=== PATIENT | female | born 1980 | race African-American/Black ===

== ENCOUNTER 2017-05-03 18:00 | Emergency (ER) | payer OTHER | END 2017-05-03 18:44 | disposition home or self-care (01) | LOC: ERS 18:00 | DX: S29.012A Strain of muscle and tendon of back wall of thorax, initial encounter (principal); S39.012A Strain of muscle, fascia and tendon of lower back, initial encounter; F32.9 Major depressive disorder, single episode, unspecified; F41.9 Anxiety disorder, unspecified; F43.10 Post-traumatic stress disorder, unspecified; F17.210 Nicotine dependence, cigarettes, uncomplicated; Z79.899 Other long term (current) drug therapy; V43.62XA Car passenger injured in collision with other type car in traffic accident, initial encounter | CPT/HCPCS: 99284 ==

== ENCOUNTER 2017-07-10 11:30 | Emergency (ER) | payer OTHER ==
--- NOTE | 2017-07-10 12:15 | RAD ---
LEFT HAND 3 VIEWS: Date: 07/10/17 HISTORY: Trauma to hand. FINDINGS: There are no signs of fracture or dislocation. IMPRESSION: Negative left hand. POS: [facility]
[2017-07-10] MEDS ORDERED: Acetaminophen 500 MG TAB ONE ×2 (13:00→13:03)
== END 2017-07-10 13:02 | disposition home or self-care (01) ==
LOC: ERS 11:30
DX: M79.642 Pain in left hand (principal); F32.9 Major depressive disorder, single episode, unspecified; F41.9 Anxiety disorder, unspecified; F43.10 Post-traumatic stress disorder, unspecified; F17.210 Nicotine dependence, cigarettes, uncomplicated; W22.01XA Walked into wall, initial encounter
CPT/HCPCS: 29125

== ENCOUNTER 2017-10-07 14:22 | Emergency (ER) | payer OTHER | END 2017-10-07 15:07 | disposition left against medical advice (07) | LOC: ERS 14:22 | DX: Z53.21 Procedure and treatment not carried out due to patient leaving prior to being seen by health care provider (principal) ==

== ENCOUNTER 2017-10-08 12:01 | Emergency (ER) | payer OTHER ==
[2017-10-08 15:19] LABS: #Basophils 0.1 thou/uL (0.0-0.2); #Lymphocytes 2.4 thou/uL (1.20-3.40); #Monocytes 0.4 thou/uL (0.11-0.59); #Neutrophils 2.1 thou/uL (1.40-6.50); %Basophils 1.4 % (0.0-1.0); %Lymphocytes 48.9 % (21.0-51.0); %Monocytes 7.2 % (0.0-10.0); %Neutrophils 41.6 % (42.0-75.0); Hemoglobin 15.1 g/dL (12.0-16.0); Mean Corpuscular HGB CONC 33.7 g/dL (32.0-36.0); Mean Corpuscular Hemoglobin 33.9 pg (27.0-31.0); Mean Platelet Volume 7.6 fL (7.4-10.4); Platelet Count 193 thou/uL (130-400); RBC Distribution Width 11.6 % (11.5-14.5); Red Blood Cell (RBC) Count 4.45 mill/uL (4.20-5.40)
[2017-10-08 15:37] LABS: BHCG - Serum Negative (NEGATIVE); Pregs Control Background? CLEAR/WHITE (CLR/WHITE); Pregs Control Bar Appear? YES (CONTROL BAR)
[2017-10-08 15:39] LABS: ALT (SGPT) 9 U/L (8-55); AST (SGOT) 17 U/L (5-34); Albumin 4.9 g/dL (3.5-5.0); Alkaline Phosphatase 75 U/L (40-150); Anion Gap 12 mmol/L (10-20); BUN (Urea Nitrogen) 11 mg/dL (7.0-18.7); Bilirubin, Total 0.6 mg/dL (0.2-1.2); Calc. Creatinine Clearance 0 mL/min (70-130); Carbon Dioxide 27 mmol/L (22-29); Chloride 103 mmol/L (98-107); Estimated GFR-MDRD 89; Globulin 2.9 g/dL (2.4-3.5); Glucose 83 mg/dL (70-105); Potassium 3.9 mmol/L (3.5-5.1); Protein, Total 7.8 g/dL (6.0-8.3); Sodium 138 mmol/L (136-145)
--- NOTE | 2017-10-08 15:50 | CT ---
NONCONTRAST CT HEAD: 10/08/17 HISTORY: Headache and neck stiffness. Patient's symptoms have been present for one month. COMPARISON: 03/10/17. FINDINGS: There is no evidence of a hemorrhage, acute infarction, mass effect, or midline shift. Ventricular sy stem is normal in size, shape, and position. There has been no interval change when compared to the p rior exam. IMPRESSION: No acute intracranial abnormality is demonstrated. POS: [facility]
[2017-10-08] MEDS ORDERED: Ketorolac Tromethamine 30 MG/ML VIAL ONE (15:52)
[2017-10-08] MEDS ORDERED: diphenhydrAMINE 50 MG/ML VIAL ONE (15:52)
[2017-10-08] MEDS ORDERED: methylPREDNISolone Sod Succ/PF 125 MG/2 ML VIAL ONE (17:40)
[2017-10-08] MEDS ORDERED: Magnesium Sulfate 2 GM/100 ML BAG ONE (17:40)
--- NOTE | 2017-10-12 13:25 | EKG ---
Test Reason : Blood Pressure : / mmHG Vent. Rate : 059 BPM Atrial Rate : 059 BPM P-R Int : 154 ms QRS Dur : 086 ms QT Int : 422 ms P-R-T Axes : 067 071 033 degrees QTc Int : 417 ms Sinus bradycardia with sinus arrhythmia Otherwise normal ECG Confirmed by SHIRA VEGA, CHEO ([id number]), commissioning editor VANESSA DAVIS ([id number]) on 10/12/2017 1:25:04 PM Referred By: Confirmed By:CHEO SILVA MD
== END 2017-10-08 19:00 | disposition home or self-care (01) ==
LOC: ERS 12:01
DX: G43.909 Migraine, unspecified, not intractable, without status migrainosus (principal); F41.9 Anxiety disorder, unspecified; F32.9 Major depressive disorder, single episode, unspecified; F17.210 Nicotine dependence, cigarettes, uncomplicated; F43.10 Post-traumatic stress disorder, unspecified
CPT/HCPCS: 70450; 80053; 84703; 85025; 93005; 96361; 96365; 96375; 99406; J1200; J1885; J2930; J3475

== ENCOUNTER 2017-11-27 18:57 | Emergency (ER) | payer OTHER ==
--- NOTE | 2017-11-27 20:19 | RAD ---
THREE VIEWS OF THE LEFT SHOULDER: 11/27/17 INDICATION; Left shoulder pain. COMPARISON: None. FINDINGS: No acute fracture or subluxation is evident. The visualized left lung is clear. AC joint is normal ap pearing. IMPRESSION: No acute osseous abnormality. POS: [facility]
--- NOTE | 2017-11-27 20:32 | RAD ---
FIVE VIEWS CERVICAL SPINE: 11/27/17 INDICATION: History of neck injury. FINDINGS: The exam is compared to a prior dated 02/25/12. The spinal alignment is preserved. Prevertebral soft tissues are normal in appearance. No acute fract ure or subluxation is evident. Lung apices are clear. Lateral masses are symmetric appearing. IMPRESSION: No acute osseous abnormality. POS: [facility]
[2017-11-27] MEDS ORDERED: Acetaminophen 500 MG TAB ONE (20:44)
== END 2017-11-27 21:02 | disposition home or self-care (01) ==
LOC: ERS 18:57
DX: S16.1XXA Strain of muscle, fascia and tendon at neck level, initial encounter (principal); S46.911A Strain of unspecified muscle, fascia and tendon at shoulder and upper arm level, right arm, initial encounter; F41.9 Anxiety disorder, unspecified; F32.9 Major depressive disorder, single episode, unspecified; F43.10 Post-traumatic stress disorder, unspecified; F17.210 Nicotine dependence, cigarettes, uncomplicated; W17.89XA Other fall from one level to another, initial encounter
CPT/HCPCS: 72040

== ENCOUNTER 2018-01-19 02:53 | Emergency (ER) | payer OTHER ==
[2018-01-19] MEDS ORDERED: Lorazepam 2 MG/ML VIAL ONE (03:46)
[2018-01-19 04:28] LABS: #Basophils 0.1 thou/uL (0.0-0.2); #Eosinphils 0.1 thou/uL (0.0-0.7); #Lymphocytes 1.3 thou/uL (1.20-3.40); #Monocytes 0.3 thou/uL (0.11-0.59); #Neutrophils 3.5 thou/uL (1.40-6.50); %Eosinophils 1.9 % (0.0-10.0); %Monocytes 5.6 % (0.0-10.0); %Neutrophils 66.5 % (42.0-75.0); Hemoglobin 14.8 g/dL (12.0-16.0); Mean Corpuscular HGB CONC 33.6 g/dL (32.0-36.0); Mean Corpuscular Hemoglobin 32.9 pg (27.0-31.0); Mean Corpuscular Volume 97.9 fl (81.0-99.0); Mean Platelet Volume 7.9 fL (7.4-10.4); Platelet Count 174 thou/uL (130-400); RBC Distribution Width 11.6 % (11.5-14.5); Red Blood Cell (RBC) Count 4.51 mill/uL (4.20-5.40); White Blood Cell (WBC) Count 5.2 thou/uL (4.8-10.8)
[2018-01-19 04:43] LABS: BHCG - Serum Negative (NEGATIVE)
[2018-01-19 04:44] LABS: Pregs Control Background? CLEAR/WHITE (CLR/WHITE); Pregs Control Bar Appear? YES (CONTROL BAR)
[2018-01-19 05:04] LABS: ALT (SGPT) 8 U/L (8-55); AST (SGOT) 19 U/L (5-34); Alkaline Phosphatase 81 U/L (40-150); Anion Gap 12 mmol/L (10-20); BUN (Urea Nitrogen) 14 mg/dL (7.0-18.7); Bilirubin, Total 0.3 mg/dL (0.2-1.2); CK (CPK) 195 U/L (29-168); Calc. Creatinine Clearance 0 mL/min (70-130); Carbon Dioxide 26 mmol/L (22-29); Chloride 102 mmol/L (98-107); Estimated GFR-MDRD 74; Globulin 2.9 g/dL (2.4-3.5); Glucose 100 mg/dL (70-105); Potassium 3.3 mmol/L (3.5-5.1); Protein, Total 7.9 g/dL (6.0-8.3); Sodium 137 mmol/L (136-145)
[2018-01-19 05:08] LABS: CKMB 0.6 ng/mL (0-6.6); Troponin I Less than 0.010 ng/mL (< 0.028)
== END 2018-01-19 06:30 | disposition home or self-care (01) ==
LOC: ERS 02:53
DX: F12.10 Cannabis abuse, uncomplicated (principal); R00.2 Palpitations; F41.9 Anxiety disorder, unspecified; F32.9 Major depressive disorder, single episode, unspecified; F43.10 Post-traumatic stress disorder, unspecified
CPT/HCPCS: 80053; 82553; 84484; 84703; 85025; 93005; 96361; 96374; J2060

== ENCOUNTER 2018-01-29 12:03 | Observation (INO) | payer OTHER ==
[2018-01-29 13:33] LABS: #Lymphocytes 1.6 thou/uL (1.20-3.40); #Monocytes 0.2 thou/uL (0.11-0.59); #Neutrophils 2.4 thou/uL (1.40-6.50); %Basophils 0.9 % (0.0-1.0); %Eosinophils 0.8 % (0.0-10.0); %Lymphocytes 37.5 % (21.0-51.0); %Monocytes 4.1 % (0.0-10.0); %Neutrophils 56.7 % (42.0-75.0); Hemoglobin 14.6 g/dL (12.0-16.0); Mean Corpuscular Hemoglobin 33.4 pg (27.0-31.0); Mean Corpuscular Volume 98.1 fL (78.0-98.0); Mean Platelet Volume 7.8 fL (7.4-10.4); Platelet Count 173 thou/uL (130-400); RBC Distribution Width 11.6 % (11.5-14.5); Red Blood Cell (RBC) Count 4.37 mill/uL (4.20-5.40); White Blood Cell (WBC) Count 4.2 thou/uL (4.8-10.8)
--- NOTE | 2018-01-29 13:52 | RAD ---
2 VIEWS CHEST: Date: 01/29/18 COMPARISON: 10/06/15. HISTORY: Chest pain. FINDINGS: Two views of the chest show normal sized cardiomediastinal silhouette. There is no evidence of consol idation, mass, or pleural effusion. The bones are unremarkable. IMPRESSION: No evidence of acute cardiopulmonary disease. POS: [facility]
[2018-01-29 13:56] LABS: ALT (SGPT) 10 U/L (8-55); AST (SGOT) 16 U/L (5-34); Alkaline Phosphatase 63 U/L (40-150); Anion Gap 9 mmol/L (10-20); BUN (Urea Nitrogen) 11 mg/dL (7.0-18.7); Bilirubin, Total 0.3 mg/dL (0.2-1.2); CK (CPK) 170 U/L (29-168); Calc. Creatinine Clearance 0 mL/min (70-130); Calcium 8.5 mg/dL (7.8-10.44); Carbon Dioxide 24 mmol/L (22-29); Chloride 112 mmol/L (98-107); Estimated GFR-MDRD Greater than 90; Globulin 2.2 g/dL (2.4-3.5); Glucose 68 mg/dL (70-105); Potassium 3.5 mmol/L (3.5-5.1); Protein, Total 6.2 g/dL (6.0-8.3); Sodium 141 mmol/L (136-145)
[2018-01-29 13:58] LABS: CKMB 0.7 ng/mL (0-6.6); Troponin I Less than 0.010 ng/mL (< 0.028)
[2018-01-29] MEDS ORDERED: Lorazepam 2 MG/ML VIAL ONE (14:38)
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
[2018-01-29] MEDS ORDERED: Ondansetron HCl/PF 4 MG/2 ML Vial IVP PRN (17:08)
[2018-01-29] MEDS ORDERED: Ondansetron ODT 4 MG TAB PO PRN (17:08)
[2018-01-29] MEDS ORDERED: Lorazepam 0.5 MG TAB PO PRN ×2 (17:08→20:43)
[2018-01-29] MEDS: Acetaminophen 325 MG TAB PO PRN (17:28)
[2018-01-29 17:32] LABS: Magnesium 1.8 mg/dL (1.6-2.6); Phosphorus 2.4 mg/dL (2.3-4.7)
[2018-01-29 17:42] VITALS: BMI 19.9
[2018-01-29 18:57] LABS: Amphetamine Not Detected (NotDetected); Barbiturates Screen Not Detected (NotDetected); Benzodiazepine Screen Detected (NotDetected); Cocaine Metabolite Screen Not Detected (NotDetected); Medtox Control Line Valid? VALID (VALID); Medtox Reader # READER 4; Methadone Not Detected (NotDetected); Methamphetamine Not Detected (NotDetected); Opiate Screen Not Detected (NotDetected); Oxycodone Screen Not Detected (NotDetected); Phencyclidine (PCP) Not Detected (NotDetected); THC/Cannabinoid Screen Detected (NotDetected); Tricyclic Screen Not Detected (NotDetected)
[2018-01-29 19:27] LABS: Troponin I Less than 0.010 ng/mL (< 0.028)
[2018-01-29] MEDS: busPIRone HCl 5 MG TAB PO SCH (21:00)
[2018-01-29 22:12] LABS: Troponin I Less than 0.010 ng/mL (< 0.028)
[2018-01-30 06:26] LABS: Cardiac Risk 3.1 (Less than 4.5)
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
[2018-01-30] MEDS: Acetaminophen 325 MG TAB PO PRN (07:49)
[2018-01-30] MEDS ORDERED: Aspirin 325 MG TAB PO SCH (09:00)
[2018-01-30] MEDS: busPIRone HCl 5 MG TAB PO SCH (10:41)
[2018-01-30] MEDS ORDERED: busPIRone HCl 5 MG TAB PO SCH (11:45)
[2018-01-30 12:21] VITALS: BP 114/72; TEMP 98.6
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
== END 2018-01-30 14:17 | disposition home or self-care (01) ==
LOC: ERS 12:03 → 2SW 16:57
PROVIDERS: ADMIT Student in an Organized Health Care Education/Training Program; ATTEND Student in an Organized Health Care Education/Training Program
DX: F41.9 Anxiety disorder, unspecified (principal); R07.89 Other chest pain; R55 Syncope and collapse; F31.9 Bipolar disorder, unspecified; F41.0 Panic disorder [episodic paroxysmal anxiety]; F12.10 Cannabis abuse, uncomplicated; Z88.8 Allergy status to other drugs, medicaments and biological substances
CPT/HCPCS: 36415; 36416; 71046; 80053; 80061; 80306; 82550; 82553; 83036; 83735; 84100; 84443; 84484; 85025; 93005; 93017; 93306; 96361; 96374; G0378; J2060

== ENCOUNTER 2018-05-20 13:38 | Emergency (ER) | payer OTHER ==
[~2018-05-20 13:38] MED LIST: ISOVUE-370 76%-LOCM 1 ML ONE
[2018-05-20 14:03] LABS: #Basophils 0.1 thou/uL (0.0-0.2); #Eosinphils 0.1 thou/uL (0.0-0.7); #Lymphocytes 1.8 thou/uL (1.20-3.40); #Monocytes 0.2 thou/uL (0.11-0.59); #Neutrophils 2.1 thou/uL (1.40-6.50); %Basophils 1.4 % (0.0-1.0); %Eosinophils 1.6 % (0.0-10.0); %Lymphocytes 43.3 % (21.0-51.0); %Monocytes 4.8 % (0.0-10.0); %Neutrophils 48.9 % (42.0-75.0); Hemoglobin 13.6 g/dL (12.0-16.0); Lavender RECEIVED; Mean Corpuscular HGB CONC 32.7 g/dL (32.0-36.0); Mean Corpuscular Hemoglobin 33.2 pg (27.0-31.0); Mean Platelet Volume 7.2 fL (7.4-10.4); Platelet Count 200 thou/uL (130-400); RBC Distribution Width 11.2 % (11.5-14.5); Red RECEIVED; Red Blood Cell (RBC) Count 4.08 mill/uL (4.20-5.40); White Blood Cell (WBC) Count 4.3 thou/uL (4.8-10.8)
[2018-05-20 14:28] LABS: ALT (SGPT) 13 U/L (8-55); AST (SGOT) 19 U/L (5-34); Albumin 4.3 g/dL (3.5-5.0); Alkaline Phosphatase 91 U/L (40-150); Anion Gap 9 mmol/L (10-20); BUN (Urea Nitrogen) 11 mg/dL (7.0-18.7); Bilirubin, Total 0.2 mg/dL (0.2-1.2); Calc. Creatinine Clearance 0 mL/min (70-130); Calcium 9.4 mg/dL (7.8-10.44); Carbon Dioxide 30 mmol/L (22-29); Chloride 106 mmol/L (98-107); Estimated GFR-MDRD 86; Globulin 2.6 g/dL (2.4-3.5); Lipase 33 U/L (8-78); Protein, Total 6.9 g/dL (6.0-8.3); Sodium 141 mmol/L (136-145)
[2018-05-20 14:31] LABS: Glucose 58 mg/dL (70-105)
--- NOTE | 2018-05-20 14:57 | CT ---
CT HEAD WITHOUT CONTRAST: Technique: Multiple axial tomograms were obtained through the head without IV enhancement. Indications: Headache. FINDINGS: Ventricles have normal size and position. No evidence of intracranial mass or hemorrhage. No edema or infarct apparent. Sinuses and mastoids are well aerated. IMPRESSION: No acute abnormality. POS: [facility]
[2018-05-20 16:06] LABS: BHCG - Serum Negative (NEGATIVE); Pregs Control Background? CLEAR/WHITE (CLR/WHITE); Pregs Control Bar Appear? YES (CONTROL BAR)
[2018-05-20] MEDS ORDERED: Ketorolac Tromethamine 30 MG/ML VIAL ONE (16:13)
[2018-05-20 17:28] LABS: Bilirubin Negative (Negative); Blood, Urine Negative (Negative); Clarity CLEAR (Clear); Glucose, Urine (Dipstick) Negative (Negative); Leukocyte Negative (Negative); Nitrite Negative (Negative); Protein, Urine (Dipstick) Negative (Neg-Trace)
[2018-05-20 17:36] LABS: Specific Gravity, Urine 1.058 (1.002-1.036)
--- NOTE | 2018-05-20 18:07 | CT ---
CT ABDOMEN AND PELVIS WITH IV CONTRAST: Date: 05/20/18 Multiple axial tomograms obtained through the abdomen and pelvis with IV enhancement. INDICATION: Abdominal pain. FINDINGS: Lung bases appear clear. Liver, spleen, and pancreas unremarkable. Stomach is distended with ingested material. Adrenal glands unremarkable. Kidneys unremarkable. There is a small, nonobstructing calculus in the lower pole collecting structur es of the right kidney measuring approximately 2.0 mm. Urinary bladder is distended and unremarkable. Small bowel loops appear unremarkable. Appendix is difficult to delineate due to the lack of intraabd ominal fat and the unenhanced bowel. The appendix is probably visualized and appears unremarkable. Th ere is stool throughout the colon. Images through the pelvis show mildly prominent uterus. There may be a small amount of fluid in deep pelvis. IMPRESSION: No evidence of acute process. POS: [facility]
[2018-05-20 18:09] LABS: Pregnancy Test - Urine (BHCG) Negative (Negative); Pregu Control Background? CLEAR/WHITE (CLR/WHITE); Pregu Control Bar Appear? YES (CONTROL BAR); Specific Gravity 1.058 (1.002-1.036)
[2018-05-20 18:19] LABS: Amphetamine Not Detected (NotDetected); Barbiturates Screen Not Detected (NotDetected); Benzodiazepine Screen Not Detected (NotDetected); Cocaine Metabolite Screen Not Detected (NotDetected); Medtox Control Line Valid? VALID (VALID); Medtox Reader # READER 4; Methadone Not Detected (NotDetected); Methamphetamine Not Detected (NotDetected); Opiate Screen Not Detected (NotDetected); Oxycodone Screen Not Detected (NotDetected); Phencyclidine (PCP) Not Detected (NotDetected); THC/Cannabinoid Screen Detected (NotDetected); Tricyclic Screen Not Detected (NotDetected)
== END 2018-05-20 18:20 | disposition home or self-care (01) ==
LOC: ERS 13:38
DX: R10.33 Periumbilical pain (principal); F41.9 Anxiety disorder, unspecified; F32.9 Major depressive disorder, single episode, unspecified; Z79.899 Other long term (current) drug therapy
CPT/HCPCS: 36415; 36416; 70450; 74177; 80053; 80306; 81003; 81025; 83690; 84146; 84703; 85025; 96374; J1885

== ENCOUNTER 2018-05-30 08:48 | Emergency (ER) | payer OTHER ==
[2018-05-30] MEDS ORDERED: Acetaminophen 500 MG TAB ONE (09:44)
[2018-05-30] MEDS ORDERED: Dexamethasone 10 MG/ML VIAL ONE (09:44)
--- NOTE | 2018-05-30 10:10 | RAD ---
CHEST 2 VIEWS: HISTORY: A 38-year-old female with a history of cough and congestion. COMPARISON: 01/29/2018. FINDINGS: Heart size is within normal limits. The lungs are clear. No pneumonia, edema, pleural effusion, or other acute intrathoracic disease. POS: [facility]
[2018-05-30] MEDS ORDERED: Azithromycin 250 MG TAB ONE (10:24)
== END 2018-05-30 10:26 | disposition home or self-care (01) ==
LOC: ERS 08:48
DX: J02.9 Acute pharyngitis, unspecified (principal); R06.00 Dyspnea, unspecified; R05 Cough; F41.9 Anxiety disorder, unspecified; F43.10 Post-traumatic stress disorder, unspecified; Z71.6 Tobacco abuse counseling; Z79.899 Other long term (current) drug therapy
CPT/HCPCS: 71046; 87081; 87430; 94640; 96372; 99406; J1100; J7620

== ENCOUNTER 2018-07-14 08:58 | Emergency (ER) | payer OTHER ==
[2018-07-14] MEDS ORDERED: Lorazepam 2 MG/ML VIAL ONE (09:26)
[2018-07-14] MEDS ORDERED: Morphine 4 MG/ML VIAL ONE (09:27)
[2018-07-14] MEDS ORDERED: Ondansetron PF 4 MG/2 ML Vial ONE (09:27)
[2018-07-14 09:34] LABS: #Eosinphils 0.1 thou/uL (0.0-0.7); #Monocytes 0.2 thou/uL (0.11-0.59); #Neutrophils 2.2 thou/uL (1.40-6.50); %Eosinophils 1.6 % (0.0-10.0); %Monocytes 5.1 % (0.0-10.0); %Neutrophils 48.2 % (42.0-75.0); Hemoglobin 14.8 g/dL (12.0-16.0); Mean Corpuscular HGB CONC 33.1 g/dL (32.0-36.0); Mean Corpuscular Hemoglobin 31.7 pg (27.0-31.0); Mean Platelet Volume 7.8 fL (7.4-10.4); Platelet Count 197 thou/uL (130-400); RBC Distribution Width 11.5 % (11.5-14.5); Red Blood Cell (RBC) Count 4.65 mill/uL (4.20-5.40); White Blood Cell (WBC) Count 4.5 thou/uL (4.8-10.8)
[2018-07-14 09:49] LABS: BHCG - Serum Negative (NEGATIVE); Pregs Control Background? CLEAR/WHITE (CLR/WHITE); Pregs Control Bar Appear? YES (CONTROL BAR)
[2018-07-14] MEDS ORDERED: Morphine 2 MG/ML SYRINGE ONE ×2 (09:56→11:34)
[2018-07-14 09:58] LABS: ALT (SGPT) 14 U/L (8-55); AST (SGOT) 27 U/L (5-34); Alkaline Phosphatase 88 U/L (40-150); Anion Gap 16 mmol/L (10-20); BUN (Urea Nitrogen) 10 mg/dL (7.0-18.7); Bilirubin, Total 0.4 mg/dL (0.2-1.2); Calc. Creatinine Clearance 0 mL/min (70-130); Calcium 10.3 mg/dL (7.8-10.44); Carbon Dioxide 23 mmol/L (22-29); Chloride 102 mmol/L (98-107); Estimated GFR-MDRD 80; Globulin 3.4 g/dL (2.4-3.5); Glucose 90 mg/dL (70-105); Lipase 21 U/L (8-78); Potassium 3.7 mmol/L (3.5-5.1); Protein, Total 8.4 g/dL (6.0-8.3); Sodium 137 mmol/L (136-145)
--- NOTE | 2018-07-14 11:10 | ULT ---
PELVIC ULTRASOUND: Date: 07/14/18 COMPARISON: 03/19/13. HISTORY: Right lower pelvic pain. TECHNIQUE: Multiplanar Velez scale and color Doppler images were obtained in a transabdominal and transvaginal pe lvic ultrasound. Spectral analysis of the Doppler waveforms were performed. FINDINGS: There is a nabothian cyst in the cervix. The uterus is normal in size and appearance without focal ab normality. The endometrial stripe is normal in thickness measuring 6.0 mm. A small amount of free fluid is seen in the pelvis. Both ovaries are normal in size and appearance an d demonstrate normal internal flow. IMPRESSION: Nabothian cyst; otherwise unremarkable exam. POS: [facility]
--- NOTE | 2018-07-14 12:06 | CT ---
CT ABDOMEN AND PELVIS WITH CONTRAST: Date: 07/14/18 COMPARISON: 05/20/18. \ HISTORY: Abdominal pain and vaginal bleeding that began last night. Recent tubal ligation. TECHNIQUE: Multiple contiguous axial images were obtained in a CT of the abdomen and pelvis with contrast. Coron al reformats were performed. FINDINGS: The liver, gallbladder, kidneys, adrenal glands, spleen, and pancreas are unremarkable. A small amoun t of free fluid is seen in the pelvis. The reproductive organs are otherwise unremarkable. No abdomin al or pelvic lymphadenopathy seen. The large and small bowel are unremarkable. The appendix is normal. The osseous structures, visualized inferior thorax, and abdominal wall soft tissues are unremarkable. IMPRESSION: Nonspecific small amount of free fluid in the pelvis; otherwise unremarkable exam. POS: [facility]
[2018-07-14] MEDS ORDERED: Iopamidol 370 76% 100 ML VIAL ONE (12:44)
== END 2018-07-14 11:57 | disposition home or self-care (01) ==
LOC: ERS 08:58
DX: N93.9 Abnormal uterine and vaginal bleeding, unspecified (principal); N88.8 Other specified noninflammatory disorders of cervix uteri; F41.9 Anxiety disorder, unspecified; F32.9 Major depressive disorder, single episode, unspecified; F43.10 Post-traumatic stress disorder, unspecified
CPT/HCPCS: 74177; 76856; 80053; 83690; 84703; 85025; 86850; 86900; 86901; 96361; 96374; 96375; 96376; J2060; J2270; J2405

== ENCOUNTER 2018-09-10 18:50 | Emergency (ER) | payer OTHER ==
[2018-09-10] MEDS ORDERED: Lorazepam 2 MG/ML VIAL ONE (20:12)
[2018-09-10] MEDS ORDERED: Ketorolac Tromethamine 30 MG/ML VIAL ONE ×2 (20:12→22:08)
[2018-09-10 20:34] LABS: #Basophils 0.1 thou/uL (0.0-0.2); #Lymphocytes 2.8 thou/uL (1.20-3.40); #Monocytes 0.4 thou/uL (0.11-0.59); #Neutrophils 3.1 thou/uL (1.40-6.50); %Basophils 1.4 % (0.0-1.0); %Eosinophils 0.6 % (0.0-10.0); %Lymphocytes 43.5 % (21.0-51.0); %Monocytes 6.6 % (0.0-10.0); Hemoglobin 14.2 g/dL (12.0-16.0); Mean Corpuscular HGB CONC 32.8 g/dL (32.0-36.0); Mean Corpuscular Hemoglobin 32.3 pg (27.0-31.0); Mean Corpuscular Volume 98.6 fL (78.0-98.0); Mean Platelet Volume 7.5 fL (7.4-10.4); Platelet Count 208 thou/uL (130-400); RBC Distribution Width 11.7 % (11.5-14.5); Red Blood Cell (RBC) Count 4.39 mill/uL (4.20-5.40); White Blood Cell (WBC) Count 6.4 thou/uL (4.8-10.8)
[2018-09-10 20:56] LABS: ALT (SGPT) 16 U/L (8-55); AST (SGOT) 22 U/L (5-34); Albumin 4.4 g/dL (3.5-5.0); Alkaline Phosphatase 92 U/L (40-150); Anion Gap 14 mmol/L (10-20); BUN (Urea Nitrogen) 9 mg/dL (7.0-18.7); Bilirubin, Total 0.5 mg/dL (0.2-1.2); Calc. Creatinine Clearance 0 mL/min (70-130); Calcium 9.9 mg/dL (7.8-10.44); Carbon Dioxide 20 mmol/L (22-29); Chloride 107 mmol/L (98-107); Estimated GFR-MDRD 78; Globulin 2.9 g/dL (2.4-3.5); Glucose 76 mg/dL (70-105); Lipase 15 U/L (8-78); Potassium 3.3 mmol/L (3.5-5.1); Protein, Total 7.3 g/dL (6.0-8.3); Sodium 138 mmol/L (136-145)
--- NOTE | 2018-09-10 21:26 | ULT ---
PELVIC ULTRASOUND: 09/10/18 HISTORY: Right lower quadrant pain. COMPARISON: None. TECHNIQUE: Transabdominal imaging of the pelvis is performed. Ovaries interrogated with maier scale, color flow, doppler imaging with spectral waveform analysis. FINDINGS: Evaluation is limited by extensive bowel gas. The uterus is identified, measuring 8.0 x 4.6 x 4.8 cm. Suboptimal evaluation of myometrium. Suboptimal evaluation of the endometrium. Left and right ovary has a normal echotexture. Right ovary measures 2.8 x 2.6 x 2.2 cm. Left ovary me asures 2.2 x 1.9 x 1.6 cm. No free fluid. OVARIAN DOPPLER: Vascular flow to both ovaries. IMPRESSION: Limited evaluation of the uterus and endometrium. If there is concern for uterine/endometrial patholo gy, endovaginal imaging can be performed. POS: [facility]
[2018-09-10] MEDS ORDERED: hydrOXYzine 25 MG TAB ONE (21:31)
[2018-09-10] MEDS ORDERED: Morphine 4 MG/ML VIAL ONE (23:11)
[2018-09-10 23:17] LABS: Bacteria/HPF None Seen HPF (None Seen); Hyaline Casts/LPF 0-3 HYALINE CAST LPF (0-3 Hyaline); Pathc Cast-AUWi Flag 0.93 (0-2.49); Pregnancy Test - Urine (BHCG) Negative (Negative); Pregu Control Background? CLEAR/WHITE (CLR/WHITE); Pregu Control Bar Appear? YES (CONTROL BAR); WBC/HPF 21-50 HPF (0-3)
[2018-09-10 23:18] LABS: RBC/HPF GREATER THAN 50-TNTC HPF (0-3)
[2018-09-10 23:19] LABS: Bilirubin Negative (Negative); Glucose, Urine (Dipstick) Negative (Negative); Nitrite Negative (Negative); Protein, Urine (Dipstick) 30 mg/dL (Neg-Trace); Urobilinogen 0.2 mg/dL (0.2-1.0); Yeast-AUWi Flag 41.4 (0-25.0); pH, Urine 7.5 (5.0-9.0)
[2018-09-10 23:22] LABS: Clarity Cloudy (Clear)
[2018-09-10 23:24] LABS: Blood, Urine Large (Negative); Leukocyte Small (Negative)
== END 2018-09-10 23:44 | disposition home or self-care (01) ==
LOC: ERS 18:50
DX: N80.9 Endometriosis, unspecified (principal); F41.9 Anxiety disorder, unspecified; F32.9 Major depressive disorder, single episode, unspecified; F43.10 Post-traumatic stress disorder, unspecified
CPT/HCPCS: 36415; 76856; 80053; 81003; 81015; 81025; 83690; 85025; 93976; 96374; 96375; J1885; J2060; J2270

== ENCOUNTER 2018-09-22 10:12 | Emergency (ER) | payer OTHER ==
[2018-09-22] MEDS ORDERED: Morphine 4 MG/ML VIAL ONE (12:56)
[2018-09-22 13:05] LABS: Bilirubin Negative (Negative); Blood, Urine Negative (Negative); Clarity CLEAR (Clear); Glucose, Urine (Dipstick) Negative (Negative); Leukocyte Negative (Negative); Nitrite Negative (Negative); Protein, Urine (Dipstick) Negative (Neg-Trace); Urobilinogen 0.2 mg/dL (0.2-1.0)
== END 2018-09-22 13:32 | disposition home or self-care (01) ==
LOC: ERS 10:12
DX: N80.9 Endometriosis, unspecified (principal); F43.10 Post-traumatic stress disorder, unspecified; F41.9 Anxiety disorder, unspecified; Z79.899 Other long term (current) drug therapy
CPT/HCPCS: 81003; 87086; 96372; J2270

== ENCOUNTER 2018-10-07 13:51 | Emergency (ER) | payer OTHER ==
[2018-10-07 15:20] LABS: #Basophils 0.1 thou/uL (0.0-0.2); #Eosinphils 0.1 thou/uL (0.0-0.7); #Lymphocytes 2.1 thou/uL (1.20-3.40); #Monocytes 0.4 thou/uL (0.11-0.59); #Neutrophils 5.1 thou/uL (1.40-6.50); %Lymphocytes 27.2 % (21.0-51.0); %Monocytes 4.7 % (0.0-10.0); %Neutrophils 66.1 % (42.0-75.0); Hemoglobin 14.6 g/dL (12.0-16.0); Mean Corpuscular HGB CONC 31.9 g/dL (32.0-36.0); Mean Corpuscular Hemoglobin 31.9 pg (27.0-31.0); Mean Platelet Volume 7.3 fL (7.4-10.4); Platelet Count 186 thou/uL (130-400); RBC Distribution Width 11.8 % (11.5-14.5); Red Blood Cell (RBC) Count 4.58 mill/uL (4.20-5.40); White Blood Cell (WBC) Count 7.7 thou/uL (4.8-10.8)
[2018-10-07 15:45] LABS: ALT (SGPT) 78 U/L (8-55); AST (SGOT) 47 U/L (5-34); Albumin 4.5 g/dL (3.5-5.0); Alkaline Phosphatase 85 U/L (40-150); Anion Gap 13 mmol/L (10-20); BUN (Urea Nitrogen) 13 mg/dL (7.0-18.7); Bilirubin, Total 0.2 mg/dL (0.2-1.2); Calc. Creatinine Clearance 0 mL/min (70-130); Calcium 9.4 mg/dL (7.8-10.44); Carbon Dioxide 21 mmol/L (22-29); Chloride 108 mmol/L (98-107); Estimated GFR-MDRD Greater than 90; Globulin 2.6 g/dL (2.4-3.5); Glucose 84 mg/dL (70-105); Potassium 3.8 mmol/L (3.5-5.1); Protein, Total 7.1 g/dL (6.0-8.3); Sodium 138 mmol/L (136-145)
== END 2018-10-07 16:00 | disposition home or self-care (01) ==
LOC: ERS 13:51
DX: F30.8 Other manic episodes (principal); F41.9 Anxiety disorder, unspecified; F31.9 Bipolar disorder, unspecified; F43.10 Post-traumatic stress disorder, unspecified; Z79.899 Other long term (current) drug therapy
CPT/HCPCS: 36415; 80053; 85025; 93005

== ENCOUNTER 2018-11-22 00:40 | Observation (INO) | payer OTHER ==
[2018-11-22] MEDS ORDERED: Morphine 2 MG/ML SYRINGE ONE (01:14)
[2018-11-22 01:58] LABS: #Lymphocytes 1.4 thou/uL (1.20-3.40); #Monocytes 0.3 thou/uL (0.11-0.59); #Neutrophils 4.5 thou/uL (1.40-6.50); %Basophils 0.7 % (0.0-1.0); %Eosinophils 0.4 % (0.0-10.0); %Lymphocytes 22.7 % (21.0-51.0); %Monocytes 4.3 % (0.0-10.0); %Neutrophils 71.8 % (42.0-75.0); Hemoglobin 12.8 g/dL (12.0-16.0); Mean Corpuscular HGB CONC 32.3 g/dL (32.0-36.0); Mean Corpuscular Hemoglobin 31.6 pg (27.0-31.0); Mean Corpuscular Volume 97.9 fL (78.0-98.0); Mean Platelet Volume 6.9 fL (7.4-10.4); Platelet Count 197 thou/uL (130-400); RBC Distribution Width 11.8 % (11.5-14.5); Red Blood Cell (RBC) Count 4.06 mill/uL (4.20-5.40); White Blood Cell (WBC) Count 6.3 thou/uL (4.8-10.8)
[2018-11-22 02:18] LABS: ALT (SGPT) 18 U/L (8-55); AST (SGOT) 18 U/L (5-34); Acetaminophen Less than 6.0 mcg/mL (10.0-30.0); Alcohol Less than 10 mg/dL (Less than 10); Alkaline Phosphatase 67 U/L (40-150); Anion Gap 12 mmol/L (10-20); BUN (Urea Nitrogen) 13 mg/dL (7.0-18.7); Bilirubin, Total 0.4 mg/dL (0.2-1.2); Calc. Creatinine Clearance 0 mL/min (70-130); Calcium 8.8 mg/dL (7.8-10.44); Carbon Dioxide 24 mmol/L (22-29); Chloride 105 mmol/L (98-107); Estimated GFR-MDRD Greater than 90; Globulin 2.3 g/dL (2.4-3.5); Glucose 149 mg/dL (70-105); Lipase 26 U/L (8-78); Potassium 3.3 mmol/L (3.5-5.1); Protein, Total 6.3 g/dL (6.0-8.3); Salicylate Less than 8.0 mg/dL (15.0-30.0); Sodium 138 mmol/L (136-145)
[2018-11-22] MEDS ORDERED: hydrOXYzine 25 MG TAB ONE (02:29)
[2018-11-22 02:52] LABS: Bilirubin Negative (Negative); Blood, Urine Negative (Negative); Clarity CLOUDY (Clear); Glucose, Urine (Dipstick) Negative (Negative); Leukocyte Negative (Negative); Nitrite Negative (Negative); Protein, Urine (Dipstick) Negative (Neg-Trace); Specific Gravity, Urine 1.016 (1.002-1.036); Urobilinogen 0.2 mg/dL (0.2-1.0)
[2018-11-22 02:54] LABS: Pregnancy Test - Urine (BHCG) Negative (Negative); Pregu Control Background? CLEAR/WHITE (CLR/WHITE); Pregu Control Bar Appear? YES (CONTROL BAR); Specific Gravity 1.016 (1.002-1.036)
[2018-11-22 03:11] LABS: Amphetamine Not Detected (NotDetected); Barbiturates Screen Not Detected (NotDetected); Benzodiazepine Screen Not Detected (NotDetected); Cocaine Metabolite Screen Not Detected (NotDetected); Medtox Control Line Valid? VALID (VALID); Medtox Reader # READER 4; Methadone Not Detected (NotDetected); Methamphetamine Not Detected (NotDetected); Opiate Screen Detected (NotDetected); Oxycodone Screen Not Detected (NotDetected); Phencyclidine (PCP) Not Detected (NotDetected); THC/Cannabinoid Screen Detected (NotDetected); Tricyclic Screen Detected (NotDetected)
[2018-11-22] MEDS ORDERED: Fentanyl 100 MCG/2 ML VIAL ONE (05:20)
[2018-11-22] MEDS ORDERED: Loratadine 10 MG TAB PO PRN (07:31)
[2018-11-22] MEDS ORDERED: Loperamide HCl 2 MG CAP PO PRN (07:31)
[2018-11-22] MEDS ORDERED: Diabetic Tussin 200 MG/10 ML UDCUP PO PRN (07:31)
[2018-11-22] MEDS ORDERED: Cepastat Lozenges 1 LOZ PO PRN (07:31)
[2018-11-22] MEDS ORDERED: Sodium Chloride 0.65% Nasal 44 ML BOT EA NARE PRN (07:31)
[2018-11-22] MEDS ORDERED: Zolpidem Tartrate 5 MG TAB PO PRN (07:31)
[2018-11-22] MEDS ORDERED: Bisacodyl 5 MG TAB PO PRN (07:31)
[2018-11-22] MEDS ORDERED: Eucerin (Mineral Oil/Petrolatum,White) 30 gm Jar TOP PRN (07:31)
[2018-11-22] MEDS ORDERED: Morphine 4 MG/ML VIAL SLOW IVP PRN (07:31)
[2018-11-22] MEDS ORDERED: Ondansetron PF 4 MG/2 ML Vial IVP PRN (07:31)
[2018-11-22] MEDS ORDERED: Sodium Chloride 0.9% 1,000 ML IV SCH (07:31)
[2018-11-22] MEDS ORDERED: Artificial Tears 18 DROP/0.9 ML EA EYE PRN (07:31)
[2018-11-22] MEDS ORDERED: HYDROcodone/Acetaminophen 10/325 mg Tablet PO PRN (07:31)
[2018-11-22] MEDS ORDERED: Acetaminophen 325 MG TAB PO PRN (07:31)
[2018-11-22] MEDS ORDERED: Ondansetron ODT 4 MG TAB PO PRN (07:31)
[2018-11-22] MEDS ORDERED: Senokot S 8.6-50 MG TAB PO PRN (07:31)
[2018-11-22] MEDS ORDERED: Calcium Carbonate 500 MG ChewTAB PO PRN (07:31)
--- NOTE | 2018-11-22 07:36 | CT ---
CT ABDOMEN AND PELVIS WITH IV CONTRAST: Date 11/22/18 INDICATION: Lower abdominal pain with hypotension. COMPARISON: CT abdomen and pelvis dated 07/14/18. FINDINGS: ABDOMEN: The lung bases are clear. The liver, pancreas, adrenal glands, spleen, and kidneys are normal appearing. No free fluid or enlar ged lymph nodes are evident within the abdomen. There is a very tiny 2.4 mm stone within the inferior pole of the right kidney, which is stable. PELVIS: There is a normal appendix in the right lower quadrant. There is mild nonspecific free fluid in the p mario. The bladder is partially decompressed. The rectum and perirectal soft tissues are unremarkable appearing. No acute osseous abnormality is evident. IMPRESSION: 1. No definite CT explanation for the patient's lower abdominal pain and hypotension. 2. Small amount of free fluid in the pelvis may be physiologic in nature. 3. Stable right nephrolithiasis. POS: [facility]
[2018-11-22 09:00] VITALS: BP 115/74; TEMP 97.5; BMI 24.0
[2018-11-22] MEDS ORDERED: Famotidine 20 MG TAB PO SCH (09:00)
[2018-11-22] MEDS ORDERED: Potassium Chloride 20 MEQ TAB PO SCH (10:00)
--- NOTE | 2018-11-22 10:34 | SS ---
DATE OF ADMISSION: 11/22/2018 DATE OF DISCHARGE: 11/22/2018 PRIMARY CARE PHYSICIAN: [facility] Call admission. REASON FOR ADMISSION: Syncope and hypotension, resolved. HISTORY OF PRESENT ILLNESS: A 38-year-old female, who lives at home where she was feeling dizzy and she passed out, and that is why Paramedics was called and the patient was brought to ER. The patient reports that she took her pain medication and at the same time she took increased dose of Seroquel that made her completely worn out and she passed out. She did not have any chest pain or palpitations before passing out, and when she regained consciousness, at that time she was completely fine and normal. She regained consciousness within a few seconds. She did not have subsequently any chest pain, palpitation, or dizziness. Initially, her blood pressure was low, but that has improved with IV fluid. In the emergency room, she was found with mild hypokalemia and lactic acidosis, which came back repeat one as normal, and all other blood test was normal. The patient reports that she has chronic abdominal pain and it was attributed to be due to uterine fibroid and endometriosis as per her [facility] doctor in [place], where she is following to get care and the patient reports that she is planned for preoperative evaluation and eventually she will get hysterectomy. The patient also takes chronic pain medication for her pain and that is why she went to [facility] yesterday to refill her [place] prescription. The patient was also becoming more nervous breakdown from pain and that is why recently dose of Seroquel was also increased. This patient was admitted to the hospital last night and in our emergency room, she had CT abdomen and pelvis, which was completely unremarkable. She had very stable tiny 2 mm nephrolithiasis. The patient does not have any loin pain, hematuria, fever, chills, constipation, diarrhea, melena, or hematochezia. When I saw this patient this morning, the patient was comfortable. Her pain was well controlled with pain medication. REVIEW OF SYSTEMS: CONSTITUTIONAL: Negative for weight loss or gain, ability to conduct usual activities. SKIN: Negative for rash, itching. EYES: Negative for double vision, pain. ENT/MOUTH: Negative for nose bleeding, neck stiffness, pain, tenderness. CARDIOVASCULAR: Negative for palpitations, dyspnea on exertion, orthopnea. RESPIRATORY: Negative for shortness of breath, wheezing, cough, hemoptysis, fever or night sweats. GASTROINTESTINAL: Negative for poor appetite, abdominal pain, heartburn, nausea, vomiting, constipation, or diarrhea. GENITOURINARY: Negative for urgency, frequency, dysuria, nocturia. MUSCULOSKELETAL: Negative for pain, swelling. NEUROLOGIC/PSYCHIATRIC: Negative for anxiety, depression. ALLERGY/IMMUNOLOGIC: Negative for skin rash, bleeding tendency. See my HPI for pertinent positives and negatives. All other review of systems reviewed and negative except as mentioned in HPI. PAST MEDICAL HISTORY: Per the patient, the patient has uterine fibroid and endometriosis, history of seizure, and history of traumatic brain injury. PAST SURGICAL HISTORY: Tubal ligation. PAST PSYCHIATRIC HISTORY: Anxiety, depression, bipolar disorder, and posttraumatic stress disorder. SOCIAL HISTORY: The patient lives at home. She smokes marijuana. She denies any alcohol abuse. She denies any other illicit drug abuse. FAMILY HISTORY: No family history of coronary artery disease, stroke, or cancer. ALLERGIES: IBUPROFEN, REGLAN, AND TORADOL. CURRENT HOME MEDICATIONS: 1. Seroquel 100 mg daily. 2. Hydroxyzine 50 mg q.6 hourly p.r.n. 3. [place] p.r.n. EMERGENCY ROOM COURSE: The patient has received fentanyl 50 mcg, IV fluid, hydroxyzine 50 mg, Zofran 4 mg, and morphine 2 mg. PHYSICAL EXAMINATION: VITAL SIGNS: On arrival, blood pressure 119/101, pulse 97, respiratory rate 20, saturation 99% on room air, temperature 98.7, and weight 58.9 kg. GENERAL: The patient is currently alert, oriented, and in no acute distress. HEENT: Head: Normocephalic and atraumatic. Eyes: Pupils round and reactive to light. Extraocular muscle intact. ENT: Oropharynx within normal limits. Moist mucous membranes. No oral lesion. No pharyngeal erythema. No exudate. NECK: Supple. No JVD. No thyromegaly. No carotid bruit. No jugular venous distention. LUNGS: Clear to auscultation without any rhonchi or rales. CARDIAC: S1 and S2 regular. No murmur. No gallop. No rub. ABDOMEN: Soft. Bowel sounds present. Nontender. Nondistended. No organomegaly. No mass. No suprapubic tenderness. No peritoneal sign. BACK: Unremarkable. No CVA tenderness. EXTREMITIES: Upper extremities, passive movement of all joints are normal. Lower extremities, no edema. Good distal pulsation. SKIN: No skin rash. HEMATOLOGICAL SYSTEM: No lymphadenopathy. NEUROLOGIC: Nonfocal examination. SIGNIFICANT LABORATORY DATA: EKG showing normal sinus rhythm and nonspecific ST-T changes. Abdomen and pelvis showing 2.4 mm stone in the right kidney, which is stable without any other acute process. CBC: WBC 6.3, hemoglobin 12.8, and platelet 197. BMP: Sodium 138, potassium 3.3, chloride 105, carbon dioxide 24, BUN 13, creatinine 0.79, glucose 149, and calcium 8.8. Lactic acid 3.0 and then 1.0. LFT: AST 18, ALT 18, alkaline phosphatase 67, albumin 4.0, and lipase 26. Urinalysis normal. test negative. Urine drug screen positive for cannabinoids. Serum drug screen negative. ASSESSMENT AND PLAN: 1. Syncope, likely due to medication interaction and associated orthostatic hypotension, resolved with intravenous fluid. Electrocardiogram is unremarkable and her cardiac examination is normal. She does not need any more testing. The patient is advised to continue plenty of fluid. 2. Hypokalemia. We will replace potassium chloride 40 mEq p.o. one time dose. 3. Lactic acidosis, likely related with underlying hypotension, currently resolved with repeat testing. The patient is given intravenous fluid and has improvement in lactic acid. Does not suspect any infectious etiology and the patient does not have any clinical history to support infection. 4. Cannabis abuse. The patient is given counseling to avoid illicit drugs. 5. Chronic pain disorder. The patient has received [place] prescription recently yesterday from [facility]. The patient will follow up with primary care physician. 6. Anxiety, depression, and bipolar disorder. The patient will continue all her previous psychiatric medication as per prescription. 7. Deep vein thrombosis prophylaxis not needed because we are expecting discharge today. 8. Gastrointestinal prophylaxis, Pepcid 20 mg p.o. b.i.d. CODE STATUS: The patient is full code. DISPOSITION PLAN: The patient will be discharged later on today. DISCHARGE DISPOSITION: Home. PRIMARY DISCHARGE DIAGNOSES: Syncope due to dehydration and orthostatic hypotension secondary to medication interaction; hypotension, resolved; dehydration, corrected; lactic acidosis, resolved; hypokalemia, corrected. SECONDARY DISCHARGE DIAGNOSES: Anxiety, depression, bipolar disorder, and chronic pain disorder. PRIMARY PROCEDURE/OPERATION: None. RADIOLOGICAL INVESTIGATION: Abdomen and pelvis CT scan. SIGNIFICANT LABORATORY DATA: Please see above. CONTRAINDICATION: None. INPATIENT BREAKER OILER: None. ALLERGIES: REGLAN. DISCHARGE PLAN: Posthospital, the patient will follow up with primary care physician and her regular [facility] doctor in [place]. HOSPITAL COURSE: Please see my HPI above. The patient was admitted and discharged on the same day. Job ID: [id number]
[2018-11-22] MEDS ORDERED: ISOVUE-370 76%-LOCM 1 ML ONE (15:15)
== END 2018-11-22 11:44 | disposition home or self-care (01) ==
LOC: ERS 00:40 → 2SW 04:55
PROVIDERS: ADMIT Internal Medicine; ATTEND Internal Medicine
DX: I95.2 Hypotension due to drugs (principal); T50.905A Adverse effect of unspecified drugs, medicaments and biological substances, initial encounter; E86.0 Dehydration; E87.6 Hypokalemia; E87.2 Acidosis; F43.10 Post-traumatic stress disorder, unspecified; F31.9 Bipolar disorder, unspecified; F12.10 Cannabis abuse, uncomplicated; Z79.899 Other long term (current) drug therapy; Z88.8 Allergy status to other drugs, medicaments and biological substances
CPT/HCPCS: 36415; 74177; 80053; 80306; 80307; 81003; 81025; 83605; 83690; 85025; 86850; 86900; 86901; 93005; 94760; 96361; 96374; 96375; G0378; J2270; J3010; Q9966

== ENCOUNTER 2019-02-15 11:06 | Emergency (ER) | payer OTHER ==
[2019-02-15 12:00] LABS: BHCG - Serum Negative (NEGATIVE); Pregs Control Background? CLEAR/WHITE (CLR/WHITE); Pregs Control Bar Appear? YES (CONTROL BAR)
[2019-02-15] MEDS ORDERED: Acetaminophen 500 MG TAB ONE (12:02)
[2019-02-15 12:05] LABS: Band 5 % (5-11); Eosinophils 2 % (0-10); Hemoglobin 14.7 g/dL (12.0-16.0); Lymphocytes 53 % (21-51); MDiff Complete? YES; Mean Corpuscular HGB CONC 33.5 g/dL (32.0-36.0); Mean Corpuscular Hemoglobin 32.5 pg (27.0-31.0); Monocytes 2 % (0-10); Neutrophil 38 % (42-75); Platelet Count 206 thou/uL (130-400); RBC Distribution Width 12.1 % (11.5-14.5); Red Blood Cell (RBC) Count 4.53 mill/uL (4.20-5.40); White Blood Cell (WBC) Count 4.6 thou/uL (4.8-10.8)
[2019-02-15 12:16] LABS: ALT (SGPT) 12 U/L (8-55); AST (SGOT) 28 U/L (5-34); Albumin 4.8 g/dL (3.5-5.0); Alkaline Phosphatase 79 U/L (40-150); Anion Gap 17 mmol/L (10-20); BUN (Urea Nitrogen) 7 mg/dL (7.0-18.7); Bilirubin, Total 0.5 mg/dL (0.2-1.2); Calc. Creatinine Clearance 0 mL/min (70-130); Calcium 9.8 mg/dL (7.8-10.44); Carbon Dioxide 21 mmol/L (22-29); Chloride 105 mmol/L (98-107); Estimated GFR-MDRD 70; Globulin 3.4 g/dL (2.4-3.5); Glucose 88 mg/dL (70-105); Potassium 4.4 mmol/L (3.5-5.1); Protein, Total 8.2 g/dL (6.0-8.3); Sodium 139 mmol/L (136-145)
== END 2019-02-15 12:37 | disposition left against medical advice (07) ==
LOC: ERS 11:06
DX: R10.84 Generalized abdominal pain (principal); F41.9 Anxiety disorder, unspecified; F31.9 Bipolar disorder, unspecified; F43.10 Post-traumatic stress disorder, unspecified; Z79.899 Other long term (current) drug therapy
CPT/HCPCS: 80053; 84703; 85025; 94760

== ENCOUNTER 2019-02-21 22:49 | Emergency (ER) | payer OTHER ==
[2019-02-21 23:41] LABS: #Eosinphils 0.2 thou/uL (0.0-0.7); #Lymphocytes 2.5 thou/uL (1.20-3.40); #Monocytes 0.7 thou/uL (0.11-0.59); #Neutrophils 5.6 thou/uL (1.40-6.50); %Basophils 0.3 % (0.0-1.0); %Eosinophils 1.9 % (0.0-10.0); %Lymphocytes 27.6 % (21.0-51.0); %Monocytes 7.8 % (0.0-10.0); %Neutrophils 62.3 % (42.0-75.0); BHCG - Serum Negative (NEGATIVE); Hemoglobin 10.3 g/dL (12.0-16.0); Mean Corpuscular HGB CONC 32.5 g/dL (32.0-36.0); Mean Corpuscular Hemoglobin 32.1 pg (27.0-31.0); Mean Corpuscular Volume 98.9 fL (78.0-98.0); Platelet Count 203 thou/uL (130-400); Pregs Control Background? CLEAR/WHITE (CLR/WHITE); Pregs Control Bar Appear? YES (CONTROL BAR); RBC Distribution Width 12.3 % (11.5-14.5); Red Blood Cell (RBC) Count 3.21 mill/uL (4.20-5.40); White Blood Cell (WBC) Count 8.9 thou/uL (4.8-10.8)
[2019-02-21 23:58] LABS: ALT (SGPT) 8 U/L (8-55); AST (SGOT) 15 U/L (5-34); Alcohol Less than 10 mg/dL (Less than 10); Alkaline Phosphatase 76 U/L (40-150); Anion Gap 12 mmol/L (10-20); BUN (Urea Nitrogen) 15 mg/dL (7.0-18.7); Bilirubin, Total 0.4 mg/dL (0.2-1.2); Calc. Creatinine Clearance 0 mL/min (70-130); Calcium 9.3 mg/dL (7.8-10.44); Carbon Dioxide 28 mmol/L (22-29); Chloride 101 mmol/L (98-107); Estimated GFR-MDRD Greater than 90; Globulin 2.4 g/dL (2.4-3.5); Glucose 115 mg/dL (70-105); Protein, Total 6.4 g/dL (6.0-8.3); Salicylate Less than 8.0 mg/dL (15.0-30.0); Sodium 138 mmol/L (136-145)
[2019-02-22] MEDS ORDERED: Ondansetron PF 4 MG/2 ML Vial ONE (00:25)
[2019-02-22 01:41] LABS: Benzodiazepine Screen Detected (NotDetected); Medtox Reader # READER 4; Opiate Screen Detected (NotDetected); THC/Cannabinoid Screen Detected (NotDetected); Tricyclic Screen Detected (NotDetected)
[2019-02-22 01:42] LABS: Amphetamine Not Detected (NotDetected); Barbiturates Screen Not Detected (NotDetected); Cocaine Metabolite Screen Not Detected (NotDetected); Medtox Control Line Valid? VALID (VALID); Methadone Not Detected (NotDetected); Methamphetamine Not Detected (NotDetected); Oxycodone Screen Not Detected (NotDetected); Phencyclidine (PCP) Not Detected (NotDetected)
[2019-02-22 03:27] LABS: Acetaminophen Less than 6.0 mcg/mL (10.0-30.0)
== END 2019-02-22 04:58 | disposition home or self-care (01) ==
LOC: ERS 22:49
DX: T43.591A Poisoning by other antipsychotics and neuroleptics, accidental (unintentional), initial encounter (principal); T48.1X1A Poisoning by skeletal muscle relaxants [neuromuscular blocking agents], accidental (unintentional), initial encounter; T39.1X1A Poisoning by 4-Aminophenol derivatives, accidental (unintentional), initial encounter; F41.9 Anxiety disorder, unspecified; F31.9 Bipolar disorder, unspecified; F43.10 Post-traumatic stress disorder, unspecified; Z79.899 Other long term (current) drug therapy
CPT/HCPCS: 36415; 51701; 80053; 80306; 80307; 84443; 84703; 85025; 93005; 96360; 96361; A4353; J2405

== ENCOUNTER 2019-04-11 07:31 | Emergency (ER) | payer OTHER ==
[2019-04-11 08:27] LABS: #Lymphocytes 1.7 thou/uL (1.20-3.40); #Monocytes 0.4 thou/uL (0.11-0.59); #Neutrophils 2.9 thou/uL (1.40-6.50); %Basophils 0.5 % (0.0-1.0); %Eosinophils 0.7 % (0.0-10.0); %Lymphocytes 33.3 % (21.0-51.0); %Monocytes 8.3 % (0.0-10.0); %Neutrophils 57.1 % (42.0-75.0); Hemoglobin 13.7 g/dL (12.0-16.0); Mean Corpuscular HGB CONC 34.1 g/dL (32.0-36.0); Mean Corpuscular Volume 96.6 fL (78.0-98.0); Mean Platelet Volume 8.2 fL (7.4-10.4); Platelet Count 184 thou/uL (130-400); RBC Distribution Width 11.9 % (11.5-14.5); Red Blood Cell (RBC) Count 4.15 mill/uL (4.20-5.40); White Blood Cell (WBC) Count 5.2 thou/uL (4.8-10.8)
[2019-04-11 08:44] LABS: ALT (SGPT) 9 U/L (8-55); AST (SGOT) 15 U/L (5-34); Albumin 4.4 g/dL (3.5-5.0); Alkaline Phosphatase 90 U/L (40-150); Anion Gap 12 mmol/L (10-20); BUN (Urea Nitrogen) 9 mg/dL (7.0-18.7); Bilirubin, Total 0.3 mg/dL (0.2-1.2); Calc. Creatinine Clearance 0 mL/min (70-130); Calcium 9.3 mg/dL (7.8-10.44); Carbon Dioxide 22 mmol/L (22-29); Chloride 106 mmol/L (98-107); Estimated GFR-MDRD Greater than 90; Globulin 2.5 g/dL (2.4-3.5); Glucose 88 mg/dL (70-105); Lipase 30 U/L (8-78); Potassium 3.9 mmol/L (3.5-5.1); Protein, Total 6.9 g/dL (6.0-8.3); Sodium 136 mmol/L (136-145)
[2019-04-11 08:57] LABS: Bilirubin Negative (Negative); Blood, Urine Negative (Negative); Clarity Clear (Clear); Glucose, Urine (Dipstick) Normal (Negative); Leukocyte Negative Leu/uL (Negative); Nitrite Negative (Negative); Protein, Urine (Dipstick) Negative (Neg-Trace); Urobilinogen Normal mg/dL (Less than 2)
--- NOTE | 2019-04-11 10:23 | CT ---
EXAM: Abdomen and pelvic CT scan with contrast: HISTORY: Swelling and pain to abdomen with vaginal pain, status post hysterectomy in February COMPARISON: 11/22/2018 FINDINGS: The visualized lung bases are clear. Liver: Very small stable hypodensity in the right lobe of the liver Gallbladder:Unremarkable. Pancreas:Unremarkable Spleen:Unremarkable. Adrenal glands:Unremarkable. Kidneys:Tiny nonobstructing right renal calculus. No solid or cystic mass. No evidence for bowel obstruction. No CT evidence for acute appendicitis. The urinary bladder is unremarkable. Minimal free fluid. Status post hysterectomy. IMPRESSION: No significant acute process in the abdomen or pelvis. Status post hysterectomy with minimal free flu id in the pelvis. A small nonobstructing right renal calculus.
[2019-04-11] MEDS ORDERED: Morphine 4 MG/ML VIAL ONE (11:12)
[2019-04-11] MEDS ORDERED: Ondansetron PF 4 MG/2 ML Vial ONE (11:13)
[2019-04-11] MEDS ORDERED: ISOVUE-370 76%-LOCM 1 ML ONE (12:56)
== END 2019-04-11 11:59 | disposition home or self-care (01) ==
LOC: ERS 07:31
DX: R10.9 Unspecified abdominal pain (principal); R10.814 Left lower quadrant abdominal tenderness; R10.813 Right lower quadrant abdominal tenderness; F41.9 Anxiety disorder, unspecified; F31.9 Bipolar disorder, unspecified; F43.10 Post-traumatic stress disorder, unspecified
CPT/HCPCS: 36415; 74177; 80053; 81003; 83690; 85025; 96374; 96375; J2270; J2405; Q9966

== ENCOUNTER 2019-04-14 00:47 | Emergency (ER) | payer OTHER | END 2019-04-14 03:38 | disposition home or self-care (01) | LOC: ERS 00:47 | DX: F41.9 Anxiety disorder, unspecified (principal); F10.129 Alcohol abuse with intoxication, unspecified; F31.9 Bipolar disorder, unspecified; F43.10 Post-traumatic stress disorder, unspecified | CPT/HCPCS: 99283 ==

== ENCOUNTER 2019-04-17 10:53 | Emergency (ER) | payer OTHER | END 2019-04-17 11:55 | disposition home or self-care (01) | LOC: ERS 10:53 | DX: J02.9 Acute pharyngitis, unspecified (principal); F31.9 Bipolar disorder, unspecified; F41.9 Anxiety disorder, unspecified; F43.10 Post-traumatic stress disorder, unspecified | CPT/HCPCS: 87081; 87430; 87804; 99283 ==

== ENCOUNTER 2019-08-14 00:48 | Emergency (ER) | payer OTHER ==
[2019-08-14 01:23] LABS: #Basophils 0.1 thou/uL (0.0-0.2); #Eosinphils 0.1 thou/uL (0.0-0.7); #Lymphocytes 2.7 thou/uL (1.20-3.40); #Monocytes 0.4 thou/uL (0.11-0.59); #Neutrophils 3.4 thou/uL (1.40-6.50); %Basophils 1.6 % (0.0-1.0); %Eosinophils 1.3 % (0.0-10.0); %Lymphocytes 40.6 % (21.0-51.0); %Monocytes 5.3 % (0.0-10.0); %Neutrophils 51.2 % (42.0-75.0); Hemoglobin 14.4 g/dL (12.0-16.0); Mean Corpuscular HGB CONC 33.1 g/dL (32.0-36.0); Mean Corpuscular Hemoglobin 31.7 pg (27.0-31.0); Mean Corpuscular Volume 95.8 fL (78.0-98.0); Mean Platelet Volume 7.9 fL (7.4-10.4); Platelet Count 203 thou/uL (130-400); RBC Distribution Width 12.6 % (11.5-14.5); Red Blood Cell (RBC) Count 4.55 mill/uL (4.20-5.40); White Blood Cell (WBC) Count 6.6 thou/uL (4.8-10.8)
[2019-08-14 01:42] LABS: ALT (SGPT) 11 U/L (8-55); AST (SGOT) 20 U/L (5-34); Albumin 4.4 g/dL (3.5-5.0); Alkaline Phosphatase 76 U/L (40-110); Anion Gap 12 mmol/L (10-20); BUN (Urea Nitrogen) 8 mg/dL (7.0-18.7); Bilirubin, Total 0.4 mg/dL (0.2-1.2); Calc. Creatinine Clearance 0 mL/min (70-130); Calcium 9.3 mg/dL (7.8-10.44); Carbon Dioxide 28 mmol/L (22-29); Chloride 104 mmol/L (98-107); Estimated GFR-MDRD 84; Globulin 2.4 g/dL (2.4-3.5); Glucose 95 mg/dL (70-105); Lipase 19 U/L (8-78); Potassium 3.6 mmol/L (3.5-5.1); Protein, Total 6.8 g/dL (6.0-8.3); Sodium 140 mmol/L (136-145)
[2019-08-14] MEDS ORDERED: Morphine 4 MG/ML VIAL ONE (02:20)
[2019-08-14 02:39] LABS: Bilirubin Negative (Negative); Blood, Urine Negative (Negative); Clarity Clear (Clear); Glucose, Urine (Dipstick) Normal (Negative); Leukocyte Negative Leu/uL (Negative); Nitrite Negative (Negative); Protein, Urine (Dipstick) 20 mg/dL (Neg-Trace); Urobilinogen 3 mg/dL (Less than 2)
[2019-08-14] MEDS ORDERED: diphenhydrAMINE 50 MG/ML VIAL ONE (03:18)
[2019-08-14] MEDS ORDERED: Ondansetron PF 4 MG/2 ML Vial ONE (03:24)
--- NOTE | 2019-08-14 08:41 | RAD ---
SINGLE VIEW CHEST: HISTORY: Back pain and chest pain. COMPARISON: 09/11/2016 FINDINGS: Single view of the chest show normal sized cardiomediastinal silhouette. There is no evidence of cons olidation, mass, or pleural effusion. The bones are unremarkable. IMPRESSION: No evidence of acute cardiopulmonary disease. POS: [facility]
== END 2019-08-14 05:49 | disposition home or self-care (01) ==
LOC: ERS 00:48
DX: M54.5 Low back pain (principal); M53.3 Sacrococcygeal disorders, not elsewhere classified; F31.9 Bipolar disorder, unspecified; F43.10 Post-traumatic stress disorder, unspecified; F41.9 Anxiety disorder, unspecified; Z79.899 Other long term (current) drug therapy
CPT/HCPCS: 36415; 71045; 80053; 81003; 83690; 84484; 85025; 93005; 94760; 96374; 96375; J1200; J2270; J2405

== ENCOUNTER 2019-09-28 15:42 | Emergency (ER) | payer OTHER ==
[2019-09-28 16:18] LABS: #Eosinphils 0.1 thou/uL (0.0-0.7); #Lymphocytes 2.5 thou/uL (1.20-3.40); #Monocytes 0.4 thou/uL (0.11-0.59); #Neutrophils 3.1 thou/uL (1.40-6.50); %Basophils 0.6 % (0.0-1.0); %Eosinophils 0.9 % (0.0-10.0); %Lymphocytes 41.3 % (21.0-51.0); %Monocytes 6.3 % (0.0-10.0); Hemoglobin 13.4 g/dL (12.0-16.0); Mean Corpuscular HGB CONC 34.4 g/dL (32.0-36.0); Mean Corpuscular Hemoglobin 33.8 pg (27.0-31.0); Mean Corpuscular Volume 98.2 fL (78.0-98.0); Mean Platelet Volume 7.9 fL (7.4-10.4); Platelet Count 193 thou/uL (130-400); Red Blood Cell (RBC) Count 3.98 mill/uL (4.20-5.40); White Blood Cell (WBC) Count 6.1 thou/uL (4.8-10.8)
[2019-09-28 16:32] LABS: BHCG - Serum Negative (NEGATIVE); Pregs Control Background? CLEAR/WHITE (CLR/WHITE); Pregs Control Bar Appear? YES (CONTROL BAR)
[2019-09-28 16:38] LABS: ALT (SGPT) 10 U/L (8-55); AST (SGOT) 16 U/L (5-34); Albumin 4.3 g/dL (3.5-5.0); Alkaline Phosphatase 99 U/L (40-110); Anion Gap 11 mmol/L (10-20); BUN (Urea Nitrogen) 8 mg/dL (7.0-18.7); Bilirubin, Total 0.3 mg/dL (0.2-1.2); CK (CPK) 263 U/L (29-168); Calc. Creatinine Clearance 0 mL/min (70-130); Calcium 9.2 mg/dL (7.8-10.44); Carbon Dioxide 25 mmol/L (22-29); Chloride 108 mmol/L (98-107); Estimated GFR-MDRD Greater than 90; Globulin 2.4 g/dL (2.4-3.5); Glucose 91 mg/dL (70-105); Protein, Total 6.7 g/dL (6.0-8.3); Sodium 140 mmol/L (136-145)
--- NOTE | 2019-09-28 16:44 | CT ---
CT head noncontrast HISTORY: Altered mental status. Headache. COMPARISON: 05/20/2018. FINDINGS: There is no evidence of acute intracranial hemorrhage or infarct. The ventricles appear nor mal in size, shape and position. There is no mass effect or shift of midline structures. Visualized paranasal sinuses remain well-aerated. IMPRESSION: No acute intracranial abnormalities are demonstrated.
[2019-09-28 19:02] LABS: Amphetamine Not Detected (NotDetected); Barbiturates Screen Not Detected (NotDetected); Benzodiazepine Screen Not Detected (NotDetected); Cocaine Metabolite Screen Not Detected (NotDetected); Medtox Control Line Valid? VALID (VALID); Medtox Reader # READER 1; Methadone Not Detected (NotDetected); Methamphetamine Not Detected (NotDetected); Opiate Screen Not Detected (NotDetected); Oxycodone Screen Not Detected (NotDetected); Phencyclidine (PCP) Not Detected (NotDetected); THC/Cannabinoid Screen Detected (NotDetected); Tricyclic Screen Not Detected (NotDetected)
== END 2019-09-28 18:55 | disposition home or self-care (01) ==
LOC: ERS 15:42
DX: F41.1 Generalized anxiety disorder (principal); G43.909 Migraine, unspecified, not intractable, without status migrainosus; F31.9 Bipolar disorder, unspecified; F43.10 Post-traumatic stress disorder, unspecified
CPT/HCPCS: 36415; 70450; 80053; 80306; 82550; 84703; 85025; 93005

== ENCOUNTER 2020-05-04 10:20 | Emergency (ER) | payer OTHER ==
[2020-05-04] MEDS ORDERED: Haloperidol Lactate 5 MG/ML VIAL ONE (10:35)
[2020-05-04] MEDS ORDERED: Acetaminophen 500 MG TAB ONE (10:35)
== END 2020-05-04 11:49 | disposition home or self-care (01) ==
LOC: ERS 10:20
DX: R51 Headache (principal); F41.9 Anxiety disorder, unspecified; F31.9 Bipolar disorder, unspecified
CPT/HCPCS: 96372; 99284; J1630

== ENCOUNTER 2021-04-08 09:14 | Emergency (ER) | payer OTHER ==
[2021-04-08] MEDS ORDERED: Ondansetron PF 4 MG/2 ML Vial ONE ×2 (09:37→12:24)
[2021-04-08] MEDS ORDERED: Acetaminophen 500 MG TAB ONE (10:25)
[2021-04-08] MEDS ORDERED: Albuterol 200 PUFF (6.7GM INHALER) ONE (10:43)
[2021-04-08 10:47] LABS: #Lymphocytes 0.7 thou/uL (1.20-3.40); #Monocytes 0.6 thou/uL (0.11-0.59); %Lymphocytes 6.5 % (21.0-51.0); %Monocytes 5.6 % (0.0-10.0); %Neutrophils 87.9 % (42.0-75.0); Hemoglobin 15.9 g/dL (12.0-16.0); Mean Corpuscular HGB CONC 34.2 g/dL (32.0-36.0); Mean Corpuscular Hemoglobin 33.8 pg (27.0-31.0); Mean Corpuscular Volume 98.9 fL (78.0-98.0); Mean Platelet Volume 8.1 fL (7.4-10.4); Platelet Count 139 thou/uL (130-400); RBC Distribution Width 12.2 % (11.5-14.5); Red Blood Cell (RBC) Count 4.69 mill/uL (4.20-5.40); White Blood Cell (WBC) Count 11.3 thou/uL (4.8-10.8)
[2021-04-08 10:57] LABS: ALT (SGPT) 14 U/L (8-55); AST (SGOT) 25 U/L (5-34); Albumin 4.3 g/dL (3.5-5.0); Alkaline Phosphatase 77 U/L (40-110); Anion Gap 19 mmol/L (10-20); BUN (Urea Nitrogen) 9 mg/dL (7.0-18.7); Bilirubin, Total 0.4 mg/dL (0.2-1.2); Calc. Creatinine Clearance 0 mL/min (70-130); Calcium 9.5 mg/dL (7.8-10.44); Carbon Dioxide 24 mmol/L (22-29); Chloride 98 mmol/L (98-107); Globulin 3.7 g/dL (2.4-3.5); Glucose 131 mg/dL (70-105); Lipase 16 U/L (8-78); Sodium 138 mmol/L (136-145)
[2021-04-08 11:04] LABS: Potassium 2.9 mmol/L (3.5-5.1)
[2021-04-08 11:08] LABS: BHCG - Serum Negative (NEGATIVE); Pregs Control Background? CLEAR/WHITE (CLR/WHITE); Pregs Control Bar Appear? YES (CONTROL BAR)
[2021-04-08] MEDS ORDERED: Potassium Chloride 20 MEQ TAB ONE (11:36)
[2021-04-08] MEDS ORDERED: Potassium Chloride 20 MEQ/100 ML PREMIX BAG ONE (11:36)
[2021-04-08 12:46] LABS: Bilirubin Negative (Negative); Blood, Urine 1+ (Negative); Clarity Turbid (Clear); Glucose, Urine (Dipstick) Normal (Negative); Ketone, Urine 60 mg/dL (Negative); Leukocyte 250 Leu/uL (Negative); Nitrite Negative (Negative); Protein, Urine (Dipstick) 20 mg/dL (Neg-Trace); RBC/HPF 0-3 HPF (0-3); Specific Gravity, Urine 1.011 (1.002-1.036); Urobilinogen Normal mg/dL (Less than 2); WBC/HPF 21-50 HPF (0-3); pH, Urine 5.5 (5.0-9.0)
[2021-04-08 12:48] LABS: Bacteria/HPF 1+ HPF (None Seen); Pregnancy Test - Urine (BHCG) Negative (Negative); Pregu Control Background? CLEAR/WHITE (CLR/WHITE); Pregu Control Bar Appear? YES (CONTROL BAR); Specific Gravity 1.011 (1.002-1.036)
== END 2021-04-08 13:57 | disposition home or self-care (01) ==
LOC: ERS 09:14
DX: U07.1 COVID-19 (principal); E86.1 Hypovolemia; E86.0 Dehydration; R79.89 Other specified abnormal findings of blood chemistry; G43.909 Migraine, unspecified, not intractable, without status migrainosus; Z79.899 Other long term (current) drug therapy
CPT/HCPCS: 36415; 71045; 80053; 81003; 81015; 81025; 83690; 83880; 84484; 84703; 85025; 93005; J2405; J3480

== ENCOUNTER 2021-04-10 13:29 | Inpatient (IN) | payer OTHER ==
[2021-04-10] MEDS ORDERED: Dexamethasone 10 MG/ML VIAL ONE (14:17)
[2021-04-10] MEDS ORDERED: Acetaminophen 500 MG TAB ONE (14:17)
[2021-04-10] MEDS ORDERED: Ondansetron PF 4 MG/2 ML Vial ONE (15:22)
[2021-04-10] MEDS ORDERED: Ketorolac Tromethamine 30 MG/ML VIAL ONE (15:39)
[2021-04-10 15:40] LABS: #Lymphocytes 0.5 thou/uL (1.20-3.40); #Monocytes 0.2 thou/uL (0.11-0.59); #Neutrophils 4.7 thou/uL (1.40-6.50); %Basophils 0.4 % (0.0-1.0); %Eosinophils 0.1 % (0.0-10.0); %Lymphocytes 9.2 % (21.0-51.0); %Monocytes 3.3 % (0.0-10.0); Hemoglobin 13.7 g/dL (12.0-16.0); Mean Corpuscular HGB CONC 34.2 g/dL (32.0-36.0); Mean Corpuscular Volume 99.5 fL (78.0-98.0); Mean Platelet Volume 8.5 fL (7.4-10.4); Platelet Count 112 thou/uL (130-400); RBC Distribution Width 11.9 % (11.5-14.5); Red Blood Cell (RBC) Count 4.03 mill/uL (4.20-5.40); White Blood Cell (WBC) Count 5.5 thou/uL (4.8-10.8)
[2021-04-10 16:09] LABS: ALT (SGPT) 22 U/L (8-55); AST (SGOT) 46 U/L (5-34); Albumin 3.9 g/dL (3.5-5.0); Alkaline Phosphatase 58 U/L (40-110); Anion Gap 17 mmol/L (10-20); BUN (Urea Nitrogen) 5 mg/dL (7.0-18.7); Bilirubin, Total 0.6 mg/dL (0.2-1.2); CK (CPK) 473 U/L (29-168); Calc. Creatinine Clearance 0 mL/min (70-130); Calcium 9.4 mg/dL (7.8-10.44); Carbon Dioxide 22 mmol/L (22-29); Chloride 105 mmol/L (98-107); Globulin 3.6 g/dL (2.4-3.5); Glucose 117 mg/dL (70-105); Magnesium 1.6 mg/dL (1.6-2.6); Protein, Total 7.5 g/dL (6.0-8.3); Sodium 141 mmol/L (136-145)
[2021-04-10] MEDS ORDERED: Guaifenesin DM 100-10/5 ML UDCUP PO PRN (18:32)
[2021-04-10] MEDS ORDERED: Ondansetron PF 4 MG/2 ML Vial IVP PRN (18:32)
[2021-04-10] MEDS ORDERED: Loperamide HCl 2 MG CAP PO PRN ×2 (18:32)
[2021-04-10] MEDS ORDERED: Acetaminophen 650 MG Suppository PR PRN (18:32)
[2021-04-10 19:03] VITALS: BMI 24.9
[2021-04-10] MEDS ORDERED: Dexamethasone 10 MG/ML VIAL SLOW IVP SCH (19:30)
[2021-04-10] MEDS: NS 0.9% w/ 40 MEQ KCL 1,000 ML IV SCH (19:51)
[2021-04-10] MEDS: Acetaminophen 325 MG TAB PO PRN (19:52)
[2021-04-10] MEDS: Ondansetron ODT 4 MG TAB PO PRN (19:52)
[2021-04-10] MEDS: Albuterol 200 PUFF (6.7GM INHALER) INH PRN (20:20)
[2021-04-10] MEDS ORDERED: Lorazepam 1 MG TAB PO PRN (20:32)
[2021-04-10] MEDS: Mirtazapine 15 MG Soltab PO SCH (21:25)
[2021-04-11] MEDS: Albuterol 200 PUFF (6.7GM INHALER) INH PRN (02:41)
[2021-04-11] MEDS: GUAIFENESIN DM SF 5 ML UDCUP PO PRN ×2 (03:24→23:29)
[2021-04-11] MEDS ORDERED: Lorazepam 2 MG/ML VIAL ONE (03:42)
[2021-04-11 07:12] LABS: #Lymphocytes 0.3 thou/uL (1.20-3.40); #Monocytes 0.1 thou/uL (0.11-0.59); #Neutrophils 2.4 thou/uL (1.40-6.50); %Basophils 0.2 % (0.0-1.0); %Eosinophils 0.1 % (0.0-10.0); %Lymphocytes 11.8 % (21.0-51.0); %Monocytes 3.6 % (0.0-10.0); %Neutrophils 84.3 % (42.0-75.0); Mean Corpuscular HGB CONC 33.2 g/dL (32.0-36.0); Mean Corpuscular Hemoglobin 33.4 pg (27.0-31.0); Mean Platelet Volume 8.7 fL (7.4-10.4); Platelet Count 109 thou/uL (130-400); Red Blood Cell (RBC) Count 3.61 mill/uL (4.20-5.40); White Blood Cell (WBC) Count 2.9 thou/uL (4.8-10.8)
[2021-04-11 07:22] LABS: Anion Gap 13 mmol/L (10-20); BUN (Urea Nitrogen) 7 mg/dL (7.0-18.7); Calc. Creatinine Clearance 108 mL/min (70-130); Calcium 8.4 mg/dL (7.8-10.44); Carbon Dioxide 24 mmol/L (22-29); Chloride 107 mmol/L (98-107); Glucose 162 mg/dL (70-105); Potassium 3.3 mmol/L (3.5-5.1); Sodium 141 mmol/L (136-145)
[2021-04-11] MEDS: Dexamethasone 10 MG in Sodium Chloride 0.9% 50 ML IVPB SCH (08:26)
[2021-04-11] MEDS: Ascorbic Acid 500 mg Chewable Tablet PO SCH (08:26)
[2021-04-11] MEDS: Zinc Sulfate 220 MG CAP PO SCH (08:26)
[2021-04-11] MEDS: NS 0.9% w/ 40 MEQ KCL 1,000 ML IV SCH ×2 (08:29→23:29)
[2021-04-11] MEDS ORDERED: REMDESIVIR 200 MG in Sodium Chloride 0.9% 250 ML 210 ML IV SCH (08:45)
[2021-04-11] MEDS: Ondansetron ODT 4 MG TAB PO PRN ×2 (09:35→18:22)
[2021-04-11] MEDS: Lorazepam 2 MG/ML VIAL SLOW IVP PRN ×2 (10:52→19:38)
[2021-04-11] MEDS: Benzonatate 100 MG CAP PO PRN ×2 (11:03→17:48)
[2021-04-11] MEDS: Acetaminophen 325 MG TAB PO PRN ×2 (14:20→20:37)
[2021-04-11] MEDS: Mirtazapine 15 MG Soltab PO SCH (20:36)
[2021-04-11] MEDS: Enoxaparin Sodium 40 MG/0.4 ML SYRINGE SC SCH (20:37)
[2021-04-12] MEDS: Albuterol 200 PUFF (6.7GM INHALER) INH PRN (04:16)
[2021-04-12] MEDS: Lorazepam 2 MG/ML VIAL SLOW IVP PRN ×3 (04:16→19:53)
[2021-04-12] MEDS: GUAIFENESIN DM SF 5 ML UDCUP PO PRN (04:17)
[2021-04-12 07:17] LABS: Anion Gap 11 mmol/L (10-20); BUN (Urea Nitrogen) 10 mg/dL (7.0-18.7); Calc. Creatinine Clearance 102 mL/min (70-130); Calcium 8.6 mg/dL (7.8-10.44); Carbon Dioxide 26 mmol/L (22-29); Chloride 109 mmol/L (98-107); Glucose 113 mg/dL (70-105); Potassium 3.4 mmol/L (3.5-5.1); Sodium 143 mmol/L (136-145)
[2021-04-12 07:28] LABS: Hemoglobin 12.9 g/dL (12.0-16.0); Mean Corpuscular HGB CONC 33.9 g/dL (32.0-36.0); Mean Corpuscular Hemoglobin 34.1 pg (27.0-31.0); Mean Platelet Volume 9.3 fL (7.4-10.4); Platelet Count 119 thou/uL (130-400); Red Blood Cell (RBC) Count 3.78 mill/uL (4.20-5.40); White Blood Cell (WBC) Count 5.9 thou/uL (4.8-10.8)
[2021-04-12] MEDS: REMDESIVIR 100 MG in Sodium Chloride 0.9% 250 ML 230 ML IV SCH (07:54)
[2021-04-12] MEDS: Benzonatate 100 MG CAP PO PRN ×4 (07:54→23:53)
[2021-04-12] MEDS: Zinc Sulfate 220 MG CAP PO SCH (07:55)
[2021-04-12] MEDS: Ascorbic Acid 500 mg Chewable Tablet PO SCH (07:55)
[2021-04-12] MEDS: Acetaminophen 325 MG TAB PO PRN (08:49)
[2021-04-12 08:59] LABS: Band 7 % (5-11); Eosinophils 1 % (0-10); Lymphocytes 11 % (21-51); MDiff Complete? YES; Monocytes 5 % (0-10); Neutrophil 75 % (42-75); Platelet Morphology Comment Appears Decreased; RBC Morphology Normal; Reactive Lymphocytes 1 % (0-10)
[2021-04-12] MEDS: Dexamethasone 10 MG in Sodium Chloride 0.9% 50 ML IVPB SCH (10:12)
[2021-04-12] MEDS: NS 0.9% w/ 40 MEQ KCL 1,000 ML IV SCH ×2 (14:42→23:49)
[2021-04-12] MEDS ORDERED: Potassium Chloride 20 MEQ TAB PO SCH (16:45)
[2021-04-12] MEDS: Enoxaparin Sodium 40 MG/0.4 ML SYRINGE SC SCH (19:52)
[2021-04-12] MEDS: Miconazole 2% Vaginal Cream 45 GM TUBE VAG SCH ×2 (19:53→21:00)
[2021-04-12] MEDS: Mirtazapine 15 MG Soltab PO SCH (19:53)
[2021-04-13] MEDS: Lorazepam 2 MG/ML VIAL SLOW IVP PRN ×4 (01:44→20:19)
[2021-04-13 06:26] LABS: #Monocytes 0.2 thou/uL (0.11-0.59); #Neutrophils 4.6 thou/uL (1.40-6.50); %Eosinophils 0.2 % (0.0-10.0); %Lymphocytes 16.7 % (21.0-51.0); %Monocytes 4.1 % (0.0-10.0); Mean Corpuscular HGB CONC 33.8 g/dL (32.0-36.0); Mean Corpuscular Hemoglobin 33.9 pg (27.0-31.0); Mean Platelet Volume 8.9 fL (7.4-10.4); Platelet Count 164 thou/uL (130-400); Red Blood Cell (RBC) Count 3.83 mill/uL (4.20-5.40); White Blood Cell (WBC) Count 5.8 thou/uL (4.8-10.8)
[2021-04-13 06:39] LABS: Anion Gap 11 mmol/L (10-20); BUN (Urea Nitrogen) 12 mg/dL (7.0-18.7); Calc. Creatinine Clearance 112 mL/min (70-130); Calcium 8.5 mg/dL (7.8-10.44); Carbon Dioxide 26 mmol/L (22-29); Chloride 107 mmol/L (98-107); Glucose 89 mg/dL (70-105); Potassium 3.9 mmol/L (3.5-5.1); Sodium 140 mmol/L (136-145)
[2021-04-13] MEDS: Zinc Sulfate 220 MG CAP PO SCH (08:20)
[2021-04-13] MEDS: Ascorbic Acid 500 mg Chewable Tablet PO SCH (08:20)
[2021-04-13] MEDS: Dexamethasone 4 mg/ml Vial SLOW IVP SCH (08:23)
[2021-04-13] MEDS: REMDESIVIR 100 MG in Sodium Chloride 0.9% 250 ML 230 ML IV SCH (09:11)
[2021-04-13] MEDS: Dexamethasone 10 MG in Sodium Chloride 0.9% 50 ML IVPB SCH (11:04)
[2021-04-13] MEDS: NS 0.9% w/ 40 MEQ KCL 1,000 ML IV SCH (12:12)
[2021-04-13] MEDS ORDERED: Sodium Chloride 0.65% Nasal 44 ML BOT EA NARE PRN (16:23)
[2021-04-13] MEDS: Ondansetron ODT 4 MG TAB PO PRN (18:40)
[2021-04-13] MEDS: Enoxaparin Sodium 40 MG/0.4 ML SYRINGE SC SCH (20:19)
[2021-04-13] MEDS: Mirtazapine 15 MG Soltab PO SCH (20:19)
[2021-04-13] MEDS: Miconazole 2% Vaginal Cream 45 GM TUBE VAG SCH (20:20)
[2021-04-13] MEDS: GUAIFENESIN DM SF 5 ML UDCUP PO PRN (20:20)
[2021-04-14] MEDS: NS 0.9% w/ 40 MEQ KCL 1,000 ML IV SCH (01:04)
[2021-04-14] MEDS: Lorazepam 2 MG/ML VIAL SLOW IVP PRN ×2 (03:17→10:32)
[2021-04-14 06:34] LABS: Anion Gap 9 mmol/L (10-20); BUN (Urea Nitrogen) 14 mg/dL (7.0-18.7); Calc. Creatinine Clearance 117 mL/min (70-130); Calcium 8.6 mg/dL (7.8-10.44); Carbon Dioxide 26 mmol/L (22-29); Chloride 107 mmol/L (98-107); Glucose 95 mg/dL (70-105); Potassium 4.1 mmol/L (3.5-5.1); Sodium 138 mmol/L (136-145)
[2021-04-14 06:40] LABS: Hemoglobin 13.2 g/dL (12.0-16.0); Lymphocytes 16 % (21-51); MDiff Complete? YES; Mean Corpuscular HGB CONC 33.9 g/dL (32.0-36.0); Mean Platelet Volume 8.9 fL (7.4-10.4); Monocytes 4 % (0-10); Neutrophil 80 % (42-75); Platelet Count 167 thou/uL (130-400); Platelet Morphology Comment Appears Adequate; RBC Morphology Normal; Red Blood Cell (RBC) Count 3.88 mill/uL (4.20-5.40); White Blood Cell (WBC) Count 5.7 thou/uL (4.8-10.8)
[2021-04-14] MEDS: Ascorbic Acid 500 mg Chewable Tablet PO SCH (07:42)
[2021-04-14] MEDS: Zinc Sulfate 220 MG CAP PO SCH (07:42)
[2021-04-14] MEDS: Dexamethasone 4 mg/ml Vial SLOW IVP SCH (07:42)
[2021-04-14] MEDS: REMDESIVIR 100 MG in Sodium Chloride 0.9% 250 ML 230 ML IV SCH (07:43)
[2021-04-14] MEDS: Lorazepam 1 MG TAB PO PRN ×2 (16:20→20:48)
[2021-04-14] MEDS: Miconazole 2% Vaginal Cream 45 GM TUBE VAG SCH (20:48)
[2021-04-14] MEDS: Enoxaparin Sodium 40 MG/0.4 ML SYRINGE SC SCH (20:48)
[2021-04-14] MEDS: Mirtazapine 15 MG Soltab PO SCH (20:48)
[2021-04-15] MEDS: REMDESIVIR 100 MG in Sodium Chloride 0.9% 250 ML 230 ML IV SCH (09:17)
[2021-04-15] MEDS: Zinc Sulfate 220 MG CAP PO SCH (09:18)
[2021-04-15] MEDS: Ascorbic Acid 500 mg Chewable Tablet PO SCH (09:18)
[2021-04-15] MEDS: Dexamethasone 4 MG TAB PO SCH (09:18)
[2021-04-15] MEDS: Acetaminophen 325 MG TAB PO PRN (09:21)
[2021-04-15] MEDS ORDERED: Iopamidol-370 76% 500 ML 1 ML ONE (09:24)
[2021-04-15] MEDS: Lorazepam 1 MG TAB PO PRN ×3 (09:34→20:35)
[2021-04-15] MEDS ORDERED: traMADol HCl 50 MG TAB PO PRN (10:28)
[2021-04-15] MEDS ORDERED: Cepastat Lozenges 1 LOZ PO SCH (12:45)
[2021-04-15] MEDS: traMADol HCl 50 MG TAB PO PRN ×2 (12:58→20:35)
[2021-04-15] MEDS: Mirtazapine 15 MG Soltab PO SCH (20:35)
[2021-04-15] MEDS: Ondansetron ODT 4 MG TAB PO PRN (20:35)
[2021-04-15] MEDS: Cepastat Lozenges 1 LOZ PO PRN (20:36)
[2021-04-15] MEDS: Benzonatate 100 MG CAP PO PRN (20:36)
[2021-04-15] MEDS: Enoxaparin Sodium 40 MG/0.4 ML SYRINGE SC SCH (20:36)
[2021-04-15] MEDS: Miconazole 2% Vaginal Cream 45 GM TUBE VAG SCH (20:37)
[2021-04-16] MEDS: Cepastat Lozenges 1 LOZ PO PRN ×2 (05:20→08:21)
[2021-04-16] MEDS: Lorazepam 1 MG TAB PO PRN ×3 (05:20→20:48)
[2021-04-16] MEDS: Ascorbic Acid 500 mg Chewable Tablet PO SCH (08:21)
[2021-04-16] MEDS: Zinc Sulfate 220 MG CAP PO SCH (08:21)
[2021-04-16] MEDS: Dexamethasone 4 MG TAB PO SCH (08:21)
[2021-04-16] MEDS: Miconazole 2% Vaginal Cream 45 GM TUBE VAG SCH (20:38)
[2021-04-16] MEDS: Enoxaparin Sodium 40 MG/0.4 ML SYRINGE SC SCH (20:39)
[2021-04-16] MEDS: Mirtazapine 15 MG Soltab PO SCH (20:43)
[2021-04-16] MEDS: traMADol HCl 50 MG TAB PO PRN (20:43)
[2021-04-16] MEDS: Benzonatate 100 MG CAP PO PRN (20:49)
[2021-04-17] MEDS: Ascorbic Acid 500 mg Chewable Tablet PO SCH (09:22)
[2021-04-17] MEDS: Dexamethasone 4 MG TAB PO SCH (09:22)
[2021-04-17] MEDS: Zinc Sulfate 220 MG CAP PO SCH (09:22)
[2021-04-17] MEDS: Lorazepam 1 MG TAB PO PRN (09:52)
[2021-04-17] MEDS ORDERED: Zolpidem Tartrate 5 MG TAB PO PRN (16:41)
[2021-04-17] MEDS ORDERED: Melatonin 3 MG TAB PO PRN (16:41)
[2021-04-17] MEDS: Benzonatate 100 MG CAP PO PRN (17:35)
[2021-04-17] MEDS: Ondansetron ODT 4 MG TAB PO PRN (17:35)
[2021-04-17] MEDS: Miconazole 2% Vaginal Cream 45 GM TUBE VAG SCH (19:56)
[2021-04-17] MEDS: Mirtazapine 15 MG Soltab PO SCH (19:56)
[2021-04-17] MEDS: Enoxaparin Sodium 40 MG/0.4 ML SYRINGE SC SCH (19:56)
[2021-04-18] MEDS: Dexamethasone 4 MG TAB PO SCH (08:40)
[2021-04-18] MEDS: Ascorbic Acid 500 mg Chewable Tablet PO SCH (08:40)
[2021-04-18] MEDS: Zinc Sulfate 220 MG CAP PO SCH (08:40)
[2021-04-18 13:56] VITALS: BP 102/68; TEMP 97.8
== END 2021-04-18 13:53 | disposition home or self-care (01) | DRG 871 ==
LOC: ERS 13:29 → T4-A 15:49
PROVIDERS: ADMIT Internal Medicine; ATTEND Internal Medicine
PROC: 8E0ZXY6 Isolation (ICD-10-PCS; principal; 2021-04-10)
PROC: XW033E5 Introduction of Remdesivir Anti-infective into Peripheral Vein, Percutaneous Approach, New Technology Group 5 (ICD-10-PCS; 2021-04-11)
DX: A41.89 Other specified sepsis (principal); U07.1 COVID-19; J12.82 Pneumonia due to coronavirus disease 2019; J96.01 Acute respiratory failure with hypoxia; G43.909 Migraine, unspecified, not intractable, without status migrainosus; G40.409 Other generalized epilepsy and epileptic syndromes, not intractable, without status epilepticus; F43.10 Post-traumatic stress disorder, unspecified; F31.9 Bipolar disorder, unspecified; E87.6 Hypokalemia; R87.9 Unspecified abnormal finding in specimens from female genital organs; Z87.820 Personal history of traumatic brain injury; Z90.710 Acquired absence of both cervix and uterus; Z98.51 Tubal ligation status; Z88.8 Allergy status to other drugs, medicaments and biological substances; Z79.899 Other long term (current) drug therapy; E86.1 Hypovolemia; E86.0 Dehydration; R79.89 Other specified abnormal findings of blood chemistry
CPT/HCPCS: 36415; 71045; 71275; 80048; 80053; 81003; 81015; 81025; 82550; 83605; 83690; 83735; 83880; 84484; 84703; 85025; 85379; 86140; 87077; 87086; 87186; 93005; 94760; 96365; 96366; 96375; 96376; J0696; J1100; J1650; J1885; J2060; J2405; J2550; J3480; J7050; J8540; Q0162; Q9967

== ENCOUNTER 2021-04-24 05:00 | Emergency (ER) | payer OTHER ==
[2021-04-24] MEDS ORDERED: Ibuprofen 800 MG TAB ONE (05:25)
== END 2021-04-24 06:45 | disposition home or self-care (01) ==
LOC: ERS 05:00
DX: J02.9 Acute pharyngitis, unspecified (principal); Z86.16 Personal history of COVID-19
CPT/HCPCS: 71045; 87081; 87430; 93005; 94760

== ENCOUNTER 2021-05-02 23:09 | Emergency (ER) | payer OTHER ==
[2021-05-03] MEDS ORDERED: Acetaminophen 500 MG TAB ONE (00:02)
== END 2021-05-03 01:08 | disposition home or self-care (01) ==
LOC: ERS 23:09
DX: R07.89 Other chest pain (principal); Z86.16 Personal history of COVID-19
CPT/HCPCS: 36415; 71045; 84484; 93005

== ENCOUNTER 2021-06-11 13:20 | Emergency (ER) | payer OTHER ==
[~2021-06-11 13:20] MED LIST changes: -ISOVUE-370 76%-LOCM 1 ML ONE; +Iopamidol-370 76% 500 ML 1 ML ONE
[2021-06-11] MEDS ORDERED: Ondansetron PF 4 MG/2 ML Vial ONE (14:27)
[2021-06-11 14:33] LABS: #Lymphocytes 1.3 thou/uL (1.20-3.40); #Monocytes 0.2 thou/uL (0.11-0.59); #Neutrophils 4.8 thou/uL (1.40-6.50); %Basophils 0.4 % (0.0-1.0); %Eosinophils 0.2 % (0.0-10.0); %Lymphocytes 20.7 % (21.0-51.0); %Monocytes 3.6 % (0.0-10.0); %Neutrophils 75.2 % (42.0-75.0); Hemoglobin 14.1 g/dL (12.0-16.0); Mean Corpuscular Hemoglobin 34.3 pg (27.0-31.0); Mean Platelet Volume 7.2 fL (7.4-10.4); Platelet Count 256 thou/uL (130-400); RBC Distribution Width 12.4 % (11.5-14.5); White Blood Cell (WBC) Count 6.4 thou/uL (4.8-10.8)
[2021-06-11 14:37] LABS: BHCG - Serum Negative (NEGATIVE); Pregs Control Background? CLEAR/WHITE (CLR/WHITE); Pregs Control Bar Appear? YES (CONTROL BAR)
[2021-06-11 14:51] LABS: ALT (SGPT) 12 U/L (8-55); AST (SGOT) 18 U/L (5-34); Albumin 4.4 g/dL (3.5-5.0); Alkaline Phosphatase 77 U/L (40-110); Anion Gap 17 mmol/L (10-20); BUN (Urea Nitrogen) 7 mg/dL (7.0-18.7); Bilirubin, Total 0.4 mg/dL (0.2-1.2); CK (CPK) 318 U/L (29-168); Calc. Creatinine Clearance 0 mL/min (70-130); Calcium 9.4 mg/dL (7.8-10.44); Carbon Dioxide 20 mmol/L (22-29); Chloride 111 mmol/L (98-107); Globulin 2.7 g/dL (2.4-3.5); Glucose 104 mg/dL (70-105); Lipase 210 U/L (8-78); Potassium 3.8 mmol/L (3.5-5.1); Protein, Total 7.1 g/dL (6.0-8.3); Sodium 144 mmol/L (136-145)
[2021-06-11 14:52] LABS: Acetaminophen Less than 6.0 mcg/mL (10.0-30.0); Alcohol 66 mg/dL (Less than 10); Salicylate Less than 8.0 mg/dL (15.0-30.0)
[2021-06-11 15:02] LABS: Bilirubin Negative (Negative); Blood, Urine Negative (Negative); Clarity Turbid (Clear); Glucose, Urine (Dipstick) Normal (Negative); Ketone, Urine Trace mg/dL (Negative); Leukocyte Negative Leu/uL (Negative); Nitrite Negative (Negative); Protein, Urine (Dipstick) 20 mg/dL (Neg-Trace); Urobilinogen Normal mg/dL (Less than 2); pH, Urine 7.5 (5.0-9.0)
[2021-06-11 15:11] LABS: Amphetamine Not Detected (NotDetected); Barbiturates Screen Not Detected (NotDetected); Benzodiazepine Screen Detected (NotDetected); Cocaine Metabolite Screen Detected (NotDetected); Methadone Not Detected (NotDetected); Methamphetamine Not Detected (NotDetected); Opiate Screen Not Detected (NotDetected); Oxycodone Screen Not Detected (NotDetected); Phencyclidine (PCP) Not Detected (NotDetected); THC/Cannabinoid Screen Detected (NotDetected); Tricyclic Screen Not Detected (NotDetected)
[2021-06-11] MEDS ORDERED: hydrOXYzine 25 MG TAB ONE (15:35)
[2021-06-11] MEDS ORDERED: Ketorolac Tromethamine 30 MG/ML VIAL ONE (15:42)
== END 2021-06-11 17:15 | disposition home or self-care (01) ==
LOC: ERS 13:20
DX: R11.2 Nausea with vomiting, unspecified (principal); R10.9 Unspecified abdominal pain; R74.8 Abnormal levels of other serum enzymes; G43.909 Migraine, unspecified, not intractable, without status migrainosus; Z79.899 Other long term (current) drug therapy
CPT/HCPCS: 36415; 71045; 74177; 80053; 80306; 80307; 81003; 82550; 83690; 84443; 84703; 85025; 96374; 96375; J1885; J2405; Q9967

== ENCOUNTER 2021-07-16 21:03 | Emergency (ER) | payer OTHER | END 2021-07-17 01:16 | disposition left against medical advice (07) | LOC: ERS 21:03 | DX: Z53.21 Procedure and treatment not carried out due to patient leaving prior to being seen by health care provider (principal) | CPT/HCPCS: 71045 ==

== ENCOUNTER 2021-08-01 11:16 | Emergency (ER) | payer OTHER | END 2021-08-01 11:39 | disposition left against medical advice (07) | LOC: ERS 11:16 | DX: Z53.21 Procedure and treatment not carried out due to patient leaving prior to being seen by health care provider (principal) ==

== ENCOUNTER 2021-08-30 23:07 | Emergency (ER) | payer OTHER ==
[2021-08-31 12:59] LABS: SARS-CoV-2 PCR by NAA Not Detected (NotDetected)
== END 2021-08-31 00:05 | disposition home or self-care (01) ==
LOC: ERS 23:07
DX: J32.9 Chronic sinusitis, unspecified (principal); Z20.822 Contact with and (suspected) exposure to COVID-19; Z79.899 Other long term (current) drug therapy
CPT/HCPCS: 99284; U0003; U0005

== ENCOUNTER 2021-09-07 11:27 | Emergency (ER) | payer OTHER ==
[2021-09-07 14:29] LABS: BHCG - Serum Negative (NEGATIVE); Pregs Control Background? CLEAR/WHITE (CLR/WHITE); Pregs Control Bar Appear? YES (CONTROL BAR)
[2021-09-07 14:44] LABS: #Lymphocytes 0.7 thou/uL (1.20-3.40); #Monocytes 0.1 thou/uL (0.11-0.59); #Neutrophils 7.1 thou/uL (1.40-6.50); %Basophils 0.2 % (0.0-1.0); %Eosinophils 0.2 % (0.0-10.0); %Lymphocytes 9.1 % (21.0-51.0); %Monocytes 1.7 % (0.0-10.0); %Neutrophils 88.8 % (42.0-75.0); Mean Corpuscular HGB CONC 33.1 g/dL (32.0-36.0); Mean Corpuscular Hemoglobin 32.3 pg (27.0-31.0); Mean Corpuscular Volume 97.6 fL (78.0-98.0); Platelet Count 216 thou/uL (130-400); RBC Distribution Width 11.9 % (11.5-14.5); Red Blood Cell (RBC) Count 4.64 mill/uL (4.20-5.40)
[2021-09-07 15:48] LABS: ALT (SGPT) 14 U/L (8-55); AST (SGOT) 21 U/L (5-34); Albumin 4.6 g/dL (3.5-5.0); Alkaline Phosphatase 86 U/L (40-110); Anion Gap 16 mmol/L (10-20); BUN (Urea Nitrogen) 9 mg/dL (7.0-18.7); Bilirubin, Total 0.3 mg/dL (0.2-1.2); Calc. Creatinine Clearance 0 mL/min (70-130); Carbon Dioxide 19 mmol/L (22-29); Chloride 106 mmol/L (98-107); Globulin 3.3 g/dL (2.4-3.5); Glucose 97 mg/dL (70-105); Lipase 14 U/L (8-78); Potassium 3.8 mmol/L (3.5-5.1); Protein, Total 7.9 g/dL (6.0-8.3); Sodium 137 mmol/L (136-145)
[2021-09-07] MEDS ORDERED: Ondansetron ODT 4 MG TAB ONE (19:09)
[2021-09-07] MEDS ORDERED: Ketorolac Tromethamine 30 MG/ML VIAL ONE (19:09)
[2021-09-07] MEDS ORDERED: Mag-Al 1200 mg/1200 mg/30 ML UDCUP ONE (19:09)
[2021-09-07] MEDS ORDERED: Pantoprazole 40 MG VIAL ONE (19:09)
[2021-09-07] MEDS ORDERED: Ondansetron PF 4 MG/2 ML Vial ONE (19:09)
[2021-09-07] MEDS ORDERED: Lidocaine Viscous Sol 2% 15 ml UD Cup ONE (19:09)
[2021-09-07 19:27] LABS: Bacteria/HPF None Seen HPF (None Seen); Bilirubin Negative (Negative); Blood, Urine Negative (Negative); Clarity Clear (Clear); Glucose, Urine (Dipstick) Normal (Negative); Ketone, Urine 60 mg/dL (Negative); Leukocyte Negative Leu/uL (Negative); Nitrite Negative (Negative); Protein, Urine (Dipstick) 30 mg/dL (Neg-Trace); RBC/HPF 0-3 HPF (0-3); Specific Gravity, Urine 1.025 (1.002-1.036); Squamous Epithelial 0-3 HPF (0-3); Urobilinogen Normal mg/dL (Less than 2); WBC/HPF 0-3 HPF (0-3); pH, Urine 7.5 (5.0-9.0)
[2021-09-07 21:12] LABS: SARS-CoV-2 NAA Rapid Test Not Detected (NotDetected)
== END 2021-09-07 22:24 | disposition home or self-care (01) ==
LOC: ERS 11:27
DX: K29.70 Gastritis, unspecified, without bleeding (principal); Z20.822 Contact with and (suspected) exposure to COVID-19; I50.9 Heart failure, unspecified; E78.5 Hyperlipidemia, unspecified
CPT/HCPCS: 0240U; 36415; 80053; 81003; 81015; 83690; 84703; 85025; 93005; 96374; 96375; C9113; J1885; J2405; Q0162

== ENCOUNTER 2021-10-09 20:31 | Emergency (ER) | payer OTHER ==
[2021-10-09 22:33] LABS: #Basophils 0.1 thou/uL (0.0-0.2); #Eosinphils 0.1 thou/uL (0.0-0.7); #Lymphocytes 2.4 thou/uL (1.20-3.40); #Monocytes 0.4 thou/uL (0.11-0.59); #Neutrophils 3.8 thou/uL (1.40-6.50); %Basophils 0.9 % (0.0-1.0); %Eosinophils 2.1 % (0.0-10.0); %Lymphocytes 35.3 % (21.0-51.0); %Monocytes 5.9 % (0.0-10.0); %Neutrophils 55.8 % (42.0-75.0); Hemoglobin 14.8 g/dL (12.0-16.0); Mean Corpuscular HGB CONC 33.4 g/dL (32.0-36.0); Mean Corpuscular Hemoglobin 32.9 pg (27.0-31.0); Mean Corpuscular Volume 98.4 fL (78.0-98.0); Mean Platelet Volume 7.5 fL (7.4-10.4); Platelet Count 182 thou/uL (130-400); RBC Distribution Width 12.1 % (11.5-14.5); White Blood Cell (WBC) Count 6.8 thou/uL (4.8-10.8)
[2021-10-09 22:58] LABS: ALT (SGPT) 8 U/L (8-55); AST (SGOT) 13 U/L (5-34); Albumin 4.4 g/dL (3.5-5.0); Alkaline Phosphatase 85 U/L (40-110); Anion Gap 14 mmol/L (10-20); BUN (Urea Nitrogen) 10 mg/dL (7.0-18.7); Bilirubin, Total 0.5 mg/dL (0.2-1.2); Calc. Creatinine Clearance 0 mL/min (70-130); Calcium 9.5 mg/dL (7.8-10.44); Carbon Dioxide 23 mmol/L (22-29); Chloride 106 mmol/L (98-107); Globulin 2.5 g/dL (2.4-3.5); Glucose 80 mg/dL (70-105); Potassium 3.9 mmol/L (3.5-5.1); Protein, Total 6.9 g/dL (6.0-8.3); Sodium 139 mmol/L (136-145)
== END 2021-10-09 23:25 | disposition home or self-care (01) ==
LOC: ERS 20:31
DX: R07.81 Pleurodynia (principal); I50.9 Heart failure, unspecified; E78.5 Hyperlipidemia, unspecified; Z79.899 Other long term (current) drug therapy
CPT/HCPCS: 36415; 71045; 80053; 84484; 85025; 93005

== ENCOUNTER 2021-10-27 16:16 | Inpatient (IN) | payer OTHER ==
[2021-10-27 17:39] LABS: Mean Corpuscular HGB CONC 33.6 g/dL (32.0-36.0); Mean Corpuscular Hemoglobin 33.6 pg (27.0-31.0); Mean Corpuscular Volume 99.9 fL (78.0-98.0); Mean Platelet Volume 8.4 fL (7.4-10.4); Platelet Count 126 thou/uL (130-400); RBC Distribution Width 11.9 % (11.5-14.5); Red Blood Cell (RBC) Count 4.47 mill/uL (4.20-5.40); White Blood Cell (WBC) Count 5.2 thou/uL (4.8-10.8)
[2021-10-27 17:43] LABS: BHCG - Serum Negative (NEGATIVE); Pregs Control Background? CLEAR/WHITE (CLR/WHITE); Pregs Control Bar Appear? YES (CONTROL BAR)
[2021-10-27 17:57] LABS: ALT (SGPT) 10 U/L (8-55); AST (SGOT) 17 U/L (5-34); Albumin 4.3 g/dL (3.5-5.0); Alkaline Phosphatase 99 U/L (40-110); Anion Gap 12 mmol/L (10-20); BUN (Urea Nitrogen) 9 mg/dL (7.0-18.7); Bilirubin, Total 0.4 mg/dL (0.2-1.2); CK (CPK) 237 U/L (29-168); Calc. Creatinine Clearance 0 mL/min (70-130); Calcium 9.3 mg/dL (7.8-10.44); Carbon Dioxide 24 mmol/L (22-29); Chloride 105 mmol/L (98-107); Eosinophils 4 % (0-10); Globulin 2.7 g/dL (2.4-3.5); Glucose 73 mg/dL (70-105); Lymphocytes 31 % (21-51); MDiff Complete? YES; Magnesium 1.9 mg/dL (1.6-2.6); Monocytes 5 % (0-10); Neutrophil 59 % (42-75); Platelet Morphology Comment Appears Decreased; Potassium 3.4 mmol/L (3.5-5.1); RBC Morphology Normal; Reactive Lymphocytes 1 % (0-10); Sodium 138 mmol/L (136-145)
[2021-10-27 19:52] LABS: Bilirubin Negative (Negative); Blood, Urine Negative (Negative); Clarity Clear (Clear); Glucose, Urine (Dipstick) Normal (Negative); Ketone, Urine Trace mg/dL (Negative); Leukocyte Negative Leu/uL (Negative); Nitrite Negative (Negative); Protein, Urine (Dipstick) 20 mg/dL (Neg-Trace)
[2021-10-27 19:54] LABS: Specific Gravity, Urine 1.049 (1.002-1.036)
[2021-10-27] MEDS ORDERED: Acetaminophen 325 MG TAB PO PRN (21:30)
[2021-10-27] MEDS ORDERED: Acetaminophen 650 MG Suppository PR PRN (21:30)
[2021-10-27] MEDS ORDERED: Ondansetron ODT 4 MG TAB PO PRN (21:30)
[2021-10-27] MEDS ORDERED: Electrolyte Replacement Protocol 1 EACH FS SCH (22:30)
[2021-10-27] MEDS ORDERED: Potassium Chloride 20 MEQ TAB PO SCH (22:45)
[2021-10-27] MEDS ORDERED: Magnesium 2 GM/50 ML 2 GM in Premix Bag 1 BAG IVPB SCH (23:00)
[2021-10-27] MEDS: Morphine 4 MG/ML VIAL SLOW IVP PRN (23:06)
[2021-10-27] MEDS: Sodium Chloride 0.9% 1,000 ML IV SCH (23:08)
[2021-10-27] MEDS: Ondansetron PF 4 MG/2 ML Vial IVP PRN (23:11)
[2021-10-28 00:17] VITALS: BMI 27.8
[2021-10-28] MEDS ORDERED: Lorazepam 1 MG TAB PO SCH (01:00)
[2021-10-28] MEDS: Morphine 4 MG/ML VIAL SLOW IVP PRN ×4 (03:16→20:20)
[2021-10-28 05:14] LABS: Anion Gap 13 mmol/L (10-20); BUN (Urea Nitrogen) 8 mg/dL (7.0-18.7); Calc. Creatinine Clearance 106 mL/min (70-130); Calcium 8.8 mg/dL (7.8-10.44); Carbon Dioxide 22 mmol/L (22-29); Chloride 109 mmol/L (98-107); Glucose 92 mg/dL (70-105); Potassium 3.9 mmol/L (3.5-5.1); Sodium 140 mmol/L (136-145)
[2021-10-28 05:37] LABS: Band 1 % (5-11); Eosinophils 5 % (0-10); Hemoglobin 15.5 g/dL (12.0-16.0); Lymphocytes 47 % (21-51); MDiff Complete? YES; Macrocytosis SLIGHT = 6-15 cells (100X) (0-5/hpf); Mean Corpuscular HGB CONC 33.7 g/dL (32.0-36.0); Mean Corpuscular Hemoglobin 33.8 pg (27.0-31.0); Mean Platelet Volume 7.6 fL (7.4-10.4); Monocytes 1 % (0-10); Neutrophil 45 % (42-75); Platelet Count 219 thou/uL (130-400); Platelet Morphology Comment Appears Adequate; Reactive Lymphocytes 1 % (0-10); Red Blood Cell (RBC) Count 4.59 mill/uL (4.20-5.40); White Blood Cell (WBC) Count 6.6 thou/uL (4.8-10.8)
[2021-10-28] MEDS: Sodium Chloride 0.9% 1,000 ML IV SCH (07:58)
[2021-10-28] MEDS: Ondansetron PF 4 MG/2 ML Vial IVP PRN (07:59)
[2021-10-28] MEDS: Lorazepam 1 MG TAB PO SCH ×2 (07:59→21:19)
[2021-10-28] MEDS ORDERED: diphenhydrAMINE 50 MG/ML VIAL IVP PRN (11:27)
[2021-10-28] MEDS ORDERED: Ketorolac Tromethamine 30 MG/ML VIAL IVP PRN (14:47)
[2021-10-28] MEDS ORDERED: Morphine 4 MG/ML VIAL SLOW IVP SCH (15:30)
[2021-10-28 18:02] LABS: SARS-CoV-2 PCR by NAA Not Detected (NotDetected)
[2021-10-28] MEDS: diphenhydrAMINE 50 MG/ML VIAL IVP PRN (20:20)
[2021-10-28 20:37] LABS: Amphetamine Not Detected (NotDetected); Barbiturates Screen Not Detected (NotDetected); Benzodiazepine Screen Detected (NotDetected); Cocaine Metabolite Screen Detected (NotDetected); Methadone Not Detected (NotDetected); Methamphetamine Not Detected (NotDetected); Opiate Screen Detected (NotDetected); Oxycodone Screen Not Detected (NotDetected); Phencyclidine (PCP) Not Detected (NotDetected); THC/Cannabinoid Screen Detected (NotDetected); Tricyclic Screen Not Detected (NotDetected)
[2021-10-29] MEDS: Morphine 4 MG/ML VIAL SLOW IVP PRN ×4 (00:43→14:33)
[2021-10-29] MEDS: diphenhydrAMINE 50 MG/ML VIAL IVP PRN ×3 (02:57→14:34)
[2021-10-29] MEDS: Lorazepam 1 MG TAB PO SCH (07:55)
[2021-10-29] MEDS ORDERED: ADENOSINE 60 MG/20 ML VIAL ONE (11:31)
[2021-10-29] MEDS ORDERED: Docusate 100 MG CAP PO PRN (11:45)
[2021-10-29 15:37] VITALS: BP 113/71; TEMP 98.2
[2021-10-31] MEDS ORDERED: FLU VACC QS2021-22(6MOS UP)/PF 60 MCG/0.5 ML SYRINGE IM ONE (09:00)
[2021-10-31] MEDS ORDERED: Prevnar 13-Val Conj/PF 0.5 ML SYRINGE IM ONE (09:00)
== END 2021-10-29 17:57 | disposition home or self-care (01) | DRG 312 ==
LOC: ERS 16:16 → 2SW 19:56 → OBSVTOIN 10-29 15:55
PROVIDERS: ADMIT Student in an Organized Health Care Education/Training Program; ATTEND Internal Medicine
DX: R55 Syncope and collapse (principal); R07.89 Other chest pain; Z20.822 Contact with and (suspected) exposure to COVID-19; F12.10 Cannabis abuse, uncomplicated; E78.5 Hyperlipidemia, unspecified; I50.9 Heart failure, unspecified; E87.6 Hypokalemia; D69.6 Thrombocytopenia, unspecified; I08.1 Rheumatic disorders of both mitral and tricuspid valves; I11.0 Hypertensive heart disease with heart failure; F41.9 Anxiety disorder, unspecified; F43.10 Post-traumatic stress disorder, unspecified; Z62.819 Personal history of unspecified abuse in childhood; F14.10 Cocaine abuse, uncomplicated; Z88.8 Allergy status to other drugs, medicaments and biological substances; Z86.16 Personal history of COVID-19; Z87.01 Personal history of pneumonia (recurrent); Z79.899 Other long term (current) drug therapy; Z79.82 Long term (current) use of aspirin; Z79.52 Long term (current) use of systemic steroids; Z90.710 Acquired absence of both cervix and uterus; Z98.51 Tubal ligation status; Z87.891 Personal history of nicotine dependence
CPT/HCPCS: 36415; 71045; 71275; 74174; 78452; 80048; 80053; 80306; 81003; 82550; 83735; 83880; 84443; 84484; 84703; 85025; 93005; 93017; 93306; 96374; 96375; 96376; A9500; G0378; J0153; J1200; J2270; J2405; J3475; J7050; Q0162; U0003; U0005

== ENCOUNTER 2021-12-11 16:56 | Emergency (ER) | payer OTHER ==
[2021-12-11 23:10] LABS: SARS-CoV-2 PCR by NAA Not Detected (NotDetected)
== END 2021-12-11 18:21 | disposition home or self-care (01) ==
LOC: ERS 16:56
DX: J06.9 Acute upper respiratory infection, unspecified (principal); Z20.822 Contact with and (suspected) exposure to COVID-19; E78.5 Hyperlipidemia, unspecified; I50.9 Heart failure, unspecified; Z87.891 Personal history of nicotine dependence
CPT/HCPCS: 71045; 87081; 87430; 87804; U0003; U0005

== ENCOUNTER 2022-01-14 15:50 | Emergency (ER) | payer OTHER ==
[2022-01-14 16:36] LABS: Hemoglobin 16.2 g/dL (12.0-16.0); Mean Corpuscular HGB CONC 33.3 g/dL (32.0-36.0); Mean Corpuscular Hemoglobin 34.1 pg (27.0-31.0); RBC Distribution Width 11.5 % (11.5-14.5); Red Blood Cell (RBC) Count 4.75 mill/uL (4.20-5.40); White Blood Cell (WBC) Count 4.6 thou/uL (4.8-10.8)
[2022-01-14 16:46] LABS: ALT (SGPT) 13 U/L (8-55); AST (SGOT) 20 U/L (5-34); Albumin 4.8 g/dL (3.5-5.0); Alkaline Phosphatase 107 U/L (40-110); Anion Gap 17 mmol/L (10-20); BHCG - Serum Negative (NEGATIVE); BUN (Urea Nitrogen) 8 mg/dL (7.0-18.7); Bilirubin, Total 0.4 mg/dL (0.2-1.2); Calc. Creatinine Clearance 0 mL/min (70-130); Calcium 9.6 mg/dL (7.8-10.44); Carbon Dioxide 20 mmol/L (22-29); Chloride 106 mmol/L (98-107); Globulin 2.9 g/dL (2.4-3.5); Glucose 82 mg/dL (70-105); Lipase 12 U/L (8-78); Potassium 3.6 mmol/L (3.5-5.1); Pregs Control Background? CLEAR/WHITE (CLR/WHITE); Pregs Control Bar Appear? YES (CONTROL BAR); Protein, Total 7.7 g/dL (6.0-8.3); Sodium 139 mmol/L (136-145)
[2022-01-14 16:51] LABS: #Lymphocytes 1.8 thou/uL (1.20-3.40); #Monocytes 0.2 thou/uL (0.11-0.59); #Neutrophils 2.6 thou/uL (1.40-6.50); %Basophils 0.8 % (0.0-1.0); %Eosinophils 0.5 % (0.0-10.0); %Lymphocytes 38.3 % (21.0-51.0); %Monocytes 4.7 % (0.0-10.0); %Neutrophils 55.7 % (42.0-75.0); MDiff Complete? YES; Macrocytosis SLIGHT = 6-15 cells (100X) (0-5/hpf); Mean Platelet Volume 9.7 fL (7.4-10.4); Platelet Count 72 thou/uL (130-400); Platelet Morphology Comment Appears Decreased; Polychromasia SLIGHT = 2-3 cells (100X) (0-2/hpf)
== END 2022-01-14 18:46 | disposition home or self-care (01) ==
LOC: ERS 15:50
DX: R42 Dizziness and giddiness (principal); M79.604 Pain in right leg; D69.6 Thrombocytopenia, unspecified; W10.9XXA Fall (on) (from) unspecified stairs and steps, initial encounter; Y93.67 Activity, basketball; I50.9 Heart failure, unspecified; E78.5 Hyperlipidemia, unspecified; Z87.891 Personal history of nicotine dependence
CPT/HCPCS: 36415; 70450; 71045; 80053; 83690; 83880; 84484; 84703; 85025; 93005; 94760

== ENCOUNTER 2022-02-01 10:02 | Emergency (ER) | payer OTHER ==
[2022-02-01] MEDS ORDERED: Ketorolac Tromethamine 30 MG/ML VIAL ONE (10:54)
[2022-02-01] MEDS ORDERED: Ondansetron PF 4 MG/2 ML Vial ONE (10:54)
[2022-02-01] MEDS ORDERED: Acetaminophen 500 MG TAB ONE (10:54)
[2022-02-01 11:13] LABS: #Eosinphils 0.1 thou/uL (0.0-0.7); #Lymphocytes 1.2 thou/uL (1.20-3.40); #Monocytes 0.5 thou/uL (0.11-0.59); %Basophils 0.8 % (0.0-1.0); %Eosinophils 1.2 % (0.0-10.0); %Lymphocytes 24.6 % (21.0-51.0); %Monocytes 11.2 % (0.0-10.0); %Neutrophils 62.2 % (42.0-75.0); Hemoglobin 15.1 g/dL (12.0-16.0); Mean Corpuscular HGB CONC 32.4 g/dL (32.0-36.0); Mean Corpuscular Hemoglobin 32.3 pg (27.0-31.0); Mean Corpuscular Volume 99.8 fL (78.0-98.0); Mean Platelet Volume 9.1 fL (7.4-10.4); Platelet Count 160 thou/uL (130-400); RBC Distribution Width 11.6 % (11.5-14.5); Red Blood Cell (RBC) Count 4.67 mill/uL (4.20-5.40); White Blood Cell (WBC) Count 4.8 thou/uL (4.8-10.8)
[2022-02-01 11:38] LABS: ALT (SGPT) 11 U/L (8-55); AST (SGOT) 19 U/L (5-34); Albumin 4.3 g/dL (3.5-5.0); Alkaline Phosphatase 87 U/L (40-110); Anion Gap 13 mmol/L (10-20); BUN (Urea Nitrogen) 8 mg/dL (7.0-18.7); Bilirubin, Total 0.4 mg/dL (0.2-1.2); Calc. Creatinine Clearance 0 mL/min (70-130); Calcium 9.6 mg/dL (7.8-10.44); Carbon Dioxide 24 mmol/L (22-29); Chloride 105 mmol/L (98-107); Glucose 86 mg/dL (70-105); Potassium 3.4 mmol/L (3.5-5.1); Protein, Total 7.3 g/dL (6.0-8.3); Sodium 139 mmol/L (136-145)
[2022-02-01 12:45] LABS: SARS-CoV-2 NAA Rapid Test DETECTED (NotDetected)
== END 2022-02-01 12:38 | disposition home or self-care (01) ==
LOC: ERS 10:02 → EEVIPCON 10:02 → ERS 12:38
DX: U07.1 COVID-19 (principal); Z87.891 Personal history of nicotine dependence
CPT/HCPCS: 71045; 80053; 83605; 84484; 85025; 94760; 96361; 96374; 96375; J1885; J2405

== ENCOUNTER 2022-03-14 20:50 | Emergency (ER) | payer OTHER | END 2022-03-14 22:45 | disposition left against medical advice (07) | LOC: ERS 20:50 | DX: Z53.21 Procedure and treatment not carried out due to patient leaving prior to being seen by health care provider (principal) | CPT/HCPCS: 71046 ==

== ENCOUNTER 2022-03-19 02:12 | Emergency (ER) | payer OTHER | END 2022-03-19 03:00 | disposition home or self-care (01) | LOC: ERS 02:12 | DX: J34.89 Other specified disorders of nose and nasal sinuses (principal); E78.5 Hyperlipidemia, unspecified; I50.9 Heart failure, unspecified; F17.210 Nicotine dependence, cigarettes, uncomplicated | CPT/HCPCS: 99282 ==

== ENCOUNTER 2022-04-13 18:15 | Emergency (ER) | payer OTHER ==
[2022-04-13 19:11] LABS: #Eosinphils 0.1 thou/uL (0.0-0.7); #Lymphocytes 1.8 thou/uL (1.20-3.40); #Monocytes 0.3 thou/uL (0.11-0.59); #Neutrophils 3.2 thou/uL (1.40-6.50); %Basophils 0.6 % (0.0-1.0); %Eosinophils 2.2 % (0.0-10.0); %Lymphocytes 33.6 % (21.0-51.0); %Monocytes 5.7 % (0.0-10.0); %Neutrophils 57.9 % (42.0-75.0); Mean Corpuscular HGB CONC 33.5 g/dL (32.0-36.0); Mean Corpuscular Hemoglobin 33.6 pg (27.0-31.0); Mean Platelet Volume 9.5 fL (7.4-10.4); Platelet Count 160 thou/uL (130-400); RBC Distribution Width 12.6 % (11.5-14.5); Red Blood Cell (RBC) Count 4.18 mill/uL (4.20-5.40); White Blood Cell (WBC) Count 5.4 thou/uL (4.8-10.8)
[2022-04-13 19:35] LABS: ALT (SGPT) 8 U/L (8-55); AST (SGOT) 14 U/L (5-34); Albumin 4.2 g/dL (3.5-5.0); Alkaline Phosphatase 100 U/L (40-110); Anion Gap 12 mmol/L (10-20); BUN (Urea Nitrogen) 10 mg/dL (7.0-18.7); Bilirubin, Total 0.3 mg/dL (0.2-1.2); Calc. Creatinine Clearance 0 mL/min (70-130); Calcium 9.4 mg/dL (7.8-10.44); Carbon Dioxide 24 mmol/L (22-29); Chloride 106 mmol/L (98-107); Estimated GFR 93; Globulin 2.6 g/dL (2.4-3.5); Glucose 88 mg/dL (70-105); Lipase 25 U/L (8-78); Potassium 3.5 mmol/L (3.5-5.1); Protein, Total 6.8 g/dL (6.0-8.3); Sodium 138 mmol/L (136-145)
== END 2022-04-13 21:03 | disposition home or self-care (01) ==
LOC: ERS 18:15
DX: R07.89 Other chest pain (principal); R11.0 Nausea; I50.9 Heart failure, unspecified; E78.5 Hyperlipidemia, unspecified
CPT/HCPCS: 36415; 71045; 80053; 83690; 84484; 85025; 93005; 94760

== ENCOUNTER 2022-05-19 09:44 | Emergency (ER) | payer OTHER ==
[2022-05-19 10:45] LABS: #Eosinphils 0.1 thou/uL (0.0-0.7); #Lymphocytes 1.8 thou/uL (1.20-3.40); #Monocytes 0.2 thou/uL (0.11-0.59); #Neutrophils 2.5 thou/uL (1.40-6.50); %Basophils 0.9 % (0.0-1.0); %Eosinophils 1.5 % (0.0-10.0); %Lymphocytes 39.8 % (21.0-51.0); %Monocytes 4.5 % (0.0-10.0); %Neutrophils 53.3 % (42.0-75.0); Hemoglobin 14.2 g/dL (12.0-16.0); Mean Corpuscular HGB CONC 32.3 g/dL (32.0-36.0); Mean Corpuscular Hemoglobin 32.6 pg (27.0-31.0); Mean Platelet Volume 9.5 fL (7.4-10.4); Platelet Count 160 thou/uL (130-400); RBC Distribution Width 12.2 % (11.5-14.5); Red Blood Cell (RBC) Count 4.38 mill/uL (4.20-5.40); White Blood Cell (WBC) Count 4.6 thou/uL (4.8-10.8)
[2022-05-19 10:56] LABS: BHCG - Serum Negative (NEGATIVE); Pregs Control Background? CLEAR/WHITE (CLR/WHITE); Pregs Control Bar Appear? YES (CONTROL BAR)
[2022-05-19 11:05] LABS: ALT (SGPT) 10 U/L (8-55); AST (SGOT) 16 U/L (5-34); Albumin 4.1 g/dL (3.5-5.0); Alkaline Phosphatase 93 U/L (40-110); Anion Gap 9 mmol/L (10-20); BUN (Urea Nitrogen) 8 mg/dL (7.0-18.7); Bilirubin, Total 0.2 mg/dL (0.2-1.2); Calc. Creatinine Clearance 0 mL/min (70-130); Calcium 9.4 mg/dL (7.8-10.44); Carbon Dioxide 28 mmol/L (22-29); Chloride 106 mmol/L (98-107); Estimated GFR 89; Globulin 2.6 g/dL (2.4-3.5); Glucose 97 mg/dL (70-105); Potassium 3.6 mmol/L (3.5-5.1); Protein, Total 6.7 g/dL (6.0-8.3); Sodium 139 mmol/L (136-145)
== END 2022-05-19 12:41 | disposition home or self-care (01) ==
LOC: ERS 09:44
DX: R55 Syncope and collapse (principal); I50.9 Heart failure, unspecified; Z86.16 Personal history of COVID-19
CPT/HCPCS: 36415; 80053; 84703; 85025; 99284

== ENCOUNTER 2022-05-26 21:13 | Emergency (ER) | payer OTHER | END 2022-05-26 21:39 | disposition left against medical advice (07) | LOC: ERS 21:13 | DX: Z53.21 Procedure and treatment not carried out due to patient leaving prior to being seen by health care provider (principal) ==

== ENCOUNTER 2022-07-22 09:06 | Emergency (ER) | payer OTHER ==
[2022-07-22 09:55] LABS: #Eosinphils 0.1 thou/uL (0.0-0.7); #Lymphocytes 1.6 thou/uL (1.20-3.40); #Monocytes 0.3 thou/uL (0.11-0.59); #Neutrophils 1.6 thou/uL (1.40-6.50); %Basophils 0.9 % (0.0-1.0); %Eosinophils 1.4 % (0.0-10.0); %Lymphocytes 45.9 % (21.0-51.0); %Monocytes 6.9 % (0.0-10.0); %Neutrophils 44.9 % (42.0-75.0); Mean Corpuscular HGB CONC 35.6 g/dL (32.0-36.0); Mean Platelet Volume 8.9 fL (7.4-10.4); Platelet Count 155 10x3/uL (130-400); RBC Distribution Width 11.4 % (11.5-14.5); Red Blood Cell (RBC) Count 3.88 mill/uL (4.20-5.40); White Blood Cell (WBC) Count 3.6 10x3/uL (4.8-10.8)
[2022-07-22 10:12] LABS: ALT (SGPT) 10 U/L (8-55); AST (SGOT) 17 U/L (5-34); Alkaline Phosphatase 87 U/L (40-110); Anion Gap 11 mmol/L (10-20); BUN (Urea Nitrogen) 12 mg/dL (7.0-18.7); Bilirubin, Total 0.4 mg/dL (0.2-1.2); Calc. Creatinine Clearance 0 mL/min (70-130); Carbon Dioxide 24 mmol/L (22-29); Chloride 107 mmol/L (98-107); Estimated GFR 92; Globulin 2.1 g/dL (2.4-3.5); Glucose 94 mg/dL (70-105); Potassium 3.7 mmol/L (3.5-5.1); Protein, Total 6.1 g/dL (6.0-8.3); Sodium 138 mmol/L (136-145)
[2022-07-22 10:42] LABS: SARS-CoV-2 NAA Rapid Test Not Detected (NotDetected)
== END 2022-07-22 11:15 | disposition home or self-care (01) ==
LOC: ERS 09:06
DX: R06.02 Shortness of breath (principal); Z20.822 Contact with and (suspected) exposure to COVID-19
CPT/HCPCS: 36415; 71045; 80053; 83880; 84484; 85025; 93005; J7620

== ENCOUNTER 2022-08-27 18:31 | Emergency (ER) | payer OTHER | END 2022-08-27 19:10 | disposition left against medical advice (07) | LOC: ERS 18:31 | DX: Z53.21 Procedure and treatment not carried out due to patient leaving prior to being seen by health care provider (principal) | CPT/HCPCS: 94760 ==

== ENCOUNTER 2022-08-30 09:23 | Emergency (ER) | payer OTHER | END 2022-08-30 13:55 | disposition home or self-care (01) | LOC: ERS 09:23 | DX: S63.501A Unspecified sprain of right wrist, initial encounter (principal); X50.1XXA Overexertion from prolonged static or awkward postures, initial encounter | CPT/HCPCS: 93005 ==

== ENCOUNTER 2022-10-06 13:10 | Emergency (ER) | payer OTHER ==
[2022-10-06 13:54] LABS: #Basophils 0.1 thou/uL (0.0-0.2); #Lymphocytes 1.8 thou/uL (1.20-3.40); #Monocytes 0.3 thou/uL (0.11-0.59); %Basophils 2.6 % (0.0-1.0); %Lymphocytes 42.8 % (21.0-51.0); %Monocytes 5.9 % (0.0-10.0); %Neutrophils 47.7 % (42.0-75.0); Hemoglobin 15.6 g/dL (12.0-16.0); Mean Corpuscular HGB CONC 34.8 g/dL (32.0-36.0); Mean Corpuscular Hemoglobin 34.7 pg (27.0-31.0); Mean Corpuscular Volume 99.7 fl (78.0-98.0); Platelet Count 226 10x3/uL (130-400); RBC Distribution Width 11.5 % (11.5-14.5); White Blood Cell (WBC) Count 4.2 10x3/uL (4.8-10.8)
[2022-10-06] MEDS ORDERED: Acetaminophen 500 MG TAB ONE (14:09)
[2022-10-06] MEDS ORDERED: Prochlorperazine 10 MG/2 ML VIAL ONE (14:09)
[2022-10-06] MEDS ORDERED: Ketorolac Tromethamine 30 MG/ML VIAL ONE (14:09)
[2022-10-06] MEDS ORDERED: diphenhydrAMINE 50 MG/ML VIAL ONE (14:09)
[2022-10-06] MEDS ORDERED: diphenhydrAMINE 25 MG CAP ONE (14:09)
[2022-10-06 14:13] LABS: ALT (SGPT) 13 U/L (8-55); AST (SGOT) 18 U/L (5-34); Albumin 4.3 g/dL (3.5-5.0); Alkaline Phosphatase 82 U/L (40-110); Anion Gap 13 mmol/L (10-20); BUN (Urea Nitrogen) 9 mg/dL (7.0-18.7); Bilirubin, Total 0.8 mg/dL (0.2-1.2); Calc. Creatinine Clearance 0 mL/min (70-130); Calcium 9.3 mg/dL (7.8-10.44); Carbon Dioxide 20 mmol/L (22-29); Chloride 108 mmol/L (98-107); Estimated GFR 88; Globulin 2.6 g/dL (2.4-3.5); Glucose 87 mg/dL (70-105); Potassium 3.8 mmol/L (3.5-5.1); Protein, Total 6.9 g/dL (6.0-8.3); Sodium 137 mmol/L (136-145)
== END 2022-10-06 16:29 | disposition home or self-care (01) ==
LOC: ERS 13:10
DX: R51.9 Headache, unspecified (principal); R11.2 Nausea with vomiting, unspecified; D72.829 Elevated white blood cell count, unspecified; F17.210 Nicotine dependence, cigarettes, uncomplicated
CPT/HCPCS: 36415; 70450; 80053; 85025; 96374; 96375; J0780; J1200; J1885

== ENCOUNTER 2022-10-08 09:29 | Emergency (ER) | payer OTHER ==
[2022-10-08] MEDS ORDERED: Acetaminophen 500 MG TAB ONE (12:48)
[2022-10-08] MEDS ORDERED: Metoclopramide HCl 10 MG/2 ML VIAL ONE (12:49)
[2022-10-08] MEDS ORDERED: diphenhydrAMINE 50 MG/ML VIAL ONE (12:49)
[2022-10-08] MEDS ORDERED: Ketorolac Tromethamine 30 MG/ML VIAL ONE (12:49)
[2022-10-08] MEDS ORDERED: Prochlorperazine 10 MG/2 ML VIAL IVP SCH (13:00)
== END 2022-10-08 14:00 | disposition home or self-care (01) ==
LOC: ERS 09:29
DX: G44.209 Tension-type headache, unspecified, not intractable (principal); F17.290 Nicotine dependence, other tobacco product, uncomplicated
CPT/HCPCS: 70450; 96365; 96375; J0780; J1200; J1885; J2765

== ENCOUNTER 2022-11-08 11:30 | Emergency (ER) | payer OTHER ==
[2022-11-08 12:25] LABS: #Lymphocytes 1.5 thou/uL (1.20-3.40); #Monocytes 0.2 thou/uL (0.11-0.59); #Neutrophils 2.1 thou/uL (1.40-6.50); %Basophils 0.2 % (0.0-1.0); %Eosinophils 1.2 % (0.0-10.0); %Lymphocytes 38.7 % (21.0-51.0); %Monocytes 6.1 % (0.0-10.0); %Neutrophils 53.8 % (42.0-75.0); Hemoglobin 15.2 g/dL (12.0-16.0); Mean Corpuscular HGB CONC 32.6 g/dL (32.0-36.0); Mean Corpuscular Hemoglobin 32.9 pg (27.0-31.0); Mean Platelet Volume 8.1 fL (7.4-10.4); Platelet Count 194 10x3/uL (130-400); RBC Distribution Width 11.7 % (11.5-14.5); Red Blood Cell (RBC) Count 4.63 mill/uL (4.20-5.40); White Blood Cell (WBC) Count 3.9 10x3/uL (4.8-10.8)
[2022-11-08 12:41] LABS: BHCG - Serum Negative (NEGATIVE); Pregs Control Background? CLEAR/WHITE (CLR/WHITE); Pregs Control Bar Appear? YES (CONTROL BAR)
[2022-11-08 12:51] LABS: ALT (SGPT) 12 U/L (8-55); AST (SGOT) 20 U/L (5-34); Acetaminophen Less than 10.0 mcg/mL (10.0-30.0); Albumin 4.5 g/dL (3.5-5.0); Alcohol Less than 10 mg/dL (Less than 10); Alkaline Phosphatase 86 U/L (40-110); Anion Gap 14 mmol/L (10-20); BUN (Urea Nitrogen) 12 mg/dL (7.0-18.7); Bilirubin, Total 0.6 mg/dL (0.2-1.2); CK (CPK) 175 U/L (29-168); Calc. Creatinine Clearance 0 mL/min (70-130); Calcium 9.7 mg/dL (7.8-10.44); Carbon Dioxide 23 mmol/L (22-29); Chloride 106 mmol/L (98-107); Estimated GFR 90; Globulin 2.9 g/dL (2.4-3.5); Glucose 80 mg/dL (70-105); Lipase 42 U/L (8-78); Protein, Total 7.4 g/dL (6.0-8.3); Salicylate Less than 8.0 mg/dL (15.0-30.0); Sodium 139 mmol/L (136-145)
[2022-11-08 13:08] LABS: Bilirubin Negative (Negative); Blood, Urine Negative (Negative); Clarity Clear (Clear); Glucose, Urine (Dipstick) Normal (Negative); Ketone, Urine 10 mg/dL (Negative); Leukocyte Negative Leu/uL (Negative); Nitrite Negative (Negative); Protein, Urine (Dipstick) Negative (Neg-Trace); Specific Gravity, Urine 1.017 (1.002-1.036); Urobilinogen Normal mg/dL (Less than 2)
[2022-11-08 13:11] LABS: Amphetamine Not Detected (NotDetected); Barbiturates Screen Not Detected (NotDetected); Benzodiazepine Screen Not Detected (NotDetected); Cocaine Metabolite Screen Not Detected (NotDetected); Methadone Not Detected (NotDetected); Methamphetamine Not Detected (NotDetected); Opiate Screen Not Detected (NotDetected); Oxycodone Screen Not Detected (NotDetected); Phencyclidine (PCP) Not Detected (NotDetected); THC/Cannabinoid Screen Detected (NotDetected); Tricyclic Screen Not Detected (NotDetected)
== END 2022-11-08 13:31 | disposition home or self-care (01) ==
LOC: ERS 11:30
DX: R07.89 Other chest pain (principal); D72.819 Decreased white blood cell count, unspecified; F17.200 Nicotine dependence, unspecified, uncomplicated
CPT/HCPCS: 36415; 36416; 71045; 80053; 80306; 80307; 81003; 82550; 83690; 84484; 84703; 85025; 93005

== ENCOUNTER 2022-11-25 20:13 | Emergency (ER) | payer OTHER ==
[~2022-11-25 20:13] MED LIST changes: -Iopamidol-370 76% 500 ML 1 ML ONE; +Iopamidol-370 76% 500 ML MDV (1 ML CHARGE) ONE
[2022-11-25 21:11] LABS: #Basophils 0.1 thou/uL (0.0-0.2); #Eosinphils 0.1 thou/uL (0.0-0.7); #Lymphocytes 2.4 thou/uL (1.20-3.40); #Monocytes 0.4 thou/uL (0.11-0.59); #Neutrophils 2.6 thou/uL (1.40-6.50); %Basophils 1.1 % (0.0-1.0); %Eosinophils 1.8 % (0.0-10.0); %Lymphocytes 43.7 % (21.0-51.0); %Monocytes 6.4 % (0.0-10.0); %Neutrophils 47.1 % (42.0-75.0); Mean Corpuscular HGB CONC 32.6 g/dL (32.0-36.0); Mean Platelet Volume 8.7 fL (7.4-10.4); Platelet Count 156 10x3/uL (130-400); RBC Distribution Width 11.9 % (11.5-14.5); Red Blood Cell (RBC) Count 4.83 mill/uL (4.20-5.40); White Blood Cell (WBC) Count 5.5 10x3/uL (4.8-10.8)
[2022-11-25 21:31] LABS: ALT (SGPT) 12 U/L (8-55); AST (SGOT) 19 U/L (5-34); Albumin 4.4 g/dL (3.5-5.0); Alkaline Phosphatase 89 U/L (40-110); Anion Gap 15 mmol/L (10-20); BUN (Urea Nitrogen) 12 mg/dL (7.0-18.7); Bilirubin, Total 0.4 mg/dL (0.2-1.2); CK (CPK) 176 U/L (29-168); Calc. Creatinine Clearance 0 mL/min (70-130); Calcium 9.6 mg/dL (7.8-10.44); Carbon Dioxide 21 mmol/L (22-29); Chloride 106 mmol/L (98-107); Estimated GFR 66; Globulin 2.7 g/dL (2.4-3.5); Glucose 85 mg/dL (70-105); Lipase 44 U/L (8-78); Potassium 3.9 mmol/L (3.5-5.1); Protein, Total 7.1 g/dL (6.0-8.3); Sodium 138 mmol/L (136-145)
[2022-11-25] MEDS ORDERED: Ketorolac Tromethamine 30 MG/ML VIAL ONE (21:41)
[2022-11-25] MEDS ORDERED: Ondansetron PF 4 MG/2 ML Vial ONE (21:41)
[2022-11-25 22:46] LABS: Bilirubin Negative (Negative); Blood, Urine Negative (Negative); Clarity Clear (Clear); Glucose, Urine (Dipstick) Normal (Negative); Ketone, Urine 40 mg/dL (Negative); Leukocyte Negative Leu/uL (Negative); Nitrite Negative (Negative); Protein, Urine (Dipstick) 10 mg/dL (Neg-Trace); Urobilinogen Normal mg/dL (Less than 2)
[2022-11-25 22:47] LABS: Specific Gravity, Urine Greater than 1.060 (1.002-1.036)
== END 2022-11-26 00:48 | disposition home or self-care (01) ==
LOC: ERS 20:13
DX: R10.30 Lower abdominal pain, unspecified (principal); F17.200 Nicotine dependence, unspecified, uncomplicated
CPT/HCPCS: 36415; 74177; 80053; 81003; 82550; 83690; 85025; 87086; 96374; 96375; J1885; J2405; Q9967

== ENCOUNTER 2023-02-11 18:33 | Observation (INO) | payer OTHER ==
[2023-02-11 19:37] LABS: #Eosinphils 0.1 thou/uL (0.0-0.7); #Monocytes 0.3 thou/uL (0.11-0.59); #Neutrophils 3.3 thou/uL (1.40-6.50); %Basophils 0.5 % (0.0-1.0); %Eosinophils 1.1 % (0.0-10.0); %Monocytes 4.4 % (0.0-10.0); %Neutrophils 57.8 % (42.0-75.0); Hemoglobin 16.3 g/dL (12.0-16.0); Mean Corpuscular HGB CONC 33.7 g/dL (32.0-36.0); Mean Corpuscular Hemoglobin 33.7 pg (27.0-31.0); Mean Corpuscular Volume 99.8 fl (78.0-98.0); Platelet Count 209 10x3/uL (130-400); RBC Distribution Width 12.2 % (11.5-14.5); Red Blood Cell (RBC) Count 4.84 mill/uL (4.20-5.40); White Blood Cell (WBC) Count 5.7 10x3/uL (4.8-10.8)
[2023-02-11 19:50] LABS: INR-International Normal Ratio 0.9; Prothrombin Time 12.8 sec (12.0-14.7)
[2023-02-11 20:07] LABS: BHCG - Serum Negative (NEGATIVE); Pregs Control Background? CLEAR/WHITE (CLR/WHITE); Pregs Control Bar Appear? YES (CONTROL BAR)
[2023-02-11 20:09] LABS: Acetaminophen Less than 10 mcg/mL (10.0-30.0); Alcohol Less than 10.0 mg/dL (Less than 10); Salicylate Less than 8.0 mg/dL (15.0-30.0)
[2023-02-11] MEDS ORDERED: Ketorolac Tromethamine 30 MG/ML VIAL ONE (20:11)
[2023-02-11] MEDS ORDERED: Aspirin 300 MG Suppository ONE (20:40)
[2023-02-11 21:42] LABS: Amphetamine Not Detected (NotDetected); Barbiturates Screen Not Detected (NotDetected); Benzodiazepine Screen Not Detected (NotDetected); Cocaine Metabolite Screen Not Detected (NotDetected); Methadone Not Detected (NotDetected); Methamphetamine Not Detected (NotDetected); Opiate Screen Not Detected (NotDetected); Oxycodone Screen Not Detected (NotDetected); Phencyclidine (PCP) Not Detected (NotDetected); THC/Cannabinoid Screen Detected (NotDetected); Tricyclic Screen Not Detected (NotDetected)
[2023-02-11] MEDS ORDERED: Ondansetron PF 4 MG/2 ML Vial IVP PRN (22:03)
[2023-02-11] MEDS ORDERED: Acetaminophen 325 MG TAB PO PRN (22:03)
[2023-02-11] MEDS ORDERED: Fioricet 325/50/40 mg Tablet PO PRN (22:03)
[2023-02-11] MEDS ORDERED: hydrALAZINE 20 MG/ML VIAL SLOW IVP PRN (22:03)
[2023-02-11] MEDS ORDERED: Ondansetron ODT 4 MG TAB PO PRN (22:03)
[2023-02-11] MEDS ORDERED: Fioricet 325/50/40 mg Tablet PO SCH (22:30)
[2023-02-11] MEDS ORDERED: Acetaminophen 325 MG TAB PO SCH (22:30)
[2023-02-11 22:31] LABS: Albumin 3.9 g/dL (3.5-5.0)
[2023-02-11 22:32] LABS: Chloride 108 mmol/L (98-107); Potassium 3.7 mmol/L (3.5-5.1); Sodium 138 mmol/L (136-145)
[2023-02-11 22:33] LABS: Calcium 8.7 mg/dL (7.8-10.44); Glucose 80 mg/dL (70-105)
[2023-02-11 22:34] LABS: Globulin 2.3 g/dL (2.4-3.5); Protein, Total 6.2 g/dL (6.0-8.3)
[2023-02-11 22:35] LABS: Anion Gap 12 mmol/L (10-20); Bilirubin, Total 0.6 mg/dL (0.2-1.2); Carbon Dioxide 22 mmol/L (22-29)
[2023-02-11 22:36] LABS: Alkaline Phosphatase 71 U/L (40-110)
[2023-02-11 22:37] LABS: Calc. Creatinine Clearance 0 mL/min (70-130); Estimated GFR 100
[2023-02-11 22:38] LABS: BUN (Urea Nitrogen) 7 mg/dL (7.0-18.7)
[2023-02-11 22:39] LABS: ALT (SGPT) 8 U/L (8-55); AST (SGOT) 15 U/L (5-34); CK (CPK) 137 U/L (29-168)
[2023-02-12 01:31] VITALS: BMI 21.9
[2023-02-12 05:09] LABS: Hemoglobin A1c 4.9 % (4.0-6.0)
[2023-02-12 05:24] LABS: Anion Gap 11 mmol/L (10-20); BUN (Urea Nitrogen) 8 mg/dL (7.0-18.7); Calc. Creatinine Clearance 95 mL/min (70-130); Calcium 8.8 mg/dL (7.8-10.44); Carbon Dioxide 22 mmol/L (22-29); Cardiac Risk 2.7 (Less than 4.5); Chloride 109 mmol/L (98-107); Cholesterol 132 mg/dl (< 200 Desired); Estimated GFR 98; Glucose 85 mg/dL (70-105); HDL Cholesterol 49 mg/dL (>60 Neg Risk); LDL Cholesterol, Calculated 71 mg/dL; Magnesium 1.9 mg/dL (1.6-2.6); Potassium 3.5 mmol/L (3.5-5.1); Sodium 138 mmol/L (136-145); Triglycerides 61 mg/dL (Less than 150)
[2023-02-12 06:53] LABS: #Eosinphils 0.1 thou/uL (0.0-0.7); #Monocytes 0.4 thou/uL (0.11-0.59); #Neutrophils 2.8 thou/uL (1.40-6.50); %Basophils 0.5 % (0.0-1.0); %Lymphocytes 44.4 % (21.0-51.0); %Monocytes 6.5 % (0.0-10.0); %Neutrophils 47.6 % (42.0-75.0); Hemoglobin 13.4 g/dL (12.0-16.0); Mean Corpuscular HGB CONC 34.4 g/dL (32.0-36.0); Mean Corpuscular Hemoglobin 33.3 pg (27.0-31.0); Mean Platelet Volume 10.1 fL (7.4-10.4); Platelet Count 165 10x3/uL (130-400); Red Blood Cell (RBC) Count 4.02 mill/uL (4.20-5.40); White Blood Cell (WBC) Count 5.9 10x3/uL (4.8-10.8)
[2023-02-12] MEDS ORDERED: Aspirin 300 MG Suppository PR SCH (09:00)
[2023-02-12] MEDS ORDERED: Non-Formulary Item 1 EACH (Mirtazapine [Mirtazapine] 7.5 MG Tablet) PO SCH (09:00)
[2023-02-12] MEDS ORDERED: Aspirin 81 mg Enteric Coated Tablet PO SCH (09:00)
[2023-02-12] MEDS ORDERED: Mirtazapine 15 MG TAB PO SCH ×2 (09:00→21:00)
[2023-02-12 11:41] VITALS: TEMP 97.2
[2023-02-12] MEDS ORDERED: Lorazepam 1 MG TAB PO PRN (12:49)
[2023-02-12 16:34] VITALS: BP 117/80
[2023-02-12] MEDS ORDERED: Atorvastatin Calcium 40 MG TAB PO SCH (21:00)
== END 2023-02-12 16:38 | disposition home or self-care (01) ==
LOC: ERS 18:33 → 2SE 21:03
PROVIDERS: ADMIT Student in an Organized Health Care Education/Training Program; ATTEND Student in an Organized Health Care Education/Training Program
DX: R53.1 Weakness (principal); F41.9 Anxiety disorder, unspecified; F32.A Depression, unspecified; F12.90 Cannabis use, unspecified, uncomplicated; G45.9 Transient cerebral ischemic attack, unspecified; Z88.8 Allergy status to other drugs, medicaments and biological substances; Z79.899 Other long term (current) drug therapy; Z90.710 Acquired absence of both cervix and uterus; Z98.51 Tubal ligation status; Z79.82 Long term (current) use of aspirin
CPT/HCPCS: 0042T; 36415; 36416; 51701; 70450; 70496; 70498; 70551; 71045; 80048; 80053; 80061; 80306; 80307; 82550; 83036; 83735; 84100; 84443; 84484; 84703; 85025; 85610; 85730; 93005; 93010; 94760; 96361; 96374; G0378; J1885

== ENCOUNTER 2023-02-19 13:43 | Emergency (ER) | payer OTHER ==
[2023-02-19 14:33] LABS: #Monocytes 0.2 thou/uL (0.11-0.59); %Basophils 0.3 % (0.0-1.0); %Eosinophils 0.5 % (0.0-10.0); %Lymphocytes 39.9 % (21.0-51.0); %Monocytes 6.3 % (0.0-10.0); %Neutrophils 52.7 % (42.0-75.0); Mean Corpuscular HGB CONC 34.1 g/dL (32.0-36.0); Mean Corpuscular Volume 96.7 fl (78.0-98.0); Mean Platelet Volume 10.3 fL (7.4-10.4); Platelet Count 215 10x3/uL (130-400); RBC Distribution Width 11.8 % (11.5-14.5); Red Blood Cell (RBC) Count 4.85 mill/uL (4.20-5.40); White Blood Cell (WBC) Count 3.8 10x3/uL (4.8-10.8)
[2023-02-19] MEDS ORDERED: Dexamethasone 4 MG TAB ONE (14:50)
[2023-02-19] MEDS ORDERED: Acetaminophen 500 MG TAB ONE (14:50)
[2023-02-19 14:54] LABS: ALT (SGPT) 14 U/L (8-55); AST (SGOT) 21 U/L (5-34); Albumin 4.9 g/dL (3.5-5.0); Alkaline Phosphatase 90 U/L (40-110); Anion Gap 15 mmol/L (10-20); BUN (Urea Nitrogen) 8 mg/dL (7.0-18.7); Bilirubin, Total 0.7 mg/dL (0.2-1.2); Calc. Creatinine Clearance 0 mL/min (70-130); Calcium 10.2 mg/dL (7.8-10.44); Carbon Dioxide 22 mmol/L (22-29); Chloride 108 mmol/L (98-107); Estimated GFR 81; Globulin 2.5 g/dL (2.4-3.5); Glucose 84 mg/dL (70-105); Potassium 3.9 mmol/L (3.5-5.1); Protein, Total 7.4 g/dL (6.0-8.3); Sodium 141 mmol/L (136-145)
== END 2023-02-19 15:56 | disposition home or self-care (01) ==
LOC: ERS 13:43
DX: M79.2 Neuralgia and neuritis, unspecified (principal); D72.819 Decreased white blood cell count, unspecified; I50.9 Heart failure, unspecified; Z86.73 Personal history of transient ischemic attack (TIA), and cerebral infarction without residual deficits
CPT/HCPCS: 36415; 71045; 80053; 84484; 85025; 93005; 94760; J8540

== ENCOUNTER 2023-03-13 12:15 | Emergency (ER) | payer OTHER ==
[2023-03-13] MEDS ORDERED: methylPREDNISolone Sod Succ/PF 125 MG/2 ML VIAL ONE (12:58)
[2023-03-13] MEDS ORDERED: Ketorolac Tromethamine 30 MG/ML VIAL ONE (12:58)
== END 2023-03-13 14:56 | disposition home or self-care (01) ==
LOC: ERS 12:15
DX: R51.9 Headache, unspecified (principal); K04.7 Periapical abscess without sinus; I50.9 Heart failure, unspecified; Z86.73 Personal history of transient ischemic attack (TIA), and cerebral infarction without residual deficits
CPT/HCPCS: 96374; 96375; J1790; J1885; J2930

== ENCOUNTER 2023-04-11 13:50 | Emergency (ER) | payer OTHER ==
[2023-04-11] MEDS ORDERED: hydrOXYzine 25 MG TAB ONE ×2 (14:19)
[2023-04-11] MEDS ORDERED: hydrOXYzine Pamoate 25 mg Capsule ONE (14:25)
== END 2023-04-11 14:45 | disposition home or self-care (01) ==
LOC: ERS 13:50
DX: F41.9 Anxiety disorder, unspecified (principal); I50.9 Heart failure, unspecified; Z86.73 Personal history of transient ischemic attack (TIA), and cerebral infarction without residual deficits
CPT/HCPCS: 93005; Q0177

== ENCOUNTER 2023-04-18 12:05 | Emergency (ER) | payer OTHER ==
[2023-04-18] MEDS ORDERED: Albuterol 200 PUFF INH ONE ×2 (13:10→13:12)
[2023-04-18] MEDS ORDERED: Dexamethasone 4 MG TAB ONE (13:10)
[2023-04-18] MEDS ORDERED: Acetaminophen 500 MG TAB ONE (13:10)
[2023-04-18 14:12] LABS: SARS-CoV-2 NAA Rapid Test Not Detected (NotDetected)
== END 2023-04-18 14:42 | disposition home or self-care (01) ==
LOC: ERS 12:05
DX: B34.9 Viral infection, unspecified (principal); J02.9 Acute pharyngitis, unspecified; I50.9 Heart failure, unspecified; Z86.73 Personal history of transient ischemic attack (TIA), and cerebral infarction without residual deficits; Z20.822 Contact with and (suspected) exposure to COVID-19
CPT/HCPCS: 71045; 87081; 87430; 93005; J8540

== ENCOUNTER 2023-04-20 04:02 | Emergency (ER) | payer OTHER ==
[2023-04-20] MEDS ORDERED: Ketorolac Tromethamine 30 MG/ML VIAL ONE (04:35)
[2023-04-20] MEDS ORDERED: Ondansetron PF 4 MG/2 ML Vial ONE (04:35)
[2023-04-20 05:52] LABS: #Monocytes 0.5 thou/uL (0.11-0.59); #Neutrophils 9.4 thou/uL (1.40-6.50); %Basophils 0.2 % (0.0-1.0); %Eosinophils 0.3 % (0.0-10.0); %Lymphocytes 10.4 % (21.0-51.0); %Monocytes 4.8 % (0.0-10.0); Hemoglobin 14.3 g/dL (12.0-16.0); Mean Corpuscular Hemoglobin 32.9 pg (27.0-31.0); Mean Corpuscular Volume 96.6 fl (78.0-98.0); Mean Platelet Volume 10.6 fL (7.4-10.4); Platelet Count 184 10x3/uL (130-400); RBC Distribution Width 12.2 % (11.5-14.5); Red Blood Cell (RBC) Count 4.35 mill/uL (4.20-5.40); White Blood Cell (WBC) Count 11.1 10x3/uL (4.8-10.8)
[2023-04-20 06:11] LABS: BHCG - Serum Negative (NEGATIVE); Pregs Control Background? CLEAR/WHITE (CLR/WHITE); Pregs Control Bar Appear? YES (CONTROL BAR)
[2023-04-20 06:14] LABS: ALT (SGPT) 13 U/L (8-55); AST (SGOT) 18 U/L (5-34); Albumin 4.9 g/dL (3.5-5.0); Alkaline Phosphatase 81 U/L (40-110); Anion Gap 14 mmol/L (10-20); BUN (Urea Nitrogen) 7 mg/dL (7.0-18.7); Bilirubin, Total 0.9 mg/dL (0.2-1.2); Calc. Creatinine Clearance 0 mL/min (70-130); Calcium 9.9 mg/dL (7.8-10.44); Carbon Dioxide 25 mmol/L (22-29); Chloride 103 mmol/L (98-107); Estimated GFR 85; Globulin 2.9 g/dL (2.4-3.5); Glucose 107 mg/dL (70-105); Magnesium 1.6 mg/dL (1.6-2.6); Potassium 2.9 mmol/L (3.5-5.1); Protein, Total 7.8 g/dL (6.0-8.3); Sodium 139 mmol/L (136-145)
[2023-04-20] MEDS ORDERED: Potassium Chloride 20 MEQ TAB ONE (06:32)
== END 2023-04-20 07:22 | disposition home or self-care (01) ==
LOC: ERS 04:02
DX: E87.6 Hypokalemia (principal); R11.2 Nausea with vomiting, unspecified; I50.9 Heart failure, unspecified
CPT/HCPCS: 36415; 80053; 83735; 84703; 85025; J1885; J2405

== ENCOUNTER 2023-04-20 13:14 | Emergency (ER) | payer OTHER ==
[2023-04-20 14:12] LABS: #Monocytes 0.7 thou/uL (0.11-0.59); #Neutrophils 9.1 thou/uL (1.40-6.50); %Basophils 0.1 % (0.0-1.0); %Eosinophils 0.1 % (0.0-10.0); %Monocytes 6.6 % (0.0-10.0); %Neutrophils 85.9 % (42.0-75.0); Hematocrit 37.4 % (36.0-47.0); Hemoglobin 12.8 g/dL (12.0-16.0); Mean Corpuscular HGB CONC 34.2 g/dL (32.0-36.0); Mean Corpuscular Hemoglobin 32.9 pg (27.0-31.0); Mean Corpuscular Volume 96.1 fl (78.0-98.0); Mean Platelet Volume 10.6 fL (7.4-10.4); Platelet Count 150 10x3/uL (130-400); RBC Distribution Width 12.3 % (11.5-14.5); Red Blood Cell (RBC) Count 3.89 mill/uL (4.20-5.40); White Blood Cell (WBC) Count 10.6 10x3/uL (4.8-10.8)
[2023-04-20] MEDS ORDERED: Haloperidol Lactate 5 MG/ML VIAL ONE (14:22)
[2023-04-20] MEDS ORDERED: diphenhydrAMINE 50 MG/ML VIAL ONE (14:22)
[2023-04-20 14:26] LABS: BHCG - Serum Negative (NEGATIVE); Pregs Control Background? CLEAR/WHITE (CLR/WHITE); Pregs Control Bar Appear? YES (CONTROL BAR)
[2023-04-20 14:36] LABS: Acetaminophen 21 mcg/mL (10.0-30.0); Alcohol Less than 10.0 mg/dL (Less than 10); Lipase 26 U/L (8-78); Salicylate Less than 8.0 mg/dL (15.0-30.0)
[2023-04-20 14:38] LABS: ALT (SGPT) 10 U/L (8-55); AST (SGOT) 16 U/L (5-34); Alkaline Phosphatase 63 U/L (40-110); Anion Gap 14 mmol/L (10-20); BUN (Urea Nitrogen) 6 mg/dL (7.0-18.7); Bilirubin, Total 0.9 mg/dL (0.2-1.2); CK (CPK) 202 U/L (29-168); Calc. Creatinine Clearance 0 mL/min (70-130); Carbon Dioxide 19 mmol/L (22-29); Chloride 107 mmol/L (98-107); Estimated GFR 97; Globulin 2.3 g/dL (2.4-3.5); Glucose 92 mg/dL (70-105); Potassium 3.5 mmol/L (3.5-5.1); Protein, Total 6.3 g/dL (6.0-8.3); Sodium 136 mmol/L (136-145)
[2023-04-20 14:41] LABS: SARS-CoV-2 NAA Rapid Test Not Detected (NotDetected)
[2023-04-20 15:32] LABS: Bacteria/HPF None Seen HPF (None Seen); Bilirubin Negative (Negative); Blood, Urine Negative (Negative); CAUTI Indications for Culture Fever or rigors; Clarity Clear (Clear); Glucose, Urine (Dipstick) Normal (Negative); Ketone, Urine 80 mg/dL (Negative); Leukocyte Negative Leu/uL (Negative); Nitrite Negative (Negative); Protein, Urine (Dipstick) Negative (Neg-Trace); RBC/HPF 0-3 HPF (0-3); Specific Gravity, Urine 1.014 (1.002-1.036); Squamous Epithelial 0-3 HPF (0-3); Urobilinogen Normal mg/dL (Less than 2); WBC/HPF 0-3 HPF (0-3)
[2023-04-20 15:39] LABS: Amphetamine Not Detected (NotDetected); Barbiturates Screen Not Detected (NotDetected); Benzodiazepine Screen Not Detected (NotDetected); Cocaine Metabolite Screen Not Detected (NotDetected); Methadone Not Detected (NotDetected); Methamphetamine Not Detected (NotDetected); Opiate Screen Detected (NotDetected); Oxycodone Screen Not Detected (NotDetected); Phencyclidine (PCP) Not Detected (NotDetected); THC/Cannabinoid Screen Detected (NotDetected); Tricyclic Screen Not Detected (NotDetected)
[2023-04-20 15:40] LABS: Urine Culture Reflex No No
== END 2023-04-20 15:53 | disposition home or self-care (01) ==
LOC: ERS 13:14
DX: F12.288 Cannabis dependence with other cannabis-induced disorder (principal); B34.9 Viral infection, unspecified; I50.9 Heart failure, unspecified; Z20.822 Contact with and (suspected) exposure to COVID-19
CPT/HCPCS: 36415; 71045; 80053; 80306; 80307; 81001; 82550; 83605; 83690; 83735; 84703; 85025; 87040; 93005; 96361; 96374; 96375; J1200; J1630; J1885; J2405

== ENCOUNTER 2023-04-27 09:12 | Emergency (ER) | payer OTHER ==
[2023-04-27] MEDS ORDERED: Ketorolac Tromethamine 30 MG/ML VIAL ONE (09:58)
[2023-04-27] MEDS ORDERED: Acetaminophen 500 MG TAB ONE (09:58)
[2023-04-27 10:26] LABS: Pregnancy Test - Urine (BHCG) Negative (Negative); Pregu Control Background? CLEAR/WHITE (CLR/WHITE); Pregu Control Bar Appear? YES (CONTROL BAR); Specific Gravity 1.015 (1.002-1.036)
[2023-04-27] MEDS ORDERED: Ondansetron PF 4 MG/2 ML Vial ONE (11:04)
== END 2023-04-27 12:39 | disposition home or self-care (01) ==
LOC: ERS 09:12
DX: R51.9 Headache, unspecified (principal); I50.9 Heart failure, unspecified; Z86.73 Personal history of transient ischemic attack (TIA), and cerebral infarction without residual deficits
CPT/HCPCS: 70450; 81025; 96361; 96374; 96375; J1885; J2405

== ENCOUNTER 2023-07-19 19:52 | Emergency (ER) | payer OTHER | END 2023-07-19 20:24 | disposition home or self-care (01) | LOC: ERS 19:52 | DX: R00.2 Palpitations (principal) | CPT/HCPCS: 93005 ==

== ENCOUNTER 2023-07-27 13:59 | Emergency (ER) | payer OTHER | END 2023-07-27 15:40 | disposition home or self-care (01) | LOC: ERS 13:59 | DX: S63.501A Unspecified sprain of right wrist, initial encounter (principal); I50.9 Heart failure, unspecified; W22.01XA Walked into wall, initial encounter ==

== ENCOUNTER 2023-08-18 09:56 | Emergency (ER) | payer OTHER ==
[2023-08-18 11:38] LABS: #Monocytes 0.2 thou/uL (0.11-0.59); #Neutrophils 1.7 thou/uL (1.40-6.50); %Basophils 0.6 % (0.0-1.0); %Eosinophils 0.6 % (0.0-10.0); %Lymphocytes 38.6 % (21.0-51.0); %Monocytes 6.5 % (0.0-10.0); %Neutrophils 53.7 % (42.0-75.0); Hematocrit 39.8 % (36.0-47.0); Hemoglobin 13.6 g/dL (12.0-16.0); Mean Corpuscular HGB CONC 34.2 g/dL (32.0-36.0); Mean Corpuscular Hemoglobin 32.4 pg (27.0-31.0); Mean Corpuscular Volume 94.8 fl (78.0-98.0); Mean Platelet Volume 10.1 fL (7.4-10.4); Platelet Count 181 10x3/uL (130-400); White Blood Cell (WBC) Count 3.1 10x3/uL (4.8-10.8)
[2023-08-18 11:46] LABS: BHCG - Serum Negative (NEGATIVE); Pregs Control Background? CLEAR/WHITE (CLR/WHITE); Pregs Control Bar Appear? YES (CONTROL BAR)
[2023-08-18] MEDS ORDERED: LORazepam 2 MG/ML SYR.(CARPUJECT) ONE (11:51)
[2023-08-18 12:14] LABS: ALT (SGPT) 17 U/L (8-55); AST (SGOT) 22 U/L (5-34); Albumin 4.1 g/dL (3.5-5.0); Alkaline Phosphatase 62 U/L (40-110); Anion Gap 13 mmol/L (10-20); BUN (Urea Nitrogen) 7 mg/dL (7.0-18.7); Bilirubin, Total 0.5 mg/dL (0.2-1.2); CK (CPK) 587 U/L (29-168); Calc. Creatinine Clearance 0 mL/min (70-130); Calcium 8.9 mg/dL (7.8-10.44); Carbon Dioxide 24 mmol/L (22-29); Chloride 107 mmol/L (98-107); Estimated GFR 85; Globulin 2.3 g/dL (2.4-3.5); Glucose 85 mg/dL (70-105); Lipase 13 U/L (8-78); Potassium 3.9 mmol/L (3.5-5.1); Protein, Total 6.4 g/dL (6.0-8.3); Sodium 140 mmol/L (136-145)
[2023-08-18] MEDS ORDERED: Promethazine 25 MG TAB ONE (13:02)
[2023-08-18 14:17] LABS: Troponin I Less than 0.010 ng/mL (< 0.028)
== END 2023-08-18 13:48 | disposition home or self-care (01) ==
LOC: ERS 09:56
DX: K21.9 Gastro-esophageal reflux disease without esophagitis (principal); Z86.73 Personal history of transient ischemic attack (TIA), and cerebral infarction without residual deficits
CPT/HCPCS: 80053; 82550; 83690; 84484; 84703; 85025; 93005; 96374; J2060; Q0169

== ENCOUNTER 2023-10-05 08:58 | Emergency (ER) | payer OTHER ==
[2023-10-05] MEDS ORDERED: Ketorolac Tromethamine 30 MG (1 mL) VIAL ONE (10:24)
[2023-10-05] MEDS ORDERED: Ondansetron PF 4 MG/2 ML Vial ONE (10:24)
[2023-10-05 10:31] LABS: #Monocytes 0.5 thou/uL (0.11-0.59); #Neutrophils 6.3 thou/uL (1.40-6.50); %Basophils 0.2 % (0.0-1.0); %Eosinophils 0.1 % (0.0-10.0); %Lymphocytes 27.4 % (21.0-51.0); %Monocytes 5.4 % (0.0-10.0); %Neutrophils 66.8 % (42.0-75.0); Hematocrit 46.1 % (36.0-47.0); Hemoglobin 15.7 g/dL (12.0-16.0); Mean Corpuscular HGB CONC 34.1 g/dL (32.0-36.0); Mean Corpuscular Hemoglobin 32.7 pg (27.0-31.0); Platelet Count 184 10x3/uL (130-400); RBC Distribution Width 11.9 % (11.5-14.5); White Blood Cell (WBC) Count 9.5 10x3/uL (4.8-10.8)
[2023-10-05 10:58] LABS: ALT (SGPT) 22 U/L (8-55); AST (SGOT) 32 U/L (5-34); Alkaline Phosphatase 81 U/L (40-110); Anion Gap 11 mmol/L (10-20); BUN (Urea Nitrogen) 10 mg/dL (7.0-18.7); Bilirubin, Total 1.2 mg/dL (0.2-1.2); Calc. Creatinine Clearance 0 mL/min (70-130); Calcium 10.1 mg/dL (7.8-10.44); Carbon Dioxide 23 mmol/L (22-29); Chloride 106 mmol/L (98-107); Estimated GFR 79; Glucose 83 mg/dL (70-105); Potassium 3.6 mmol/L (3.5-5.1); Sodium 136 mmol/L (136-145)
[2023-10-05 11:25] LABS: Influenza A by NAA Not Detected (NotDetected); Influenza B by NAA Not Detected (NotDetected); SARS-CoV-2 NAA Rapid Test Not Detected (NotDetected)
== END 2023-10-05 12:00 | disposition home or self-care (01) ==
LOC: ERS 08:58
DX: K04.7 Periapical abscess without sinus (principal); B34.9 Viral infection, unspecified; Z86.73 Personal history of transient ischemic attack (TIA), and cerebral infarction without residual deficits
CPT/HCPCS: 36415; 80053; 83605; 85025; 96374; 96375; J1885; J2405

== ENCOUNTER 2023-11-01 09:21 | Outpatient (CLI) | payer MEDICAID | END 2023-11-01 09:22 | disposition home or self-care (01) | LOC: BICRAD 09:21 | PROVIDERS: ATTEND Nurse Practitioner Family | DX: R09.89 Other specified symptoms and signs involving the circulatory and respiratory systems (principal); R05.9 Cough, unspecified | CPT/HCPCS: 71046 ==

== ENCOUNTER 2023-12-07 13:56 | Emergency (ER) | payer OTHER | END 2023-12-07 17:58 | disposition home or self-care (01) | LOC: ERS 13:56 | DX: F41.9 Anxiety disorder, unspecified (principal); K08.89 Other specified disorders of teeth and supporting structures; I50.9 Heart failure, unspecified; Z86.73 Personal history of transient ischemic attack (TIA), and cerebral infarction without residual deficits | CPT/HCPCS: 96374; 96375; C9113; J2060; J2405; J3010 ==

== ENCOUNTER 2023-12-30 13:01 | Emergency (ER) | payer OTHER ==
[2023-12-30 15:18] LABS: BHCG - Serum Negative (NEGATIVE); Pregs Control Background? CLEAR/WHITE (CLR/WHITE); Pregs Control Bar Appear? YES (CONTROL BAR)
[2023-12-30 15:20] LABS: #Basophils Less than 0.03 10x3/uL (0.0-0.2); %Basophils 0.2 % (0.0-1.0); %Eosinophils 0.7 % (0.0-10.0); %Lymphocytes 40.8 % (21.0-51.0); %Monocytes 5.1 % (0.0-10.0); Hematocrit 40.8 % (36.0-47.0); Hemoglobin 13.8 g/dL (12.0-16.0); Mean Corpuscular HGB CONC 33.8 g/dL (32.0-36.0); Mean Corpuscular Hemoglobin 32.9 pg (27.0-31.0); Mean Corpuscular Volume 97.4 fL (78.0-98.0); Mean Platelet Volume 11.1 fL (7.4-10.4); Platelet Count 192 10x3/uL (130-400); RBC Distribution Width 12.3 % (11.5-14.5); Red Blood Cell (RBC) Count 4.19 mill/uL (4.20-5.40)
[2023-12-30 15:28] LABS: ALT (SGPT) 10 U/L (8-55); AST (SGOT) 19 U/L (5-34); Albumin 4.1 g/dL (3.5-5.0); Alkaline Phosphatase 82 U/L (40-110); Anion Gap 11 mmol/L (10-20); BUN (Urea Nitrogen) 9 mg/dL (7.0-18.7); Bilirubin, Total 0.3 mg/dL (0.2-1.2); Calc. Creatinine Clearance 0 mL/min (70-130); Calcium 9.3 mg/dL (7.8-10.44); Carbon Dioxide 24 mmol/L (22-29); Chloride 108 mmol/L (98-107); Estimated GFR 97; Globulin 3.1 g/dL (2.4-3.5); Glucose 74 mg/dL (70-105); Lipase 25 U/L (8-78); Magnesium 1.8 mg/dL (1.6-2.6); Potassium 3.8 mmol/L (3.5-5.1); Protein, Total 7.2 g/dL (6.0-8.3); Sodium 139 mmol/L (136-145)
[2023-12-30 15:35] LABS: Troponin I Less than 0.010 ng/mL (< 0.028)
== END 2023-12-30 16:05 | disposition home or self-care (01) ==
LOC: ERS 13:01
DX: R07.9 Chest pain, unspecified (principal); M79.601 Pain in right arm; I50.9 Heart failure, unspecified
CPT/HCPCS: 36415; 71045; 80053; 83690; 83735; 84484; 84703; 85025; 93005

== ENCOUNTER 2024-01-30 11:49 | Emergency (ER) | payer OTHER ==
[2024-01-30 13:42] LABS: #Basophils 0.03 10x3/uL (0.0-0.2); #Eosinphils Less than 0.03 10x3/uL (0.0-0.7); %Basophils 0.4 % (0.0-1.0); %Lymphocytes 23.1 % (21.0-51.0); %Monocytes 3.9 % (0.0-10.0); %Neutrophils 72.5 % (42.0-75.0); Hematocrit 40.4 % (36.0-47.0); Hemoglobin 13.6 g/dL (12.0-16.0); Mean Corpuscular HGB CONC 33.7 g/dL (32.0-36.0); Mean Corpuscular Hemoglobin 32.4 pg (27.0-31.0); Mean Corpuscular Volume 96.2 fL (78.0-98.0); Mean Platelet Volume 10.2 fL (7.4-10.4); Platelet Count 214 10x3/uL (130-400); RBC Distribution Width 12.1 % (11.5-14.5)
[2024-01-30 14:03] LABS: ALT (SGPT) 7 U/L (8-55); AST (SGOT) 18 U/L (5-34); Albumin 4.4 g/dL (3.5-5.0); Alkaline Phosphatase 66 U/L (40-110); Anion Gap 11 mmol/L (10-20); BUN (Urea Nitrogen) 9 mg/dL (7.0-18.7); Bilirubin, Total 0.5 mg/dL (0.2-1.2); Calc. Creatinine Clearance 0 mL/min (70-130); Calcium 9.4 mg/dL (7.8-10.44); Carbon Dioxide 23 mmol/L (22-29); Chloride 108 mmol/L (98-107); Estimated GFR 99; Globulin 2.5 g/dL (2.4-3.5); Glucose 87 mg/dL (70-105); Potassium 3.9 mmol/L (3.5-5.1); Protein, Total 6.9 g/dL (6.0-8.3); Sodium 138 mmol/L (136-145)
[2024-01-30] MEDS ORDERED: Acetaminophen 500 MG TAB ONE (14:17)
[2024-01-30 14:23] LABS: BHCG - Serum Negative (NEGATIVE); Pregs Control Background? CLEAR/WHITE (CLR/WHITE); Pregs Control Bar Appear? YES (CONTROL BAR)
[2024-01-30] MEDS ORDERED: fentaNYL 50 mcg/mL 1 mL Vial ONE (16:08)
[2024-01-30] MEDS ORDERED: Ondansetron PF 4 MG/2 ML Vial ONE (16:28)
== END 2024-01-30 19:17 | disposition home or self-care (01) ==
LOC: ERS 11:49
DX: S50.11XA Contusion of right forearm, initial encounter (principal); M79.605 Pain in left leg; F41.9 Anxiety disorder, unspecified; X58.XXXA Exposure to other specified factors, initial encounter
CPT/HCPCS: 36415; 36416; 71275; 80053; 84703; 85025; 85379; 96374; 96375; J2405; J3010

== ENCOUNTER 2024-06-18 09:33 | Emergency (ER) | payer MEDICAID, OTHER, SELFPAY ==
[2024-06-18] MEDS ORDERED: HYDROcodone/Acetaminophen 5/325 mg Tablet ONE (10:46)
== END 2024-06-18 11:42 | disposition home or self-care (01) ==
LOC: ERS 09:33
DX: S80.02XA Contusion of left knee, initial encounter (principal); M25.572 Pain in left ankle and joints of left foot; I50.9 Heart failure, unspecified; W10.8XXA Fall (on) (from) other stairs and steps, initial encounter; Y93.89 Activity, other specified; Z86.73 Personal history of transient ischemic attack (TIA), and cerebral infarction without residual deficits; Z79.01 Long term (current) use of anticoagulants
CPT/HCPCS: 70450

== ENCOUNTER 2024-07-11 16:27 | Emergency (ER) | payer OTHER | END 2024-07-11 19:31 | disposition left against medical advice (07) | LOC: ERS 16:27 | DX: Z53.21 Procedure and treatment not carried out due to patient leaving prior to being seen by health care provider (principal) ==

== ENCOUNTER 2024-07-13 05:06 | Emergency (ER) | payer OTHER ==
[2024-07-13 05:35] LABS: #Basophils 0.03 10x3/uL (0.0-0.2); %Basophils 0.7 % (0.0-1.0); %Lymphocytes 54.7 % (21.0-51.0); %Monocytes 6.2 % (0.0-10.0); %Neutrophils 36.2 % (42.0-75.0); Hematocrit 41.2 % (36.0-47.0); Hemoglobin 13.9 g/dL (12.0-16.0); Mean Corpuscular HGB CONC 33.7 g/dL (32.0-36.0); Mean Corpuscular Hemoglobin 32.3 pg (27.0-31.0); Mean Corpuscular Volume 95.8 fL (78.0-98.0); Mean Platelet Volume 10.2 fL (7.4-10.4); Platelet Count 200 10x3/uL (130-400); RBC Distribution Width 12.1 % (11.5-14.5)
[2024-07-13 05:45] LABS: BHCG - Serum Negative (NEGATIVE); Pregs Control Background? CLEAR/WHITE (CLR/WHITE); Pregs Control Bar Appear? YES (CONTROL BAR)
[2024-07-13 05:52] LABS: ALT (SGPT) 6 U/L (8-55); AST (SGOT) 15 U/L (5-34); Albumin 3.6 g/dL (3.5-5.0); Alkaline Phosphatase 64 U/L (40-110); Anion Gap 11 mmol/L (10-20); BUN (Urea Nitrogen) 9 mg/dL (7.0-18.7); Bilirubin, Total 0.3 mg/dL (0.2-1.2); Calc. Creatinine Clearance 0 mL/min (70-130); Calcium 8.7 mg/dL (7.8-10.44); Carbon Dioxide 24 mmol/L (22-29); Chloride 106 mmol/L (98-107); Estimated GFR 88; Globulin 2.4 g/dL (2.4-3.5); Glucose 95 mg/dL (70-105); Lipase 24 U/L (8-78); Potassium 3.5 mmol/L (3.5-5.1); Sodium 137 mmol/L (136-145)
[2024-07-13] MEDS ORDERED: Promethazine HCl 25 MG/ML VIAL ONE (06:13)
[2024-07-13] MEDS ORDERED: Ketorolac Tromethamine 30 MG (1 mL) VIAL ONE (06:30)
[2024-07-13 07:47] LABS: Bacteria/HPF None Seen HPF (None Seen); Bilirubin Negative (Negative); Blood, Urine Negative (Negative); CAUTI Indications for Culture Pelvic or flank pain; Clarity Turbid (Clear); Glucose, Urine (Dipstick) Normal (Negative); Ketone, Urine Negative (Negative); Leukocyte Negative Leu/uL (Negative); Nitrite Negative (Negative); Protein, Urine (Dipstick) Negative (Neg-Trace); RBC/HPF 0-3 HPF (0-3); Urobilinogen Normal mg/dL (Less than 2); WBC/HPF 0-3 HPF (0-3)
[2024-07-13 07:52] LABS: Urine Culture Reflex No No
== END 2024-07-13 08:11 | disposition home or self-care (01) ==
LOC: ERS 05:06
DX: R19.7 Diarrhea, unspecified (principal); R11.10 Vomiting, unspecified; R10.13 Epigastric pain
CPT/HCPCS: 36415; 80053; 81001; 83605; 83690; 84703; 85025; J1885; J2550

== ENCOUNTER 2024-08-28 18:16 | Emergency (ER) | payer OTHER ==
[2024-08-28] MEDS ORDERED: Acetaminophen 500 MG TAB ONE (19:12)
[2024-08-28] MEDS ORDERED: Lorazepam 2 MG/ML VIAL ONE (19:13)
== END 2024-08-28 21:24 | disposition home or self-care (01) ==
LOC: ERS 18:16
DX: F41.9 Anxiety disorder, unspecified (principal); I50.9 Heart failure, unspecified; E78.5 Hyperlipidemia, unspecified; Z79.82 Long term (current) use of aspirin
CPT/HCPCS: 99284; J2060

== ENCOUNTER 2024-09-05 21:34 | Emergency (ER) | payer OTHER ==
[2024-09-05 23:18] LABS: #Basophils Less than 0.03 10x3/uL (0.0-0.2); %Basophils 0.3 % (0.0-1.0); %Eosinophils 0.5 % (0.0-10.0); %Lymphocytes 46.2 % (21.0-51.0); %Monocytes 5.6 % (0.0-10.0); %Neutrophils 47.4 % (42.0-75.0); Hematocrit 37.4 % (36.0-47.0); Mean Corpuscular HGB CONC 34.8 g/dL (32.0-36.0); Mean Corpuscular Hemoglobin 32.7 pg (27.0-31.0); Platelet Count 168 10x3/uL (130-400); RBC Distribution Width 12.2 % (11.5-14.5); Red Blood Cell (RBC) Count 3.98 mill/uL (4.20-5.40)
[2024-09-05] MEDS ORDERED: Acetaminophen 500 MG TAB ONE (23:21)
[2024-09-05 23:31] LABS: Acetaminophen Less than 10 mcg/mL (Less than 10); Alcohol Less than 10.0 mg/dL (Less than 10); Salicylate Less than 8.0 mg/dL (Less than 8.0)
[2024-09-05 23:32] LABS: ALT (SGPT) 12 U/L (Less than 34); AST (SGOT) 35 U/L (11-34); Alkaline Phosphatase 60 U/L (40-110); Anion Gap 14 mmol/L (10-20); BUN (Urea Nitrogen) 8 mg/dL (7.0-18.7); Bilirubin, Total 1.1 mg/dL (0.3-1.2); Calc. Creatinine Clearance 0 mL/min (70-130); Calcium 8.8 mg/dL (7.8-10.44); Carbon Dioxide 22 mmol/L (22-29); Chloride 106 mmol/L (98-107); Estimated GFR 96; Glucose 73 mg/dL (70-105); Potassium 3.8 mmol/L (3.5-5.1); Sodium 138 mmol/L (136-145)
[2024-09-06] MEDS ORDERED: hydrOXYzine 25 MG TAB ONE (01:46)
== END 2024-09-06 01:57 | disposition home or self-care (01) ==
LOC: ERS 21:34
DX: G40.909 Epilepsy, unspecified, not intractable, without status epilepticus (principal); F41.1 Generalized anxiety disorder; I50.9 Heart failure, unspecified; Z79.01 Long term (current) use of anticoagulants; Z86.73 Personal history of transient ischemic attack (TIA), and cerebral infarction without residual deficits
CPT/HCPCS: 70450; 70486; 80053; 80307; 84146; 85025

== ENCOUNTER 2024-09-25 09:17 | Emergency (ER) | payer OTHER ==
[2024-09-25 09:33] LABS: #Basophils 0.03 10x3/uL (0.0-0.2); #Eosinophils Less than 0.03 10x3/uL (0.0-0.7); %Basophils 0.6 % (0.0-1.0); %Eosinophils 0.4 % (0.0-10.0); %Lymphocytes 37.5 % (21.0-51.0); %Monocytes 5.9 % (0.0-10.0); %Neutrophils 55.4 % (42.0-75.0); Hematocrit 40.5 % (36.0-47.0); Hemoglobin 14.1 g/dL (12.0-16.0); Mean Corpuscular HGB CONC 34.8 g/dL (32.0-36.0); Mean Corpuscular Hemoglobin 32.4 pg (27.0-31.0); Mean Corpuscular Volume 93.1 fL (78.0-98.0); Mean Platelet Volume 9.9 fL (7.4-10.4); Platelet Count 187 10x3/uL (130-400); Red Blood Cell (RBC) Count 4.35 mill/uL (4.20-5.40)
[2024-09-25 09:56] LABS: ALT (SGPT) 9 U/L (Less than 34); AST (SGOT) 21 U/L (11-34); Acetaminophen Less than 10 mcg/mL (Less than 10); Albumin 4.4 g/dL (3.1-4.5); Alkaline Phosphatase 61 U/L (40-110); Anion Gap 15 mmol/L (10-20); BUN (Urea Nitrogen) 6 mg/dL (7.0-18.7); Bilirubin, Total 0.7 mg/dL (0.3-1.2); Calc. Creatinine Clearance 0 mL/min (70-130); Calcium 9.1 mg/dL (7.8-10.44); Carbon Dioxide 23 mmol/L (22-29); Chloride 109 mmol/L (98-107); Estimated GFR 106; Globulin 2.9 g/dL (2.4-3.5); Glucose 87 mg/dL (70-105); Potassium 3.7 mmol/L (3.5-5.1); Protein, Total 7.3 g/dL (6.0-8.3); Salicylate Less than 8.0 mg/dL (Less than 8.0); Sodium 143 mmol/L (136-145)
[2024-09-25 10:00] LABS: BHCG - Serum Negative (NEGATIVE); Pregs Control Background? CLEAR/WHITE (CLR/WHITE); Pregs Control Bar Appear? YES (CONTROL BAR)
[2024-09-25 10:14] LABS: Amphetamine Not Detected (NotDetected); Barbiturates Screen Not Detected (NotDetected); Benzodiazepine Screen Detected (NotDetected); Cocaine Metabolite Screen Not Detected (NotDetected); Methadone Not Detected (NotDetected); Methamphetamine Not Detected (NotDetected); Opiate Screen Not Detected (NotDetected); Oxycodone Screen Not Detected (NotDetected); Phencyclidine (PCP) Not Detected (NotDetected); THC/Cannabinoid Screen Detected (NotDetected); Tricyclic Screen Not Detected (NotDetected)
== END 2024-09-25 11:31 | disposition home or self-care (01) ==
LOC: ERS 09:17
DX: R51.9 Headache, unspecified (principal); F10.129 Alcohol abuse with intoxication, unspecified; Y90.2 Blood alcohol level of 40-59 mg/100 ml; I50.9 Heart failure, unspecified; Z86.73 Personal history of transient ischemic attack (TIA), and cerebral infarction without residual deficits
CPT/HCPCS: 70450; 80053; 80306; 80307; 84703; 85025; 93005

== ENCOUNTER → 2024-10-16 | Emergency (ER) | payer OTHER ==
[~2024-10-16] MED LIST changes: +Acetaminophen 500 MG TAB ONE; +Diazepam 5 MG TAB ONE; -Iopamidol-370 76% 500 ML MDV (1 ML CHARGE) ONE
[2024-10-16 11:52] LABS: Acetaminophen Less than 10 mcg/mL (Less than 10); Alcohol Less than 10.0 mg/dL (Less than 10); Salicylate Less than 8.0 mg/dL (Less than 8.0)
[2024-10-16 12:12] LABS: Bilirubin Negative (Negative); Blood, Urine Negative (Negative); Glucose, Urine (Dipstick) Negative (Negative); Ketone, Urine Negative (Negative); Leukocyte Negative (Negative); Nitrite Negative (Negative); Protein, Urine (Dipstick) Negative (Neg-Trace); Urobilinogen 0.2 mg/dL (Less than 2); pH, Urine 7.5 (5.0-9.0)
[2024-10-16 12:15] LABS: Amphetamine Not Detected (NotDetected); Barbiturates Screen Not Detected (NotDetected); Benzodiazepine Screen Detected (NotDetected); Cocaine Metabolite Screen Not Detected (NotDetected); Methadone Not Detected (NotDetected); Methamphetamine Not Detected (NotDetected); Opiate Screen Detected (NotDetected); Oxycodone Screen Not Detected (NotDetected); Phencyclidine (PCP) Not Detected (NotDetected); THC/Cannabinoid Screen Detected (NotDetected); Tricyclic Screen Not Detected (NotDetected)
[2024-10-16 12:21] LABS: CAUTI Indications for Culture Alt mental st,lethar; RBC/HPF None Seen HPF (0-3); Squamous Epithelial 0-3 HPF (0-3); WBC/HPF 0-3 HPF (0-3)
[2024-10-16 12:24] LABS: Clarity Clear (Clear)
[2024-10-16 12:27] LABS: Bacteria/HPF 1+ HPF (None Seen)
[2024-10-16 12:28] LABS: Urine Culture Reflex No No
== END ==
LOC: ERS 10:44
DX: F43.20 Adjustment disorder, unspecified (principal)
CPT/HCPCS: 36415; 80306; 80307; 81001; 84443; 93005; 99284

== ENCOUNTER 2025-05-08 17:45 | Emergency (ER) | payer OTHER ==
[2025-05-08 18:20] LABS: #Basophils Less than 0.03 10x3/uL (0.0-0.2); #Eosinophils 0.04 10x3/uL (0.0-0.7); #Monocytes 0.30 10x3/uL (0.11-0.59); #Neutrophils 3.39 10x3/uL (1.40-6.50); %Basophils 0.3 % (0.0-1.0); %Eosinophils 0.7 % (0.0-10.0); %Lymphocytes 36.3 % (21.0-51.0); %Monocytes 5.1 % (0.0-10.0); %Neutrophils 57.4 % (42.0-75.0); Hematocrit 39.8 % (36.0-47.0); Hemoglobin 13.2 g/dL (12.0-16.0); Mean Corpuscular Hemoglobin 31.8 pg (27.0-31.0); Mean Corpuscular Volume 95.9 fL (78.0-98.0); Platelet Count 164 10x3/uL (130-400); Red Blood Cell (RBC) Count 4.15 mill/uL (4.20-5.40); White Blood Cell (WBC) Count 5.90 10x3/uL (4.8-10.8)
[2025-05-08 18:37] LABS: BHCG - Serum Negative (NEGATIVE); Pregs Control Background? CLEAR/WHITE (CLR/WHITE); Pregs Control Bar Appear? YES (CONTROL BAR)
[2025-05-08 18:40] LABS: ALT (SGPT) Less than 7 U/L (Less than 34); AST (SGOT) 20 U/L (11-34); Acetaminophen Less than 10 mcg/mL (Less than 10); Albumin 4.0 g/dL (3.1-4.5); Alkaline Phosphatase 66 U/L (40-110); Anion Gap 19 mmol/L (10-20); BUN (Urea Nitrogen) 7 mg/dL (7.0-18.7); Bilirubin, Total 0.7 mg/dL (0.3-1.2); Calc. Creatinine Clearance 0 mL/min (70-130); Calcium 9.1 mg/dL (7.8-10.44); Carbon Dioxide 17 mmol/L (22-29); Chloride 110 mmol/L (98-107); Globulin 2.6 g/dL (2.4-3.5); Glucose 73 mg/dL (70-105); Potassium 3.6 mmol/L (3.5-5.1); Salicylate Less than 8.0 mg/dL (Less than 8.0); Sodium 142 mmol/L (136-145)
[2025-05-08] MEDS ORDERED: Acetaminophen 500 MG TAB ONE (19:51)
[2025-05-08] MEDS ORDERED: diphenhydrAMINE 50 MG/ML VIAL ONE (19:51)
[2025-05-08] MEDS ORDERED: Prochlorperazine 10 MG/2 ML VIAL ONE (19:51)
[2025-05-08 19:53] LABS: Bacteria/HPF None Seen HPF (None Seen); CAUTI Indications for Culture Pelvic or flank pain; Glucose, Urine (Dipstick) Normal (Negative); Leukocyte Negative Leu/uL (Negative); Protein, Urine (Dipstick) Negative (Neg-Trace); RBC/HPF None Seen HPF (0-3); Specific Gravity, Urine 1.006 (1.002-1.036); WBC/HPF None Seen HPF (0-3)
[2025-05-08 19:59] LABS: Cocaine Metabolite Screen PRELIM POSITIVE (Negative); THC/Cannabinoid Screen PRELIM POSITIVE (Negative); Tricyclic Screen Negative (Negative)
[2025-05-08 20:07] LABS: Urine Culture Reflex No No
== END 2025-05-08 20:56 | disposition home or self-care (01) ==
LOC: ERS 17:45
DX: F43.20 Adjustment disorder, unspecified (principal); R56.9 Unspecified convulsions; R51.9 Headache, unspecified; E78.5 Hyperlipidemia, unspecified; I50.9 Heart failure, unspecified; Z86.73 Personal history of transient ischemic attack (TIA), and cerebral infarction without residual deficits; Z55.6 Problems related to health literacy
CPT/HCPCS: 36415; 70450; 71045; 80053; 80306; 80307; 81001; 83605; 84146; 84703; 85025; 93005; 96374; J0780; J1200; J2060

== ENCOUNTER 2025-07-09 22:24 | Emergency (ER) | payer OTHER ==
[~2025-07-09 22:24] MED LIST changes: -Acetaminophen 500 MG TAB ONE; -Diazepam 5 MG TAB ONE; +Iopamidol 370 76% 100 ML VIAL ONE
[2025-07-09] MEDS ORDERED: Ondansetron PF 4 MG/2 ML Vial ONE (23:04)
[2025-07-10 00:17] LABS: #Basophils Less than 0.03 10x3/uL (0.0-0.2); #Eosinophils 0.14 10x3/uL (0.0-0.7); #Monocytes 0.24 10x3/uL (0.11-0.59); #Neutrophils 2.33 10x3/uL (1.40-6.50); %Basophils 0.4 % (0.0-1.0); %Eosinophils 3.0 % (0.0-10.0); %Lymphocytes 41.7 % (21.0-51.0); %Monocytes 5.1 % (0.0-10.0); %Neutrophils 49.6 % (42.0-75.0); Hematocrit 41.3 % (36.0-47.0); Hemoglobin 13.7 g/dL (12.0-16.0); Mean Corpuscular Hemoglobin 31.6 pg (27.0-31.0); Mean Corpuscular Volume 95.2 fL (78.0-98.0); Platelet Count 206 10x3/uL (130-400); Red Blood Cell (RBC) Count 4.34 mill/uL (4.20-5.40); White Blood Cell (WBC) Count 4.70 10x3/uL (4.8-10.8)
[2025-07-10] MEDS ORDERED: diphenhydrAMINE 50 MG/ML VIAL ONE (00:17)
[2025-07-10 00:22] LABS: BHCG - Serum Negative (NEGATIVE); Pregs Control Background? CLEAR/WHITE (CLR/WHITE); Pregs Control Bar Appear? YES (CONTROL BAR)
[2025-07-10 00:30] LABS: ALT (SGPT) 10 U/L (Less than 34); AST (SGOT) 20 U/L (11-34); Albumin 4.2 g/dL (3.1-4.5); Alkaline Phosphatase 71 U/L (40-110); Anion Gap 14 mmol/L (10-20); BUN (Urea Nitrogen) 7 mg/dL (7.0-18.7); Bilirubin, Total 0.3 mg/dL (0.3-1.2); Calc. Creatinine Clearance 0 mL/min (70-130); Calcium 8.9 mg/dL (7.8-10.44); Carbon Dioxide 25 mmol/L (22-29); Chloride 105 mmol/L (98-107); Globulin 2.3 g/dL (2.4-3.5); Glucose 99 mg/dL (70-105); Lipase 27 U/L (8-78); Potassium 3.5 mmol/L (3.5-5.1); Sodium 140 mmol/L (136-145)
== END 2025-07-10 01:00 | disposition home or self-care (01) ==
LOC: ERS 22:24
DX: R10.30 Lower abdominal pain, unspecified (principal); Z86.73 Personal history of transient ischemic attack (TIA), and cerebral infarction without residual deficits; I50.9 Heart failure, unspecified
CPT/HCPCS: 74177; 80053; 83690; 84703; 85025; 96374; 96375; J1200; J2270; J2405; Q9967